=== PATIENT | female | born 1960 | race African-American/Black ===

== ENCOUNTER 2024-04-30 14:46 | Inpatient (IN) | payer OTHER, SELFPAY ==
[2024-04-30] VITALS (12 sets, daily range): BP systolic 109–174; BP diastolic 69–102; BMI 25.3
--- NOTE | 2024-04-30 11:03 | ED.GENMED ---
History of Present Illness
General
Chief Complaint: Breathing Problem
Source: patient, ambulance crew and prison
Time Seen by Provider: 04/30/24 10:42
History of Present Illness
History of Present Illness:
64yoF with a history of type 1 diabetes, mechanical heart valve on Coumadin, ESRD on dialysis M/W/F, chronic respiratory failure on 2L NC, CHF, CVA, chronic pain on opioids, smoldering multiple myeloma, hypertension, hyperlipidemia, anemia, and
seizures presenting via EMS for evaluation of shortness of breath. Majority of history is provided by physician at her prison. Patient was recently admitted on 04/20/[address] head showed a small intracranial hemorrhage which
was monitored without surgical intervention. She was discharged from [facility] yesterday night and arrived at [facility] around 9 PM. She apparently started to have shortness of breath this morning and looked volume
overloaded prompting EMS call. Patient was last dialyzed 2 days ago and is due for dialysis later this afternoon. She denies any chest pain. No reported fevers.
Phy Exam
Physical Exam
Physical Exam:
Chronically ill appearing female, mildly tachypneic
General Physical Exam
General Presentation: no apparent distress
General age: appears older than age
General Skin: warm and dry
General Habitus: elderly
General Mental: alert
ENT Exam
ENT Exam: normocephalic
Cardiovascular Exam
Cardiovascular Exam: regular rate/rhythm and other (mechanical click. 2+ pitting edema to bilateral lower extremities)
Pulmonary Exam
Pulmonary Exam: other (Bibasilar rales. Mildly tachypneic. Oxygen saturation in the 90s on her home oxygen. R tunneled dialysis catheter in place.)
Neurological Exam
Neurological Exam: alert
Skin Exam
Skin Exam: normal color and warm/dry
Psychiatric Exam
Psychiatric Exam: normal mood/affect
Scores
Heart Failure Risk
Heart Failure Risk Score: Not Applicable
Course
Orders/Labs/Results
Orders:
Orders
04/30/24 10:43
Electrocardiogram (*1) Urgent
Reason for Study: Shortness of Breath
EKG- Treatment ONCE
CR Chest - 2 Views Urgent
Comment:
Reason For Exam: SOB
04/30/24 11:22
COVID-19 Antigen Urgent
Source: Nasal Swab
Influenza A+B Rapid Molecular Urgent
YARELI Source: Nasal Swab
Specimen Description:
04/30/24 12:38
Complete Blood Count/With Diff Urgent
Comprehensive Metabolic Panel Urgent
NT-proBNP Urgent
Prothrombin Time Urgent
Troponin I Urgent
04/30/24 13:16
Electrocardiogram (*1) Urgent
Reason for Study: Shortness of Breath
EKG- Treatment ONCE
04/30/24 13:20
CT Chest W/o Iv Contrast Urgent
Comment:
Reason For Exam: SOB, abnormal CXR
04/30/24 13:45
Echo 2D MMode Color/Doppler Stat
Reason for Study: SOB, ACS, elevated trop
04/30/24 14:13
Admit/Transfer Patient As Directed
Co-Sign Provider:
Level of Care: Inpatient admission
Assign to:: Telemetry
Physician / Group: chacho
Diagnosis: chf exacerbation/esrd
Reason for Telemetry: Arrhythmia
Date to Stop Telemetry: 05/03/24
Time to Stop Telemetry: 11:00
Reason for Hospitalization: chf exacerbation/ esrd
Expected length of stay greater than two midnights?: Yes
ELOS- Estimated Length of Stay in days: 2
I certify the patient meets the requirements for IP care: Yes
PRN Pain Medication Management As Directed
May give lesser potent ordered pain med per pt: Yes
preference::
Protocol:: Medication orders for pain may be administered in a
manner that supports deferring to patient preference
when the pt is:
- Requesting an ordered lesser potent pain medication.
Least to most potent pain medications are defined
as: acetaminophen < NSAID < tramadol < opioids
(morphine, oxycodone, hydromorphone).
- Requesting a lesser dose of the same medication IF
ORDERED.
- Requesting a less intrusive route of administration
if both routes are prescribed by the provider (PO <
IV).
04/30/24 14:14
Code Status As Directed
Resuscitation Status: Full Code
04/30/24 Dinner
Potassium, 2 Gram
04/30/24 15:06
Troponin I Q6H
Acetaminophen [Tylenol] 650 mg PO Q4HPRN PRN
Albuterol [ProAIR HFA INHALER] 2 puff INH R Q8HPRN PRN
Bisacodyl [Dulcolax] 10 mg RECTAL DAILYPRN PRN
Bisacodyl [Dulcolax] 5 mg PO [id number] PRN
Dextrose 50%-Water [Dextrose 50% Syringe] 12.5 grams IV [id number] PRN
Glucagon [GlucaGen] 1 mg IM PRN PRN
Ipratropium/Albuterol Sulfate [Duoneb] 3 ml INH R Q6HPRN PRN
Lorazepam [Ativan] 0.5 mg PO TIDPRN PRN
Magnesium Hydroxide [Milk of Magnesia] DOSE ml PO HSPRN PRN
Ondansetron Orally Disint [Zofran Odt (Orally Disintegrating)] 4 mg PO Q6HPRN PRN
Oxycodone [Roxicodone] 15 mg PO Q6HPRN PRN
Polyethylene Glycol Powder [Miralax] 17 grams PO DAILYPRN PRN
melatonin 1 mg PO HSPRN PRN
04/30/24 15:06
CARDIOLOGY CONSULT Routine
Consulting Provider: Jerome Mckeon
Was physician already notified: Yes
NEPHROLOGY CONSULT Routine
Consulting Provider: Yasir Mixon
Was physician already notified: Yes
VTE Contraindication Routine
VTE Mechanical Device Contraindication: Medical Contraindication
Pharmocologic Contraindication: Medical Contraindication
Activity As Directed
Activity Level: As Tolerated
Bedside Glucose Monitoring As Directed
Frequency: AC&HS
Additional Instructions:: Change to q6h if pt on TPN, tube feeding or not eating
Vital Signs As Directed
Frequency: Per unit guidelines
04/30/24 16:30
Insulin Aspart Corrective Low [Novolog Flexpen-Low Resistance] See Protocol SC AC
04/30/24 20:00
Carvedilol [Coreg] 25 mg PO BID
04/30/24 21:06
Troponin I Q6H
04/30/24 22:00
Atorvastatin [Lipitor] 40 mg PO HS
Divalproex Extended Rel. 24 Hr [Depakote ER (24 Hr Release)] 250 mg PO HS
05/01/24 03:06
Troponin I Q6H
05/01/24 06:00
Complete Blood Count/With Diff IN AM
Comprehensive Metabolic Panel IN AM
Glycohemoglobin (HgbA1c) IN AM
05/01/24 08:00
Amiodarone [Pacerone] 200 mg PO DAILY
Calcitriol [Rocaltrol] 0.25 mcg PO DAILY
Cyanocobalamin [Vitamin B-12] 1,000 mcg PO DAILY
Ezetimibe [Zetia] 10 mg PO DAILY
FOLic ACID [Folvite] 1 mg PO DAILY
Ferrous Sulfate [Feosol] 325 mg PO DAILY
Pantoprazole [Protonix] 40 mg PO DAILY
Thiamine HCl [Vitamin B1] 100 mg PO DAILY
insulin glargine [Lantus Solostar U-100 Insulin] 10 unit SC DAILY
05/01/24 09:06
Troponin I Q6H
05/02/24 20:00
Famotidine [Pepcid] 20 mg PO Q48H
05/03/24 11:00
DC Protocol for Telemetry ONCE
Abnormal Lab Results
04/30/24
12:38
WBC 11.8 H 10^3/uL
(4.8-10.8)
RBC 2.82 L 10^6/uL
(4.20-5.40)
Hgb 8.7 L g/dL
(12.0-16.0)
Hct 25.9 L %
(37.0-47.0)
RDW 17.6 H %
(11.5-14.5)
Plt Count 114 L 10^3/uL
(130-400)
MPV 10.8 H fL
(7.4-10.4)
Abs Immat Gran (auto) 0.1 H 10^3/uL
(0-0.05)
Absolute Neuts (auto) 10.2 H 10^3/uL
(1.4-6.5)
Absolute Lymphs (auto) 0.6 L 10^3/uL
(1.2-3.4)
Absolute Monos (auto) 0.9 H 10^3/uL
(0.1-0.6)
Immature Gran % 0.8 H %
(0-0.5)
Neutrophils % 86.5 H %
(42.2-75.2)
Lymphocytes % 4.8 L %
(20.5-51.1)
PT 31.0 H Sec
(11.4-14.6)
Sodium 133 L mmol/L
(135-145)
Potassium 5.6 H mmol/L
(3.5-5.1)
Chloride 95 L mmol/L
(98-107)
Carbon Dioxide 16 L mmol/L
(22-30)
BUN 45 H mg/dl
(7-17)
Creatinine 5.4 H* mg/dL
(0.6-1.0)
Glucose 158 H mg/dl
(70-99)
Total Bilirubin 1.9 H mg/dl
(0.2-1.3)
AST 70 H U/L
(14-36)
Troponin I 11.800 H* ng/ml
04/30/24 12:38
04/30/24 12:38
Vital Signs
Initial and Last Documented VS:
Initial Vital Signs
BP
152/95
04/30/24 10:36
Last Documented Vital Signs
Temp Pulse Resp BP Pulse Ox
97.6 F 97 37 174/92 96
04/30/24 10:44 04/30/24 16:00 04/30/24 16:00 04/30/24 16:00 04/30/24 16:00
MDM/Problems Addressed
Differential Diagnosis Includes:
64yoF with a complex PMH including ESRD on HD, T1DM, mechanical heart valve on Coumadin, CAD, CHF. Recently discharged from [facility] after admission for an intracranial hemorrhage. [facility] at [facility] prison last [facility]. Arrives today with acute
shortness of breath. Due for dialysis today. Chronically on 2L NC. Oxygen saturation 97% on room air. She is chronically ill-appearing and mildly tachypneic. Bibasilar rales noted on exam as well as 2+ pitting edema peripherally. Differential
diagnosis includes but is not limited to: CHF exacerbation, ACS, pneumonia, viral syndrome
Initial ED plan: Check cardiac labs, INR, COVID/flu testing, EKG, and CXR.
*EKG
Interpreted by ED Provider?: Yes
EKG Intrepretation Date: 04/30/24
Heart Rate: 86
Rate: normal
Rhythm: a-fib
[place]: normal axis
QRS Pattern: left bundle branch block
Ischemia: no ischemia
*Critical Care Note
Total Time (30-74mins, 75-104mins- exclusive of procedures): Not Applicable
Update Note
Update Note:
Labs reveal a troponin of 11.8. EKG shows left bundle branch block. Chest x-ray shows mild pulmonary edema with a right sided opacity (ddx: pneumonia vs. mass). CT chest ordered for further evaluation of this.
Patient is a poor historian. I made multiple phone calls to discuss patient's case. I spoke with daughter, trauma attending at [facility], as well as physician at her nursing facility. Patient has had multiple recent admissions at both [facility]
and [facility]. She had a cardiac arrest in December 2023 which was reportedly from [facility]. Admission in February for group B strep sepsis and admission in March for a GI bleed with an NSTEMI. She was admitted at [facility] from
04/20/24-04/29/24. Per discussion with trauma attending, her intracranial hemorrhage was thought to be nontraumatic. She was evaluated by neurosurgery who thought she may have underlying amyloidosis. This was managed conservatively with monitoring.
Her last troponin at [facility] on 04/21/24 was 119. EKG 2 days ago also showed a LBBB. Last echocardiogram in 04/24/24 showed an EF of 55%, mild-moderate mitral regurgitation, and severe tricuspid regurgitation.
Cardiology, nephrology, and hospitalist made aware of patient case. Nephrology questioning whether patient can be transferred to [facility]. I called and spoke with the nursing digital account supervisor at [facility] and they are currently at capacity and not
accepting transfers other than trauma at this time. Patient admitted for further management.
ED Attending Note
-
Portions of this chart may have been created with voice recognition software.� Occasional wrong word or��sound alike� substitutions may have occurred due to the inherent limitations of voice recognition software.
Discharge Plan
Departure
Patient Disposition: Admit
Date of Disposition: 04/30/24
Time of Disposition: 13:36
Presentation/result/management discussed w/ accepting MD/DO: Hospitalist
Discharge Problem:
Shortness of breath, Elevated troponin
Interventions
Interventions:
*Risk Screen - Suicide Last Done: 04/30/24 10:44
*General Assessment Last Done: 04/30/24 10:44
*Neglect/Abuse Screening Last Done: 04/30/24 10:44
*ED COVID-19 Vaccine History Last Done: 04/30/24 10:44
ED- Cardiac Assessment Last Done: 04/30/24 10:44
ED- Pulmonary Assessment Last Done: 04/30/24 10:44
[2024-04-30 12:42] LABS: COVID-19 Antigen Negative (Negative)
[2024-04-30 12:47] LABS: % Basophils 0.2 % (0-2); % Immature Granulocytes 0.8 % (0-0.5); % Lymphocytes 4.8 % (20.5-51.1); % Monocytes 7.7 % (1.7-9.3); % Neutrophils 86.5 % (42.2-75.2); Absolute Immature Granulocytes 0.1 10^3/uL (0-0.05); Absolute Lymphocytes 0.6 10^3/uL (1.2-3.4); Absolute Monocytes 0.9 10^3/uL (0.1-0.6); Absolute Neutrophils 10.2 10^3/uL (1.4-6.5); Hematocrit 25.9 % (37.0-47.0); Hemoglobin 8.7 g/dL (12.0-16.0); Mean Corp Hgb Conc. 33.6 g/dL (33.0-37.0); Mean Corpuscular Hgb 30.9 pg (27.0-31.0); Mean Corpuscular Volume 91.8 fL (81.0-99.0); Mean Platelet Volume 10.8 fL (7.4-10.4); Nucleated Red Blood Cells % 0 %; Platelet Count 114 10^3/uL (130-400); Red Blood Cell Count 2.82 10^6/uL (4.20-5.40); Red Cell Dist. Width 17.6 % (11.5-14.5); White Blood Cell Count 11.8 10^3/uL (4.8-10.8)
[2024-04-30 13:01] LABS: ALT (SGPT) 19 U/L (0-35); AST (SGOT) 70 U/L (14-36); Albumin 3.8 g/dl (3.5-5.0); Alkaline Phosphatase 99 U/L (38-126); Blood Urea Nitrogen 45 mg/dl (7-17); Calcium 8.4 mg/dl (8.4-10.2); Carbon Dioxide 16 mmol/L (22-30); Chloride 95 mmol/L (98-107); Glucose 158 mg/dl (70-99); Potassium 5.6 mmol/L (3.5-5.1); Sodium 133 mmol/L (135-145); Total Bilirubin 1.9 mg/dl (0.2-1.3); eGFR 8.42
[2024-04-30 13:13] LABS: NT-proBNP > 27000 pg/ml
--- NOTE | 2024-04-30 14:26 | HPS.HSE ---
Family Physician
-
Family Physician: Damian Daniel MD
Chief Complaint
-
shortness of breath
History of Present Illness
65-year-old female past medical history of type 1 diabetes, mechanical heart valve on Coumadin, ESRD on hemodialysis Friday, Friday, Friday, chronic respiratory failure on 2 L, CHF, CVA, chronic pain, smoldering multiple myeloma, hypertension,
hyperlipidemia, anemia, seizures presenting for shortness of breath.
Patient was recently admitted at [facility] on 04/[address] head showed small intracranial hemorrhage which was monitored without surgical intervention. She was discharged from [facility] yesterday and arrived at [place]
[facility] at 9 PM. She started shortness of breath this morning and looked volume overloaded prompting EMS call. She was dialyzed 2 days ago and is due for dialysis later this afternoon. She denies chest pain. Denies fever.
As per ER who discussed with physician at [facility] patient had cardiac arrest in December due to anaphylaxis from ceftriaxone.
In March she had GI bleeding as well as NSTEMI in the setting of GI bleeding. Catheterization was not pursued.
She also recently had sepsis at some point although details of this are unclear.
Medical History
Past Medical History
Past Medical History: Reports Other (type 1 diabetes, mechanical heart valve on Coumadin, ESRD on hemodialysis Friday, Friday, Friday, chronic respiratory failure on 2 L, CHF, CVA, chronic pain, smoldering multiple myeloma, hypertension,
hyperlipidemia, anemia, seizures)
Past Surgical History: Reports Other (mechanicl mitral valve )
Social History
Tobacco: Non-smoker
Alcohol: None
Drug: None
Family History
Family History: Not pertinent
Allergies / Home Medications
Allergies reflects when Allergies were last updated in [facility].
Home Medications with original date entered in [facility]
Allergy/Medication List:
Home Medications
acetaminophen 325 mg tablet (Tylenol) 650 mg PO Q4HPRN PRN mild pain 04/30/24
albuterol sulfate 90 mcg/actuation aerosol inhaler 2 puff inhalation R Q8HPRN PRN sob 04/30/24
amiodarone 200 mg tablet 200 mg PO DAILY 04/30/24
atorvastatin 40 mg tablet (Lipitor) 40 mg PO HS 04/30/24
bisacodyl 10 mg rectal suppository (Dulcolax (bisacodyl)) 10 mg MA DAILYPRN PRN constipaiton 04/30/24
bisacodyl 5 mg tablet,delayed release (Dulcolax (bisacodyl)) 5 mg PO [id number] PRN constipation 04/30/24
calcitriol 0.25 mcg capsule 0.25 mcg PO DAILY 04/30/24
carvedilol 25 mg tablet (Coreg) 25 mg PO BID 04/30/24
cyanocobalamin (vitamin B-12) 1,000 mcg tablet 1,000 mcg PO DAILY 04/30/24
divalproex 250 mg tablet,extended release 24 hr 250 mg PO HS 04/30/24
ezetimibe 10 mg tablet (Zetia) 10 mg PO DAILY 04/30/24
famotidine 20 mg tablet (Pepcid) 20 mg PO DAILY 04/30/24
ferrous sulfate 325 mg (65 mg iron) tablet 325 mg PO DAILY 04/30/24
folic acid 1 mg tablet 1 mg PO DAILY 04/30/24
insulin glargine 100 unit/mL (3 mL) subcutaneous pen (Lantus Solostar U-100 Insulin) 10 unit SC DAILY 04/30/24
ipratropium 0.5 mg-albuterol 3 mg (2.5 mg base)/3 mL nebulization soln 3 ml inhalation R Q6HPRN PRN sob 04/30/24
lorazepam 0.5 mg tablet 0.5 mg PO TIDPRN PRN anxiety 04/30/24
magnesium hydroxide 400 mg/5 mL oral suspension (Milk of Magnesia) 2,400 mg PO HSPRN PRN constipation 04/30/24
melatonin 1 mg tablet 1 mg PO HSPRN PRN sleep 04/30/24
ondansetron 4 mg disintegrating tablet 4 mg PO Q6HPRN PRN nausea 04/30/24
oxycodone 15 mg tablet 15 mg PO Q6HPRN PRN severe pain 04/30/24
pantoprazole 40 mg tablet,delayed release (Protonix) 40 mg PO DAILY 04/30/24
polyethylene glycol 3350 17 gram oral powder packet (Miralax) 17 g PO DAILYPRN PRN constipation 04/30/24
thiamine HCl (vitamin B1) 100 mg tablet 100 mg PO DAILY 04/30/24
vancomycin 500 mg intravenous solution 500 mg PO .THREE TIMES A WEEK 04/30/24
warfarin 7.5 mg tablet 0 mg PO UD 04/30/24
Review of Systems
-
History Source: Patient
A 12 point ROS was completed and negative except as noted: Yes
Constitutional: Reports No Symptoms
EENT: Reports No Symptoms
Respiratory: Reports No Symptoms
Cardiac: Reports No Symptoms
Abdomen/GI: Reports No Symptoms
: Reports No Symptoms
Musculoskeletal: Reports No Symptoms
Skin: Reports No Symptoms
Neurological: Reports No Symptoms
Endocrine: Reports No Symptoms
Hematologic/Lymphatic: Reports No Symptoms
Psych: Reports No Symptoms
Physical Exam
Vital Signs
Vital Signs
Temp Pulse Resp BP Pulse Ox
97.6 F 103 30 152/95 97
04/30/24 10:44 04/30/24 11:15 04/30/24 11:15 04/30/24 10:44 04/30/24 11:15
Physical Exam
General: Well Developed, Well Nourished and No Apparent Distress
HEENT: NormoCephalic, Moist mucous membranes and Atraumatic
Respiratory: Clear
Cardiac: S1/S2 and Regular Rhythm; No Murmur or Rub
GI: Soft, Non Tender, Non Distended and Normal Bowel Sounds; No Organomegaly
Rectal: Deferred by Provider
Musculoskeletal: No Clubbing, No Cyanosis and No Edema
Skin: No Rash
Neuro: Nonfocal/grossly intact
Laboratory Results
-
04/30/24 12:38
04/30/24 12:38
Laboratory Results
PT 31.0 Sec (11.4-14.6) H 04/30/24 12:38
INR 3.00 04/30/24 12:38
Total Bilirubin 1.9 mg/dl (0.2-1.3) H 04/30/24 12:38
AST 70 U/L (14-36) H 04/30/24 12:38
ALT 19 U/L (0-35) 04/30/24 12:38
Alkaline Phosphatase 99 U/L (38-126) 04/30/24 12:38
Troponin I 11.800 ng/ml H* 04/30/24 12:38
Data Reviewed
-
Lab Data: Labs Reviewed by me
Old Records: Reviewed
Impression/Plan
-
IMPRESSION:
PLAN:
# Acute CHF exacerbation/volume overload secondary to ESRD
# Hyperkalemia
# Metabolic acidosis
-Chest x-ray shows cardiomegaly, mild CHF, small volume loculated fluid along right major fissure, focal airspace opacity right midlung
-Nephrology consulted for dialysis
-Need records from [facility]
-Attempted to call son for further history and no response
-Spoke with daughter who is not sure about how much Coumadin she takes
# Possible pneumonia
-Leukocytosis
-CT chest pending
# Nonischemic myocardial injury secondary to volume overload/ESRD versus less likely NSTEMI
-No chest pain
-Troponin 10
-EKG shows left bundle branch block no prior for comparison
-Echo pending
-Trend troponins
-Cardiology consulted
# Recent small intracranial hemorrhage
-Monitored at [facility] without intervention
Possible Cdif?
-Oral vancomycin on patient's medication list but do not know anything further about this
Chronic heart failure
-Continue Coreg
Anemia unknown chronicity
-Hemoglobin 8.7
Mild thrombocytopenia
-Platelets 116
Type 1 diabetes
-Continue Lantus 10 units
-7 sliding scale
Mechanical mitral valve
-Continue Coumadin but dose unknown, will try to get information
-INR 3
-Daily INR
History of tricuspid valve tear
Paroxysmal atrial fibrillation
-Continue amiodarone
History of cardiac arrest secondary to anaphylaxis
-Unclear why on amiodarone
ESRD on hemodialysis Friday, Friday, Friday
-Patient with tunneled catheter and dialysis recently started
-Continue calcitriol
Chronic hypoxemic respite failure on 2 L
History of GI bleeding/NSTEMI
History of CVA
-Continue statin
Chronic pain
-Continue oxycodone
History of smoldering myeloma
Essential hypertension
Hyperlipidemia
-Continue statin, Zetia
History of seizures
-Continue Depakote
Anxiety/depression
-Continue Ativan
Full code
DVT prophylaxis�Coumadin
Renal diet
--- NOTE | 2024-04-30 14:30 | CON.CAR ---
Addendum entered and electronically signed by Jerome Mckeon MD 04/30/24 15:28:
Complex and unfortunate 64-year-old woman with diabetes, bioprosthetic aortic valve replacement, mechanical mitral valve replacement in 2018, end-stage renal disease on hemodialysis, heart failure EF, prior stroke with, multiple myeloma, chronic
pain, hypertension, hyperlipidemia, seizures, TIPPLE BOSS hemorrhage, remote ICD with lead extraction and device extraction for endocarditis in 2016, possible arrest related to anaphylaxis, sepsis with negative BETTY, GI bleed and probable 9 ST segment
elevation OR. Discharged yesterday to skilled facility for intracranial hemorrhage manage medically, sent to [facility] emergency department for dyspnea with proBNP greater than 27,000 and a troponin of 11.8. She had low level detectable troponin
at [facility]. In April, EF was 55% with mild to moderate MR and severe TR. She has true aspirin allergy.. In the past hospice has been recommended. At present she denies chest pain, complains of leg pain is her only issue.
PMH/PSH/FH/SH: Reviewed, as above and as below
Allergies: Numerous see summary sheet
Outpatient medicines: Per summary sheet
132/79, pulse 90, respiratory 31, afebrile, impaired vision, complaining of distress and dyspnea but no chest pain, prostatic first heart sound, diminished breath sounds in bases neck veins elevated abdomen benign distal pulses intact with edema
Chest x-ray: Small effusions, CHF with edema, hemodialysis catheter, cardiomegaly
ECG sinus rhythm, first-degree AV block, left bundle branch block, prolonged QT
White count 11.8, hemoglobin 8.7, proBNP greater than 27,000, troponin 11.8, INR 3
Impression: As below
Plan:
Very unfortunate situation with the patient and heart failure in the setting of end-stage renal disease, acute on chronic HFpEF, comorbidities and now with a troponin of 11.8 which presumably is a true non-ST segment elevation OR.
Strategy should be very conservative.
Keep INR close to 3
At present, would continue carvedilol and warfarin.
Volume management per nephrology via hemodialysis
Patient is not a candidate for cardiac procedures
Prognosis is poor. Goals of care, CODE STATUS, palliative care and hospice all important issues to resolve.
.
Original Note:
Consultation
Consultation Request
Date/Time Consultation Performed: 04/30/24
Requesting Provider: Violet Bernard PA-C
Performing Provider: Jody Winchester PA-C for Dr. CATHLEEN Mckeon
Reason for Consultation: SOB
Medical History
-
Chief Complaint: SOB
History of Present Illness:
Patient is a 64-year-old female with past medical history of type 2 diabetes, bioprosthetic AVR in 2006, mechanical mitral valve 2018, on chronic Coumadin, end-stage renal disease on hemodialysis started within the last 1 to 2 months, chronic heart
failure with improved EF, history of stroke, chronic pain, smoldering multiple myeloma, hypertension, hyperlipidemia, history of seizures, history of multiple brain bleeds secondary to falls, chronic left bundle branch block, history of
cardiomyopathy status post ICD in 2006 with subsequent removal due to endocarditis in 2015, admission to outside hospital for cardiac arrest felt to be secondary to anaphylaxis from Rocephin 12/2023, history of admission for sepsis with BETTY negative
for evidence of valve involvement, history of GI bleed admission 03/2024 with NSTEMI felt to be ischemia from GI bleed medically managed. Admissions have been either at [facility] or at [facility]. Prior to this she had lived with her daughter in
[facility] and her care was through [facility], however then more recently moved to live with her sister in [place]. She was discharged from most recent admission to [facility] for fall and intracranial hemorrhage medically managed to
[facility] last evening at 9PM. They noted that she was short of breath and she was brought to [facility] for evaluation. proBNP greater than 27,000. Troponin 11.8. During admission to [facility] 04/20/24-04/29/24 she had troponin of
119 which is equivalent to troponin here of 0.119. She also had echocardiogram on 04/24/2024 with EF 55% mild to moderate MR, severe TR. Her daughter relates that in past she was on Plavix, Coreg, losartan, atorvastatin. She has history of hives to
aspirin therapy. Daughter also relays that patient was recently told she has 6 to 12 months to live and was recommended hospice. Since patient has been told that she has reportedly had significant anxiety. Her daughter has discussed getting
patient back down to [place] to live with her again.
PMH:
type 2 diabetes
bioprosthetic AVR in 2006
mechanical mitral valve 2019, on chronic Coumadin
end-stage renal disease on hemodialysis started within the last 1 to 2 months
chronic heart failure with improved EF
history of stroke, chronic pain
smoldering multiple myeloma
hypertension
hyperlipidemia
history of seizures
history of multiple brain bleeds secondary to falls, most recently 04/20/24-04/29/24 resulting in admission to [facility]
chronic left bundle branch block
history of cardiomyopathy status post ICD in 2006 with subsequent removal due to endocarditis in 2015
admission to outside hospital for cardiac arrest felt to be secondary to anaphylaxis from Rocephin 12/2023
history of admission to OSH for sepsis with BETTY negative for evidence of valve involvement
history of GI bleed admission to OSH 03/2024 with NSTEMI felt to be ischemia from GI bleed medically managed
Past Medical History
Past Medical History: Other (in HPI)
Social History
Tobacco: Non-Smoker
Alcohol: None
Living: Other (SNF)
Employment: Retired
Family History
Family History: Unable to Obtain
Allergies / Home Medications
�Medication �Instructions �Recorded �Confirmed �Type
acetaminophen 325 mg tablet 650 mg PO Q4HPRN PRN mild pain 04/30/24 04/30/24 History
(Tylenol)
albuterol sulfate 90 mcg/actuation 2 puff inhalation R Q8HPRN PRN sob 04/30/24 04/30/24 History
aerosol inhaler
amiodarone 200 mg tablet 200 mg PO DAILY 04/30/24 04/30/24 History
atorvastatin 40 mg tablet (Lipitor) 40 mg PO HS 04/30/24 04/30/24 History
bisacodyl 10 mg rectal suppository 10 mg DE DAILYPRN PRN constipaiton 04/30/24 04/30/24 History
(Dulcolax (bisacodyl))
bisacodyl 5 mg tablet,delayed 5 mg PO [id number] PRN constipation 04/30/24 04/30/24 History
release (Dulcolax (bisacodyl))
calcitriol 0.25 mcg capsule 0.25 mcg PO DAILY 04/30/24 04/30/24 History
carvedilol 25 mg tablet (Coreg) 25 mg PO BID 04/30/24 04/30/24 History
cyanocobalamin (vitamin B-12) 1,000 mcg PO DAILY 04/30/24 04/30/24 History
1,000 mcg tablet
divalproex 250 mg tablet,extended 250 mg PO HS 04/30/24 04/30/24 History
release 24 hr
ezetimibe 10 mg tablet (Zetia) 10 mg PO DAILY 04/30/24 04/30/24 History
famotidine 20 mg tablet (Pepcid) 20 mg PO DAILY 04/30/24 04/30/24 History
ferrous sulfate 325 mg (65 mg 325 mg PO DAILY 04/30/24 04/30/24 History
iron) tablet
folic acid 1 mg tablet 1 mg PO DAILY 04/30/24 04/30/24 History
insulin glargine 100 unit/mL (3 10 unit SC DAILY 04/30/24 04/30/24 History
mL) subcutaneous pen (Lantus
Solostar U-100 Insulin)
ipratropium 0.5 mg-albuterol 3 mg 3 ml inhalation R Q6HPRN PRN sob 04/30/24 04/30/24 History
(2.5 mg base)/3 mL nebulization
soln
lorazepam 0.5 mg tablet 0.5 mg PO TIDPRN PRN anxiety 04/30/24 04/30/24 History
magnesium hydroxide 400 mg/5 mL 2,400 mg PO HSPRN PRN constipation 04/30/24 04/30/24 History
oral suspension (Milk of Magnesia)
melatonin 1 mg tablet 1 mg PO HSPRN PRN sleep 04/30/24 04/30/24 History
ondansetron 4 mg disintegrating 4 mg PO Q6HPRN PRN nausea 04/30/24 04/30/24 History
tablet
oxycodone 15 mg tablet 15 mg PO Q6HPRN PRN severe pain 04/30/24 04/30/24 History
pantoprazole 40 mg tablet,delayed 40 mg PO DAILY 04/30/24 04/30/24 History
release (Protonix)
polyethylene glycol 3350 17 gram 17 g PO DAILYPRN PRN constipation 04/30/24 04/30/24 History
oral powder packet (Miralax)
thiamine HCl (vitamin B1) 100 mg 100 mg PO DAILY 04/30/24 04/30/24 History
tablet
vancomycin 500 mg intravenous 500 mg PO .THREE TIMES A WEEK 04/30/24 04/30/24 History
solution
warfarin 7.5 mg tablet 0 mg PO UD 04/30/24 04/30/24 History
Review of Systems
-
History Source: Patient and Family
All other systems: Negative unless noted
Physical Exam
Vital Signs
Temp Pulse Resp BP Pulse Ox
97.6 F 103 30 152/95 97
04/30/24 10:44 04/30/24 11:15 04/30/24 11:15 04/30/24 10:44 04/30/24 11:15
Lab Results
04/30/24 12:38
04/30/24 12:38
Troponin I 11.800 ng/ml H* 04/30/24 12:38
Nxj-U-Vafvrhnfgmf Pept > 54108 pg/ml 04/30/24 12:38
Physical Exam
General: Other (chronically ill appearing, lethargic. on supp O2. )
HEENT: Normocephalic, Anicteric and Moist Mucous Membranes
Respiratory: Crackles
Cardiac: S1/S2, Regular Rhythm and Other ([facility] valve click)
GI: Soft, Non Tender, Non Distended and Normal Bowel Sounds
Musculoskeletal: No Clubbing, No Cyanosis and Edema (2+ of B/L LE)
Skin: Warm and Dry
Neuro: Awake (but lethargic. poor historian)
Impression / Plan
-
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
Assessment:
Presentation with SOB
Acute HFpEF
Hyperkalemia
Hyponatremia
Metabolic acidosis
Elevated troponin
type 2 diabetes
bioprosthetic AVR in 2006
mechanical mitral valve 2019, on chronic Coumadin
end-stage renal disease on hemodialysis started within the last 1 to 2 months
chronic heart failure with improved EF
history of stroke, chronic pain
smoldering multiple myeloma
hypertension
hyperlipidemia
history of seizures
Chronic anemia
history of multiple brain bleeds secondary to falls, most recently 04/20/24-04/29/24 resulting in admission to [facility]
chronic left bundle branch block
history of cardiomyopathy status post ICD in 2006 with subsequent removal due to endocarditis in 2015
admission to outside hospital for cardiac arrest felt to be secondary to anaphylaxis from Rocephin 12/2023
history of admission to OSH for sepsis with BETTY negative for evidence of valve involvement
history of GI bleed admission to OSH 03/2024 with NSTEMI felt to be ischemia from GI bleed medically managed
ECHO at [facility] 04/24/24: EF 55%, mild to moderate MR, severe TR
Plan:
-Medically very complex patient new to our health system presented from [facility] last evening after discharge from [facility] yesterday with shortness of breath noted by senior care staff. Patient is poor historian. History obtained
mostly from daughter
-proBNP greater than 27,000. Chest x-ray with evidence of mild CHF and cardiomegaly.
-Volume removal through hemodialysis as able. Nephrology has been consulted
-Troponin elevated at 11.8. On April 21 at [facility] troponin was 119 which translates to troponin of 0.119 here. Trend troponins. Patient without complaints of chest pain
-EKG sinus rhythm with chronic left bundle branch block
-Urgent echo ordered and prelim appears similar to that from [facility] 04/24
-She has history of allergy to aspirin with reaction of hives and shortness of breath. She has been maintained on Plavix and Coumadin as an outpatient, however our most current med list does not include plavix, consider resuming in setting of
elevated trop. INR 3.0 today. unclear who has been managing her INRs as OP
-Would not place on IV heparin given recent fall with intracranial hemorrhage resulting in admission to [facility] last week
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
-Continue outpatient Coreg, Lipitor
-she is listed as being on amiodarone as OP for unclear reasons, attempt to continue
-awaiting records from [facility]
-daughter tells me that patient was recently told she has 6-12 months to live and was recommended hospice. she is presently listed as full code. ongoing goal of care conversations necessary pending clinical progress
-d/w ER PA. d/w daughter via telephone
Data Reviewed
-
EKG: Tracing Personally Visualized and interpreted
Radiology: Report Reviewed by me
Medical Tests (Nuc Med, Echo etc): Report Reviewed by me
Labs: Labs Reviewed by me
Old Records: Requested
--- NOTE | 2024-04-30 14:58 | W.CON.NEPH ---
Consultation
-
Date/Time Consultation Requested: 04/30/2024 2:00 PM
Date/Time Consultation Performed: 04/30/2024 3:00 Pm
Requesting Provider: Dr. Zimmer
Performing Provider: Dr. Mckeon
Reason for Consultation: End-stage renal disease with hypoxia
Medical History
-
Chief Complaint: End-stage renal disease
History of Present Illness:
The patient is a 64-year-old female with past medical history of type 2 diabetes (maintained on insulin), bioprosthetic AVR (on chronic oral anticoagulation therapy) in 2006, mechanical mitral valve 2018, on chronic Coumadin, end-stage renal disease
on hemodialysis started within the last 1 to 2 months MWF, chronic heart failure with improved EF, history of stroke, chronic pain, smoldering multiple myeloma, hypertension, hyperlipidemia, history of seizures, history of multiple brain bleeds
secondary to falls, chronic left bundle branch block, history of cardiomyopathy status post ICD in 2006 with subsequent removal due to endocarditis in 2015, admission to outside hospital for cardiac arrest felt to be [facility], history of admission for sepsis with BETTY negative for evidence of valve involvement, history of GI bleed admission 03/2024 with NSTEMI felt to be ischemia from GI bleed medically managed. Admissions have been either at [facility]or at [facility]. Prior to this she had lived with her daughter in [facility] and her care was through [facility], however then more recently moved to live with her sister in [place]. She was discharged from most recent admission to
[facility] for fall and intracranial hemorrhage medically managed to [facility] last evening at 9PM. They noted that she was short of breath and she was brought to [place] for evaluation. proBNP greater than 27,000. Troponin 11.8. During
admission to [facility] 04/20/24-04/29/24 she had troponin of 119 which is equivalent to troponin here of 0.119. She also had echocardiogram on 04/24/2024 with EF 55% mild to moderate MR, severe TR. Her daughter relates that in past she was on
Plavix, Coreg, losartan, atorvastatin. She has history of hives to aspirin therapy. Daughter also relays that patient was recently told she has 6 to 12 months to live and was recommended hospice. Since patient has been told that she has
reportedly had significant anxiety. She presents to the hospital with increasing shortness of breath and chest x-ray findings consistent with pulmonary edema and possibly right lateral mid lobe pneumonia. Nephrology was consulted as the patient
was of course not dialyzed today and now has significant hypoxia.
Past Medical History
ESRD
type 2 diabetes
bioprosthetic AVR in 2006
mechanical mitral valve 2019, on chronic Coumadin
end-stage renal disease on hemodialysis started within the last 1 to 2 months
chronic heart failure with improved EF
history of stroke, chronic pain
smoldering multiple myeloma
hypertension
hyperlipidemia
history of seizures
history of multiple brain bleeds secondary to falls, most recently 04/20/24-04/29/24 resulting in admission to [facility]
chronic left bundle branch block
history of cardiomyopathy status post ICD in 2006 with subsequent removal due to endocarditis in 2015
admission to outside hospital for cardiac arrest felt to be secondary to anaphylaxis from Rocephin 12/2023
history of admission to OSH for sepsis with BETTY negative for evidence of valve involvement
history of GI bleed admission to OSH 03/2024 with NSTEMI felt to be ischemia from GI bleed medically managed
Social History
Tobacco: Non-Smoker
Alcohol: None
Family History
No CKD
Allergies / Home Medications
Allergy/AdvReac Type Severity Reaction Status Date / Time
ARGENIS Inhibitors Allergy Unknown Unknown Verified 04/30/24 14:44
nitroglycerin Allergy Unknown Unknown Unverified 04/30/24 14:44
Penicillins Allergy Unknown Unknown Verified 04/30/24 14:44
aspirin Allergy Unknown Verified 04/30/24 14:44
ceftriaxone Allergy Unknown Verified 04/30/24 14:44
cyclobenzaprine Allergy Unknown Verified 04/30/24 14:44
gabapentin Allergy Unknown Verified 04/30/24 14:44
hydromorphone Allergy Unknown Verified 04/30/24 14:44
Iodinated Contrast Media Allergy Hives Verified 04/30/24 14:45
isosorbide Allergy Unknown Verified 04/30/24 14:44
lactose Allergy Unknown Verified 04/30/24 14:44
lactulose Allergy Unknown Verified 04/30/24 14:44
metformin Allergy Unknown Verified 04/30/24 14:44
nortriptyline Allergy Unknown Verified 04/30/24 14:44
NSAIDS (Non-Steroidal Allergy Unknown Verified 04/30/24 14:44
Anti-Inflamma
pregabalin Allergy Unknown Verified 04/30/24 14:44
tramadol Allergy Unknown Verified 04/30/24 14:44
aspirin Allergy Hives Uncoded 04/30/24 14:49
�Medication �Instructions �Recorded �Confirmed �Type
acetaminophen 325 mg tablet 650 mg PO Q4HPRN PRN mild pain 04/30/24 04/30/24 History
(Tylenol)
albuterol sulfate 90 mcg/actuation 2 puff inhalation R Q8HPRN PRN sob 04/30/24 04/30/24 History
aerosol inhaler
amiodarone 200 mg tablet 200 mg PO DAILY 04/30/24 04/30/24 History
atorvastatin 40 mg tablet (Lipitor) 40 mg PO HS 04/30/24 04/30/24 History
bisacodyl 10 mg rectal suppository 10 mg KS DAILYPRN PRN constipaiton 04/30/24 04/30/24 History
(Dulcolax (bisacodyl))
bisacodyl 5 mg tablet,delayed 5 mg PO [id number] PRN constipation 04/30/24 04/30/24 History
release (Dulcolax (bisacodyl))
calcitriol 0.25 mcg capsule 0.25 mcg PO DAILY 04/30/24 04/30/24 History
carvedilol 25 mg tablet (Coreg) 25 mg PO BID 04/30/24 04/30/24 History
cyanocobalamin (vitamin B-12) 1,000 mcg PO DAILY 04/30/24 04/30/24 History
1,000 mcg tablet
divalproex 250 mg tablet,extended 250 mg PO HS 04/30/24 04/30/24 History
release 24 hr
ezetimibe 10 mg tablet (Zetia) 10 mg PO DAILY 04/30/24 04/30/24 History
famotidine 20 mg tablet (Pepcid) 20 mg PO DAILY 04/30/24 04/30/24 History
ferrous sulfate 325 mg (65 mg 325 mg PO DAILY 04/30/24 04/30/24 History
iron) tablet
folic acid 1 mg tablet 1 mg PO DAILY 04/30/24 04/30/24 History
insulin glargine 100 unit/mL (3 10 unit SC DAILY 04/30/24 04/30/24 History
mL) subcutaneous pen (Lantus
Solostar U-100 Insulin)
ipratropium 0.5 mg-albuterol 3 mg 3 ml inhalation R Q6HPRN PRN sob 04/30/24 04/30/24 History
(2.5 mg base)/3 mL nebulization
soln
lorazepam 0.5 mg tablet 0.5 mg PO TIDPRN PRN anxiety 04/30/24 04/30/24 History
magnesium hydroxide 400 mg/5 mL 2,400 mg PO HSPRN PRN constipation 04/30/24 04/30/24 History
oral suspension (Milk of Magnesia)
melatonin 1 mg tablet 1 mg PO HSPRN PRN sleep 04/30/24 04/30/24 History
ondansetron 4 mg disintegrating 4 mg PO Q6HPRN PRN nausea 04/30/24 04/30/24 History
tablet
oxycodone 15 mg tablet 15 mg PO Q6HPRN PRN severe pain 04/30/24 04/30/24 History
pantoprazole 40 mg tablet,delayed 40 mg PO DAILY 04/30/24 04/30/24 History
release (Protonix)
polyethylene glycol 3350 17 gram 17 g PO DAILYPRN PRN constipation 04/30/24 04/30/24 History
oral powder packet (Miralax)
thiamine HCl (vitamin B1) 100 mg 100 mg PO DAILY 04/30/24 04/30/24 History
tablet
vancomycin 500 mg intravenous 500 mg PO .THREE TIMES A WEEK 04/30/24 04/30/24 History
solution
warfarin 7.5 mg tablet 0 mg PO UD 04/30/24 04/30/24 History
Review of Systems
-
History Source: Patient
All other systems: Negative unless noted
Respiratory: Trouble Breathing
Physical Exam
Vital Signs
Vital Signs
Temp Pulse Resp BP Pulse Ox
97.6 F 92 29 144/81 99
04/30/24 10:44 04/30/24 14:38 04/30/24 14:38 04/30/24 14:48 04/30/24 13:30
Lab Results
04/30/24 12:38
04/30/24 12:38
WBC 11.8 10^3/uL (4.8-10.8) H 04/30/24 12:38
RBC 2.82 10^6/uL (4.20-5.40) L 04/30/24 12:38
Hgb 8.7 g/dL (12.0-16.0) L 04/30/24 12:38
Hct 25.9 % (37.0-47.0) L 04/30/24 12:38
Plt Count 114 10^3/uL (130-400) L 04/30/24 12:38
Sodium 133 mmol/L (135-145) L 04/30/24 12:38
Potassium 5.6 mmol/L (3.5-5.1) H 04/30/24 12:38
Chloride 95 mmol/L (98-107) L 04/30/24 12:38
Carbon Dioxide 16 mmol/L (22-30) L 04/30/24 12:38
BUN 45 mg/dl (7-17) H 04/30/24 12:38
Creatinine 5.4 mg/dL (0.6-1.0) H* 04/30/24 12:38
eGFR 8.42 04/30/24 12:38
Glucose 158 mg/dl (70-99) H 04/30/24 12:38
Calcium 8.4 mg/dl (8.4-10.2) 04/30/24 12:38
Jrn-N-Ihrqsaynxlv Pept > 92183 pg/ml 04/30/24 12:38
Albumin 3.8 g/dl (3.5-5.0) 04/30/24 12:38
Physical Exam
General: AOx3
HEENT: PERRL, EOMI, Anicteric, Conjunctivae Clear, Ear/Nose Intact, Hearing Normal, Oropharynx Clear/Moist, Neck Supple and Trachea Midline
Respiratory: Crackels, Rhonchi and Normal Excursion
Cardiac: Regular Rate/Rhythm
Breast: Deferred by me
Abdomen: Nontender, Nondistended, Normal Bowel Sounds and No Hepatosplenomegaly
Rectal: Deferred by Provider
Genito-urinary: No Costovertebral Tender
Musculoskeletal: No Clubbing, No Cyanosis and Edema (Plus pretibial edema)
Skin: No Rash, Warm, Dry, No Clubbing, No Cyanosis, Normal Turgor and No Bruising
Neuro: Nonfocal/Grossly Intact
Hematologic/Lymphatic: No Cervical Lymphadenopathy, No Submandibular Lymphadenopathy, No Supraclavicular Lymphadenopathy and Other
Psych: Other (Oriented to time and place, complaining about ER noises and lights)
Vascular Access: CVC (Right IJ)
Data Reviewed
-
Radiology: Image Personally Visualized and interpreted (CXR : pulmonary edema, right mid lung PNA)
Medical Tests (Nuc Med, Echo etc): Other (EKG report reviewed left bundle branch block 86 beats per minute)
Labs: Labs Reviewed by me (BMP CBC)
Assessment/Plan
-
Impression:
ESRD MWF
Metabolic acidosis
Hyperkalemia
DM
Hypoxia with pulmonary edema and possible pneumonia
Diabetes (insulin requiring)
Secondary parathyroidism
A-fib
History of recent intracranial hemorrhage
Mechanical mitral heart valve replacement
Positive troponin/ischemic cardiomyopathy
Coronary artery disease with history of
Anemia
History of seizure
History of CVA
History of smoldering myeloma
History of GI bleed
Right IJ dialysis cath
Plan:
-will provide urgent Hd today for pulmonary edema/hypoxia
-Will attempt ultrafiltration of 3 kg or more pending hemodynamic tolerability
-Will avoid heparin product given recent intracranial hemorrhage
-Maintain calcitriol with secondary hyperparathyroid
-MANOLO will be provided for anemia
[2024-04-30 16:00] LABS: Glucose - Point of Care 169 mg/dl (70-99)
[2024-04-30] MEDS: DUONEB 3 ML INH (16:03)
--- NOTE | 2024-04-30 16:34 | W.PN.NEPH.HD ---
Assessment
-
Patient seen for dialysis in the emergency room
Systolic blood pressure stable with current UF
Progress Note - Hemodialysis
-
Date of Service: April 30, 2024
Duration: 30 minutes and 3 hours
Potassium Bath: 2
Calcium Bath: 2.5
Opti-Dialyzer: 160
Ultrafiltration: Other (3 kg)
Blood Flow: 400
Dialysate Flow: 600
Heparin: None
EPO: 6000
[2024-04-30] MEDS: MANNITOL 25% 12.5 GRAMS IV ×2 (16:57→18:39)
[2024-04-30] MEDS: RETACRIT 6000 UNITS IV (17:10)
[2024-04-30 18:42] LABS: Glucose - Point of Care 122 mg/dl (70-99)
[2024-04-30] MEDS: NOVOLOG FLEXPEN-LOW RESISTANCE SC (18:42)
[2024-04-30] MEDS: HEPARIN 4300 UNITS INTRACATH (19:46)
--- NOTE | 2024-04-30 21:00 | PTCARENOTE ---
Received patient from ED. Patient transferred directly to the bed. Patient AAOx3, drowsy, on 2LNC, lungs decreased, fine crackles at the bases, Afib on the monitor, Right chest HD catheter intact. Patient noted to have a possible stage II on
buttocks, and a possible DTI on Right heel. Large bruise on right hip from recent fall. WOC consulted. Bed alarm placed for safety. Patient verbalized an understanding to ring for all transfers and how to ring. Call matta in reach.
[2024-04-30] MEDS: COUMADIN 7.5 MG PO (21:04)
[2024-04-30] MEDS: COREG 25 MG PO (21:06)
[2024-04-30] MEDS: LIPITOR 40 MG PO (21:07)
[2024-04-30] MEDS: DEPAKOTE ER (24 HR RELEASE) 250 MG PO (21:37)
[2024-04-30] MEDS: ROXICODONE 15 MG PO (21:39)
[2024-04-30 22:09] LABS: Glucose - Point of Care 136 mg/dl (70-99)
[2024-05-01 03:40] VITALS: BP 92/57
--- NOTE | 2024-05-01 03:56 | PTCARENOTE ---
Patient's BP 92/57, HR 100, asymptomatic. Advised covering provider. No new orders.
[2024-05-01 05:44] LABS: % Basophils 0.2 % (0-2); % Immature Granulocytes 0.7 % (0-0.5); % Lymphocytes 3.9 % (20.5-51.1); % Monocytes 4.9 % (1.7-9.3); % Neutrophils 90.3 % (42.2-75.2); Absolute Immature Granulocytes 0.1 10^3/uL (0-0.05); Absolute Lymphocytes 0.4 10^3/uL (1.2-3.4); Absolute Monocytes 0.5 10^3/uL (0.1-0.6); Absolute Neutrophils 9.1 10^3/uL (1.4-6.5); Hematocrit 24.8 % (37.0-47.0); Hemoglobin 8.3 g/dL (12.0-16.0); Mean Corp Hgb Conc. 33.5 g/dL (33.0-37.0); Mean Corpuscular Volume 92.5 fL (81.0-99.0); Mean Platelet Volume 10.8 fL (7.4-10.4); Platelet Count 109 10^3/uL (130-400); Red Blood Cell Count 2.68 10^6/uL (4.20-5.40); Red Cell Dist. Width 17.3 % (11.5-14.5); White Blood Cell Count 10.1 10^3/uL (4.8-10.8)
[2024-05-01 05:55] LABS: INR 3.34; PT 33.7 Sec (11.4-14.6)
[2024-05-01 06:00] VITALS: BMI 25.3
[2024-05-01 06:09] LABS: ALT (SGPT) 23 U/L (0-35); AST (SGOT) 62 U/L (14-36); Albumin 3.1 g/dl (3.5-5.0); Alkaline Phosphatase 84 U/L (38-126); Blood Urea Nitrogen 28 mg/dl (7-17); Calcium 7.9 mg/dl (8.4-10.2); Carbon Dioxide 17 mmol/L (22-30); Chloride 95 mmol/L (98-107); Estimated Creatinine Clearance 15 ml/min; Glucose 233 mg/dl (70-99); Potassium 4.5 mmol/L (3.5-5.1); Sodium 135 mmol/L (135-145); Total Bilirubin 1.3 mg/dl (0.2-1.3)
[2024-05-01 07:45] VITALS: BP 95/62
[2024-05-01 08:01] LABS: Glucose - Point of Care 233 mg/dl (70-99)
[2024-05-01 08:57] LABS: Glycohemoglobin (HgbA1c) 6.4 % (4.0-5.6)
[2024-05-01] MEDS: FOLVITE 1 MG PO (09:10)
[2024-05-01] MEDS: VITAMIN B-12 1000 MCG PO (09:10)
[2024-05-01] MEDS: PROTONIX 40 MG PO (09:10)
[2024-05-01] MEDS: FEOSOL 325 MG PO (09:10)
[2024-05-01] MEDS: PACERONE 200 MG PO ×2 (09:10→20:30)
[2024-05-01] MEDS: ROCALTROL 0.25 MCG PO (09:10)
[2024-05-01] MEDS: ZETIA 10 MG PO (09:10)
[2024-05-01] MEDS: COREG 25 MG PO (09:10)
[2024-05-01] MEDS: VITAMIN B1 100 MG PO (09:11)
[2024-05-01] MEDS: NOVOLOG FLEXPEN-LOW RESISTANCE 2 UNITS SC (09:23)
[2024-05-01] MEDS: ROXICODONE 15 MG PO (09:27)
[2024-05-01] MEDS: LANTUS 0.1 UNITS SC (10:05)
[2024-05-01 11:20] VITALS: BP 87/53
--- NOTE | 2024-05-01 11:45 | W.PN.NEPH.PH ---
Today's Communication / Plan
-
Next dialysis will be provided for Friday
Assessment/Plan
-
Impression:
ESRD MWF
Metabolic acidosis
Hyperkalemia
DM
Hypoxia with pulmonary edema and possible pneumonia
Diabetes (insulin requiring)
Secondary parathyroidism
A-fib
History of recent intracranial hemorrhage
Mechanical mitral heart valve replacement
Positive troponin/ischemic cardiomyopathy
Coronary artery disease with history of
Anemia
History of seizure
History of CVA
History of smoldering myeloma
History of GI bleed
Right IJ dialysis cath
Plan:
-Status post emergent dialysis provided yesterday
-Respiratory status now more stabilized, patient feels much better
-Will avoid heparin product given recent intracranial hemorrhage
-Maintain calcitriol with secondary hyperparathyroid
-MANOLO will be provided for anemia
-
-
Date of Service: May 01, 2024
CC / HPI / ROS
-
Chief Complaint:
ESRD
History of Present Illness:
ESRD Friday
Hemodynamically labile
Review of Systems:
No fevers
Less short of breath but still requires oxygen
Labs
-
Labs:
WBC 10.1 10^3/uL (4.8-10.8) 05/01/24 05:28
RBC 2.68 10^6/uL (4.20-5.40) L 05/01/24 05:28
Hgb 8.3 g/dL (12.0-16.0) L 05/01/24 05:28
Hct 24.8 % (37.0-47.0) L 05/01/24 05:28
Plt Count 109 10^3/uL (130-400) L 05/01/24 05:28
Sodium 135 mmol/L (135-145) 05/01/24 05:28
Potassium 4.5 mmol/L (3.5-5.1) 05/01/24 05:28
Chloride 95 mmol/L (98-107) L 05/01/24 05:28
Carbon Dioxide 17 mmol/L (22-30) L 05/01/24 05:28
BUN 28 mg/dl (7-17) H 05/01/24 05:28
Creatinine 3.3 mg/dL (0.6-1.0) H 05/01/24 05:28
eGFR 15.20 05/01/24 05:28
Glucose 233 mg/dl (70-99) H 05/01/24 05:28
Calcium 7.9 mg/dl (8.4-10.2) L 05/01/24 05:28
Jud-V-Cmgsmiqrilh Pept > 95297 pg/ml 04/30/24 12:38
Albumin 3.1 g/dl (3.5-5.0) L 05/01/24 05:28
Physical Exam
-
Vital Signs:
Vital Signs
Temp Pulse Resp BP Pulse Ox
97.6 F 101 16 95/62 100
05/01/24 07:45 05/01/24 07:45 05/01/24 07:45 05/01/24 07:45 05/01/24 07:45
Respiratory:: Bilateral: Coarse
Lung Excursion:: Normal
Abdomen:: Nontender and Soft
Bowel Sounds:: Normal
Extremity Edema:: +1: Bilateral:
Sanchez Catheter: No
Other Findings::
Tunneled right IJ catheter
[2024-05-01 11:51] LABS: Glucose - Point of Care 266 mg/dl (70-99)
--- NOTE | 2024-05-01 14:00 | W.PN.CARDCBS ---
Today's Communication / Plan
-
Possible atrial flutter, but rate is reasonable
Double amiodarone to 200 mg twice daily but otherwise no changes
No warfarin today
Continue carvedilol for now
Impression / Plan
-
Primary Quality Assurance Engineer: unknown
Assessment:
Non-ST segment elevation SC with troponin 11.8 and left bundle branch block
Acute HFpEF
type 2 diabetes
bioprosthetic AVR in 2006
mechanical mitral valve 2019, on chronic Coumadin
end-stage renal disease on hemodialysis started within the last 1 to 2 months
chronic heart failure with improved EF
history of stroke, chronic pain
smoldering multiple myeloma
hypertension
hyperlipidemia
history of seizures
Chronic anemia
history of multiple brain bleeds secondary to falls, most recently 04/20/24-04/29/24 resulting in admission to [facility]
chronic left bundle branch block
history of cardiomyopathy status post ICD in 2006 with subsequent removal due to endocarditis in 2015
admission to outside hospital for cardiac arrest felt to be secondary to anaphylaxis from Rocephin 12/2023
history of admission to OSH for sepsis with BETTY negative for evidence of valve involvement
history of GI bleed admission to OSH 03/2024 with NSTEMI felt to be ischemia from GI bleed medically managed
ECHO at [facility] 04/24/24: EF 55%, mild to moderate MR, severe TR
Echo 04/30/2024: EF 50%, small ventricle, moderate LVH with paradoxical septal motion, normal RV, mechanical mitral valve with mean gradient 9, bioprosthetic aortic valve peak gradient 14, moderate to severe TR, pulmonary artery pressure is 77 mmHg
systolic
Plan:
She looks much better today compared to admission having undergone hemodialysis and volume status is improved. She is comfortable, no tachypnea, alert there is no complaints.
Further management per nephrology. For dialysis on Friday.
However, I suspect she is now in atrial flutter. Rate is reasonable, around 100, INR is 3.34, warfarin on hold for today, given absence of distress. Continue to observe. I will double amiodarone to 200 mg twice daily for now.
Continue carvedilol 25 twice daily. May need to reduce dose for blood pressure.
Her echo from yesterday is overall fairly reassuring. EF is still preserved. She has severe pulmonary hypertension however.
Regarding her non-ST segment elevation SC, would not make any changes in her regimen at this time.
Strategy should remain conservative. Given her multiple comorbidities.
Clinical summary: Complex and unfortunate 64-year-old woman with diabetes, bioprosthetic aortic valve replacement, mechanical mitral valve replacement in 2018, end-stage renal disease on hemodialysis, heart failure EF, prior stroke with, multiple
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
ST segment elevation SC. Discharged yesterday to skilled facility for intracranial hemorrhage manage medically, sent to [facility] emergency department for dyspnea with proBNP greater than 27,000 and a troponin of 11.8. She had low level
detectable troponin at [place]. In April, EF was 55% with mild to moderate MR and severe TR. She has true aspirin allergy.. In the past hospice has been recommended. At present she denies chest pain, complains of leg pain is her only issue.
PMH/PSH/FH/SH: Reviewed, as above and as below
Progress Note - Quality Assurance Engineer
Subjective
Date of Service: May 01, 2024:
Current medications: Amiodarone 200 mg a day, atorvastatin 40 mg a day, calcitriol, carvedilol 625 mg twice daily, Depakote, ezetimibe 10 mg a day, iron, folate, pantoprazole, insulin,, warfarin to be dosed daily
87/53, pulse 101, respirate 16, afebrile, weight is 66.8 kg, had been 73.3 kg on presentation, no distress, knows today's Friday, otherwise seems somewhat confused lungs are relatively clear, relatively tachycardic, JVD okay,
Hemoglobin 8.3, platelets 109, CO2 17, creatinine 3.3 troponin 5.5, had been 11.8 at peak, INR is 3.34, no warfarin written for tonight, INR was 3 yesterday
ECG suspect atrial flutter atrial flutter 2-1, left bundle block
Objective
Labs:
05/01/24 05:28
05/01/24 05:28
Labs
Hgb 8.3 g/dL (12.0-16.0) L 05/01/24 05:28
Hct 24.8 % (37.0-47.0) L 05/01/24 05:28
Plt Count 109 10^3/uL (130-400) L 05/01/24 05:28
PT 33.7 Sec (11.4-14.6) H 05/01/24 05:28
INR 3.34 05/01/24 05:28
Sodium 135 mmol/L (135-145) 05/01/24 05:28
Potassium 4.5 mmol/L (3.5-5.1) 05/01/24 05:28
BUN 28 mg/dl (7-17) H 05/01/24 05:28
Creatinine 3.3 mg/dL (0.6-1.0) H 05/01/24 05:28
Glucose 233 mg/dl (70-99) H 05/01/24 05:28
Troponins
04/30/24 04/30/24 04/30/24
12:38 16:53 20:54
Troponin I 11.800 H* 11.700 H* 8.680 H* D
05/01/24 05/01/24 05/01/24
05:28 09:06 11:34
Troponin I 6.240 H* Cancelled 5.500 H*
Vital Signs and I&O:
Vital Signs
Temp Pulse Resp BP Pulse Ox
36.1 C 101 16 87/53 100
05/01/24 11:20 05/01/24 11:20 05/01/24 11:20 05/01/24 11:20 05/01/24 11:20
Vital Signs
Temp Pulse Resp BP Pulse Ox
36.1 C 101 16 87/53 100
05/01/24 11:20 05/01/24 11:20 05/01/24 11:20 05/01/24 11:20 05/01/24 11:20
Intake & Output
04/29/24 04/30/24 05/01/24 05/02/24
07:59 07:59 07:59 07:59
Intake Total 600 / 600
Balance 600 / 600
Physical Exam
Physical Exam
See above
[2024-05-01] MEDS: NOVOLOG FLEXPEN-LOW RESISTANCE 3 UNITS SC ×2 (15:07→17:51)
[2024-05-01 15:45] VITALS: BP 85/54
[2024-05-01 16:07] LABS: Hepatitis B Surface Antigen Negative (Negative)
--- NOTE | 2024-05-01 16:13 | W.PN.HOSP.TC ---
Today's Communication/Plan
-
Hold evening warfarin
Continue with carvedilol
HD per neph
Goals of care discussion with daughter
Assessment / Plan
Assessment / Plan
#NSTEMI
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
#Pulmonary HTN
#H/O LBBB
-Presented with NSTEMI, troponin peaked at 11.8; poor candidate for LHC
-Received urgent dialysis for volume overload; no heparin drip due to bleeding history
-Was recommended by cardiology to continue with conservative measures
-Currently on beta-jeet and warfarin with INR goal of ~3
-Continue to monitor on telemetry and monitor hemodynamics
-Continue with beta-jeet for GDMT of HFrecEF
-Volume status removal with dialysis sessions
-Will have goals of care discussion with daughter if able to reach her
#New AFL
#H/O Paroxysmal AF
-Elevated [id number] though also significant ICH and GIB history
-Currently on warfarin, carvedilol, amiodarone daily at home
-Uptitrated to amiodarone 200 mg twice daily for new AFL
-Will continue on telemetry and monitor for chemical cardioversion
-Poor candidate for DCCV or ablation
#S/P mechanical MVR
#S/P bioprosthetic AVR
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
-Home regimen includes warfarin, INR goal 3 due to history of bleeding
-INR 3.34 today, holding dose for evening of 05/01
-Trend INR
#Chronic hypoxemic respiratory failure
-Per records, baseline 2 L oxygen via nasal cannula
-Likely secondary to heart failure and chronic volume overload
-No signs of hypercapnia; no history of ILD or other primary lung disease
-Home medications include bronchodilators as needed; no standing inhaler
#ESRD
#Secondary hyperparathyroidism
#Anemia of chronic kidney disease
-Suspect ESRD associated with T1DM history, possibly multifactorial
-Home medications include calcitriol for bone mineral disease
-Started on MANOLO for anemia by nephrology
-Status post urgent dialysis for acute volume overload
-Nephrology consulted to resume HD schedule
#T1DM
-Suspect that this is associated with ESRD
-Home regimen includes Lantus 10 units daily; no recent A1c
-Likely well-controlled due to her end-stage renal disease
-Accu-Cheks were added, as well as ISS
-Blood glucose goal 140-180
#Smoldering myeloma
-Unclear if this is still smoldering or has progressed
-Was started on dialysis within the last month or 2, light chain nephropathy (?)
-Should have repeat SPE, UPEP, Light chains as outpatient with oncology
-No evidence of hypercalcemia or bone lesions
#H/O multiple ICH from falls
#H/O seizures
-Multiple falls with ICH while on warfarin for AF and mechanical valve
-Suspect seizures related to previous ICH, parenchymal changes
-Home medications include divalproex nightly
#H/O GIB
-Remains on warfarin due to mechanical valve
#Chronic constipation
-On as needed bowel regimen
#Chronic pain
-Remains on home as needed oxycodone regimen
DVT prophylaxis: Home warfarin, SCDs
Diet: Renal diet
CODE STATUS: Full code, GOC to be had with the daughter
Anticipated Discharge: 24 - 48 hours
Subjective/Interval History
-
Date of Service: May 01, 2024
Seen and examined at the bedside. No acute events since admission, had urgent dialysis yesterday. No acute events overnight. AFVSS this morning
Per cardiology, not a candidate for any coronary interventions. INR 3.34 today
ROS limited by mental status/dementia (?)
Objective Data
-
Labs:
Laboratory Results
05/01/24
05:28
WBC 10.1
Hgb 8.3 L
Hct 24.8 L
Plt Count 109 L
PT 33.7 H
INR 3.34
Sodium 135
Potassium 4.5
Chloride 95 L
Carbon Dioxide 17 L
BUN 28 H
Creatinine 3.3 H
Glucose 233 H
Calcium 7.9 L
Total Bilirubin 1.3
AST 62 H
ALT 23
Alkaline Phosphatase 84
Vital Signs:
Vital Signs
Temp Pulse Resp BP Pulse Ox
97.0 F 101 16 87/53 100
05/01/24 11:20 05/01/24 11:20 05/01/24 11:20 05/01/24 11:20 05/01/24 11:20
I&O
04/30/24 05/01/24 05/02/24
06:59 06:59 06:59
Intake Total 600 / 600
Balance 600 / 600
Review of Systems
-
Unable to obtain full review of systems at this time due to: Dementia and Acuity
Physical Exam
-
General: Well Developed, No Apparent Distress, Comfortable and Appears Chronically Ill
HEENT: Normocephalic, Atraumatic, Moist Mucous Membranes and Anicteric
Respiratory: Rales and Non Labored Respirations; Negative Wheezes, Rhonchi or Accessory Resp Muscle Use
Cardiac: S1/S2, Irregular Rhythm, Murmur and JVD; Negative Rub or Gallop
GI: Soft, Nontender, Nondistended and Normal Bowel Sounds
Musculoskeletal: No Clubbing, No Cyanosis and No Edema
Skin: Warm and Dry; Negative Rash
Neuro: Awake, Alert and Nonfocal/Grossly Intact; Negative Oriented
Psych: Calm
Data Reviewed
-
Labs: Labs Reviewed by me
[2024-05-01 16:24] LABS: Hepatitis B Surface Antibody Positive
[2024-05-01] MEDS: ATIVAN 0.5 MG PO (16:47)
[2024-05-01 17:15] LABS: Glucose - Point of Care 283 mg/dl (70-99)
--- NOTE | 2024-05-01 17:24 | W.PN.UPDATE ---
Update Note
Progress Note Update
I attempted to call the patient's listed contact Smith Ayala at the number in the chart however it went directly to voicemail. I left a message stating to call back so that I could provide an update and obtain further information.
I called Kat[facility] camarillo who states that they have the same contact listed. Reportedly there is also a daughter named Lottie however her contact information is not available. Katty camarillo also specifies that they currently DO NOT KNOW her CODE
STATUS. I spoke with Rocio who is the nurse photographic supervisor today. She is going to look further into the patient's CODE STATUS and call us to update when she obtains information.
Patient remains critically ill with poor long-term prognosis. Would be hospice appropriate
[2024-05-01 19:27] VITALS: BP 94/59
[2024-05-01] MEDS: COREG PO (20:29)
[2024-05-01 22:06] LABS: Glucose - Point of Care 229 mg/dl (70-99)
[2024-05-01] MEDS: LIPITOR 40 MG PO (22:09)
[2024-05-01] MEDS: DEPAKOTE ER (24 HR RELEASE) 250 MG PO (22:09)
[2024-05-01 23:18] VITALS: BP 98/57
[2024-05-02 03:24] VITALS: BP 108/73
[2024-05-02 05:51] LABS: % Basophils 0.2 % (0-2); % Eosinophils 0.2 % (0-6); % Immature Granulocytes 0.9 % (0-0.5); % Lymphocytes 4.6 % (20.5-51.1); % Monocytes 6.7 % (1.7-9.3); % Neutrophils 87.4 % (42.2-75.2); Absolute Immature Granulocytes 0.1 10^3/uL (0-0.05); Absolute Lymphocytes 0.4 10^3/uL (1.2-3.4); Absolute Monocytes 0.6 10^3/uL (0.1-0.6); Hematocrit 24.3 % (37.0-47.0); Hemoglobin 8.3 g/dL (12.0-16.0); Mean Corp Hgb Conc. 34.2 g/dL (33.0-37.0); Mean Corpuscular Hgb 31.1 pg (27.0-31.0); Mean Platelet Volume 10.6 fL (7.4-10.4); Nucleated Red Blood Cells % 1.6 %; Platelet Count 113 10^3/uL (130-400); Red Blood Cell Count 2.67 10^6/uL (4.20-5.40); White Blood Cell Count 9.1 10^3/uL (4.8-10.8)
[2024-05-02 06:00] VITALS: BMI 25.2
[2024-05-02 06:07] LABS: INR 4.42; PT 41.6 Sec (11.4-14.6)
[2024-05-02 06:27] LABS: Blood Urea Nitrogen 47 mg/dl (7-17); Calcium 7.7 mg/dl (8.4-10.2); Carbon Dioxide 24 mmol/L (22-30); Chloride 95 mmol/L (98-107); Estimated Creatinine Clearance 10 ml/min; Glucose 217 mg/dl (70-99); Potassium 4.3 mmol/L (3.5-5.1); Sodium 133 mmol/L (135-145)
[2024-05-02 07:45] VITALS: BP 114/74
[2024-05-02 08:05] LABS: Glucose - Point of Care 235 mg/dl (70-99)
[2024-05-02 09:10] VITALS: BMI 25.2
[2024-05-02] MEDS: VITAMIN B1 100 MG PO (09:12)
[2024-05-02] MEDS: FEOSOL 325 MG PO (09:12)
[2024-05-02] MEDS: COREG 25 MG PO ×2 (09:12→20:44)
[2024-05-02] MEDS: ROCALTROL 0.25 MCG PO (09:12)
[2024-05-02] MEDS: ZETIA 10 MG PO (09:12)
[2024-05-02] MEDS: PACERONE 200 MG PO ×2 (09:12→20:44)
[2024-05-02] MEDS: PROTONIX 40 MG PO (09:12)
[2024-05-02] MEDS: LANTUS 0.1 UNITS SC (09:13)
[2024-05-02] MEDS: FOLVITE 1 MG PO (09:13)
[2024-05-02] MEDS: VITAMIN B-12 1000 MCG PO (09:14)
[2024-05-02] MEDS: NOVOLOG FLEXPEN-LOW RESISTANCE 2 UNITS SC (09:16)
--- NOTE | 2024-05-02 10:35 | W.PN.CARDCBS ---
Addendum entered and electronically signed by Jerome Mckeon MD 05/02/24 12:06:
For now, continue to hold warfarin as INR is up to 4.4. In absence of significant clinical bleeding would not treat with vitamin K or other reversal agents.
Original Note:
Today's Communication / Plan
-
No change in cardiac regimen
Continue carvedilol, warfarin, amiodarone. Amiodarone should be 200 mg twice daily for 2 weeks then once daily
Okay to use midodrine as needed
Strategy of care should be very conservative.
She is a poor candidate for any cardiac procedures. Would not attempt to restore sinus rhythm, heart rate at present is acceptable. Would not favor invasive cardiac procedures for non-ST segment elevation ME.
Ezetimibe, atorvastatin unlikely to change prognosis and could be discontinued in my opinion
Would be appropriate for hospice in my opinion in light of very poor prognosis and numerous comorbidities
We will sign off, please call if strategy is to change
Impression / Plan
-
Primary Dowel Pin Worker: unknown
Assessment:
Non-ST segment elevation ME with troponin 11.8 and left bundle branch block
Atrial fibrillation/flutter
Acute HFpEF
type 2 diabetes
bioprosthetic AVR in 2006
mechanical mitral valve 2019, on chronic Coumadin
end-stage renal disease on hemodialysis started within the last 1 to 2 months
chronic heart failure with improved EF
history of stroke, chronic pain
Multiple myeloma
hypertension
hyperlipidemia
history of seizures
Chronic anemia
history of multiple brain bleeds secondary to falls, most recently 04/20/24-04/29/24 resulting in admission to [facility]
chronic left bundle branch block
history of cardiomyopathy status post ICD in 2006 with subsequent removal due to endocarditis in 2015
admission to outside hospital for cardiac arrest felt to be secondary to anaphylaxis from Rocephin 12/2023
history of admission to OSH for sepsis with BETTY negative for evidence of valve involvement
history of GI bleed admission to OSH 03/2024 with NSTEMI felt to be ischemia from GI bleed medically managed
ECHO at [facility] 04/24/24: EF 55%, mild to moderate MR, severe TR
Echo 04/30/2024: EF 50%, small ventricle, moderate LVH with paradoxical septal motion, normal RV, mechanical mitral valve with mean gradient 9, bioprosthetic aortic valve peak gradient 14, moderate to severe TR, pulmonary artery pressure is 77 mmHg
systolic
Plan:
She seems hemodynamically stable at present, apparently without chest pain and volume status seems appropriate having been on dialysis.
Unfortunately, today she is agitated. Think she can go home the daughter. Confused and somewhat combative.
Given her numerous comorbidities and poor prognosis our strategy should remain very conservative.
Medication recommendations listed above in today's communication.
We will sign off, please call if questions
Clinical summary: Complex and unfortunate 64-year-old woman with diabetes, bioprosthetic aortic valve replacement, mechanical mitral valve replacement in 2018, end-stage renal disease on hemodialysis, heart failure EF, prior stroke with, multiple
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
ST segment elevation ME. Discharged yesterday to skilled facility for intracranial hemorrhage manage medically, sent to [place] emergency department for dyspnea with proBNP greater than 27,000 and a troponin of 11.8. She had low level
detectable troponin at [place]. In April, EF was 55% with mild to moderate MR and severe TR. She has true aspirin allergy.. In the past hospice has been recommended. At present she denies chest pain, complains of leg pain is her only issue.
PMH/PSH/FH/SH: Reviewed, as above and as below
Progress Note - Dowel Pin Worker
Subjective
Date of Service: May 02, 2024:
Resting comfortably upon entry into the room, upon awakening, she says 'I want out of here now' and becomes agitated. Says 'do not play with me' and 'do I have to get violent?'
Does not seem to be in distress. Wants to go home with her daughter, but had been just placed at [facility]
Current medications: Atorvastatin 40 at bedtime, carvedilol 25 twice daily, B12, Depakote, ezetimibe 10 mg a day, Pepcid 20 mg every 48 hours, iron, folate, pantoprazole, thiamine, insulin glargine, amiodarone 200 mg twice daily
114/74, pulse 102, resp rate 18, somewhat agitated but otherwise not in distress exam limited, regular rate and rhythm, prosthetic HTN, not much edema
hemoglobin 8.3, platelets 113, creatinine 4.8, troponin yesterday was 5.5
Telemetry: Atrial flutter with predominant 2-1 conduction
Objective
Labs:
05/02/24 05:24
05/02/24 05:24
Labs
Hgb 8.3 g/dL (12.0-16.0) L 05/02/24 05:24
Hct 24.3 % (37.0-47.0) L 05/02/24 05:24
Plt Count 113 10^3/uL (130-400) L 05/02/24 05:24
PT 41.6 Sec (11.4-14.6) H 05/02/24 05:24
INR 4.42 05/02/24 05:24
Sodium 133 mmol/L (135-145) L 05/02/24 05:24
Potassium 4.3 mmol/L (3.5-5.1) 05/02/24 05:24
BUN 47 mg/dl (7-17) H 05/02/24 05:24
Creatinine 4.8 mg/dL (0.6-1.0) H* 05/02/24 05:24
Glucose 217 mg/dl (70-99) H 05/02/24 05:24
Troponins
04/30/24 04/30/24 04/30/24
12:38 16:53 20:54
Troponin I 11.800 H* 11.700 H* 8.680 H* D
05/01/24 05/01/24 05/01/24
05:28 09:06 11:34
Troponin I 6.240 H* Cancelled 5.500 H*
Vital Signs and I&O:
Vital Signs
Temp Pulse Resp BP Pulse Ox
36.6 C 102 18 114/74 98
05/02/24 07:45 05/02/24 07:45 05/02/24 07:45 05/02/24 07:45 05/02/24 07:45
Vital Signs
Temp Pulse Resp BP Pulse Ox
36.6 C 102 18 114/74 98
05/02/24 07:45 05/02/24 07:45 05/02/24 07:45 05/02/24 07:45 05/02/24 07:45
Intake & Output
04/30/24 05/01/24 05/02/24 05/03/24
07:59 07:59 07:59 07:59
Intake Total 600 / 600 360 / 360
Balance 600 / 600 360 / 360
Physical Exam
Physical Exam
See above
--- NOTE | 2024-05-02 10:47 | W.PN.NEPH.PH ---
Today's Communication / Plan
-
Dialysis tomorrow orders provided
Will provide midodrine predialysis given hemodynamic instability
Assessment/Plan
-
Impression:
ESRD MWF
Metabolic acidosis
Hyperkalemia
DM
Hypoxia with pulmonary edema and possible pneumonia
Diabetes (insulin requiring)
Secondary parathyroidism
A-fib
History of recent intracranial hemorrhage
Mechanical mitral heart valve replacement
Positive troponin/ischemic cardiomyopathy
Coronary artery disease with history of
Anemia
History of seizure
History of CVA
History of smoldering myeloma
History of GI bleed
Right IJ dialysis cath
Plan:
-Dialysis tomorrow orders provided
-Respiratory status now more stabilized, patient feels much better
-Will avoid heparin product given recent intracranial hemorrhage
-Maintain calcitriol with secondary hyperparathyroid
-MANOLO will be provided for anemia
-Unfortunately the patient has severe comorbidities with many ongoing clinical issues which makes maintaining the patient successfully as an outpatient dialysis patient very difficult. I am unsure if she will be clinically viable outside of the
hospital
-I will provide midodrine on dialysis but her ongoing hypotension will make effective ultrafiltration in the outpatient setting very difficult
-
-
Date of Service: May 02, 2024
CC / HPI / ROS
-
Chief Complaint:
ESRD
History of Present Illness:
ESRD Friday
Hemodynamically labile
Review of Systems:
No fevers
Less short of breath but still requires oxygen
Labs
-
Labs:
WBC 9.1 10^3/uL (4.8-10.8) 05/02/24 05:24
RBC 2.67 10^6/uL (4.20-5.40) L 05/02/24 05:24
Hgb 8.3 g/dL (12.0-16.0) L 05/02/24 05:24
Hct 24.3 % (37.0-47.0) L 05/02/24 05:24
Plt Count 113 10^3/uL (130-400) L 05/02/24 05:24
Sodium 133 mmol/L (135-145) L 05/02/24 05:24
Potassium 4.3 mmol/L (3.5-5.1) 05/02/24 05:24
Chloride 95 mmol/L (98-107) L 05/02/24 05:24
Carbon Dioxide 24 mmol/L (22-30) 05/02/24 05:24
BUN 47 mg/dl (7-17) H 05/02/24 05:24
Creatinine 4.8 mg/dL (0.6-1.0) H* 05/02/24 05:24
eGFR 9.70 05/02/24 05:24
Glucose 217 mg/dl (70-99) H 05/02/24 05:24
Calcium 7.7 mg/dl (8.4-10.2) L 05/02/24 05:24
Pmk-E-Uhkzmbcgbud Pept > 09940 pg/ml 04/30/24 12:38
Albumin 3.1 g/dl (3.5-5.0) L 05/01/24 05:28
Physical Exam
-
Vital Signs:
Vital Signs
Temp Pulse Resp BP Pulse Ox
97.8 F 102 18 114/74 98
05/02/24 07:45 05/02/24 07:45 05/02/24 07:45 05/02/24 07:45 05/02/24 07:45
Respiratory:: Bilateral: Coarse
Lung Excursion:: Normal
Abdomen:: Nontender and Soft
Bowel Sounds:: Normal
Extremity Edema:: +1: Bilateral:
Sanchez Catheter: No
Other Findings::
Tunneled right IJ catheter
--- NOTE | 2024-05-02 11:28 | CM ---
CM reviewed chart. Pt presented for change in mental status from SNF. Discussed pt with Cardiology-ruled in for NSTEMI.
pmhx significant for ESRD on HD via permacath, CHF, COPD, DM, ICH, hemiplegia, CVA, MVR, CAD, Afib, seizures
Spoke with Bonita @ [facility] (), where pt is currently at for SNF with possible LTC transition.
Shashi PAVON [place] insurance- pt admitted 04/29 to [facility]. Skilled days continue to run while she is IP.
No auth required to return at this time.
Functional baseline w/AMB and transfers unclear at time of call to .
2L NC at baseline.
Updated clinical to be sent to facility for review. CM/SW will need to f/u closer to dc regarding pts return.
CM/SW will continue to follow to ensure a safe and timely discharge.
[2024-05-02 11:40] VITALS: BP 106/75
[2024-05-02 11:52] LABS: Glucose - Point of Care 266 mg/dl (70-99)
[2024-05-02] MEDS: NOVOLOG FLEXPEN-LOW RESISTANCE 3 UNITS SC (12:22)
--- NOTE | 2024-05-02 12:45 | W.PN.HOSP.TC ---
Today's Communication/Plan
-
Speak with daughter about goals of care
Hold warfarin
Midodrine before dialysis tomorrow
No plan for cath or other cardiac intervention
Assessment / Plan
Assessment / Plan
#NSTEMI
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
#Pulmonary HTN
#H/O LBBB
-Presented with NSTEMI, troponin peaked at 11.8; poor candidate for LHC
-Received urgent dialysis for volume overload; no heparin drip due to bleeding history
-Was recommended by cardiology to continue with conservative measures
-Currently on beta-jeet and warfarin with INR goal of ~3
-Continue to monitor on telemetry and monitor hemodynamics
-Continue with beta-jeet for GDMT of HFrecEF
-Volume status removal with dialysis sessions
-Will have goals of care discussion with daughter if able to reach her
#New AFL
#H/O Paroxysmal AF
-Elevated [id number] though also significant ICH and GIB history
-Currently on warfarin, carvedilol, amiodarone daily at home
-Uptitrated to amiodarone 200 mg twice daily for new AFL
-Will continue on telemetry and monitor for chemical cardioversion
-Poor candidate for DCCV or ablation
#S/P mechanical MVR
#S/P bioprosthetic AVR
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
-Home regimen includes warfarin, INR goal 3 due to history of bleeding
-INR 4.42 today, holding dose for evening of 05/01 and 05/02
-Avoid vitamin K or other reversal due to mechanical valve
-Trend INR
#Chronic hypoxemic respiratory failure
-Per records, baseline 2 L oxygen via nasal cannula
-Likely secondary to heart failure and chronic volume overload
-No signs of hypercapnia; no history of ILD or other primary lung disease
-Home medications include bronchodilators as needed; no standing inhaler
#ESRD
#Secondary hyperparathyroidism
#Anemia of chronic kidney disease
-Suspect ESRD associated with T1DM history, possibly multifactorial
-Home medications include calcitriol for bone mineral disease
-Started on MANOLO for anemia by nephrology
-Status post urgent dialysis for acute volume overload
-Nephrology consulted to resume HD schedule
-Nephrology started midodrine prior to HD
#T1DM
-Suspect that this is associated with ESRD
-Home regimen includes Lantus 10 units daily; no recent A1c
-Likely well-controlled due to her end-stage renal disease
-Accu-Cheks were added, as well as ISS
-Blood glucose goal 140-180
#Smoldering myeloma
-Unclear if this is still smoldering or has progressed
-Was started on dialysis within the last month or 2, light chain nephropathy (?)
-Should have repeat SPE, UPEP, Light chains as outpatient with oncology
-No evidence of hypercalcemia or bone lesions
#H/O multiple ICH from falls
#H/O seizures
-Multiple falls with ICH while on warfarin for AF and mechanical valve
-Suspect seizures related to previous ICH, parenchymal changes
-Home medications include divalproex nightly
#H/O GIB
-Remains on warfarin due to mechanical valve
#Chronic constipation
-On as needed bowel regimen
#Chronic pain
-Remains on home as needed oxycodone regimen
DVT prophylaxis: Home warfarin, SCDs
Diet: Renal diet
CODE STATUS: Full code, GOC to be had with the daughter
[facility] [place] was able to speak with the patient's daughter Lottie, who can be reached at [phone]. This is the patient's primary contact and POA, reportedly. Number to be added to contact list
Anticipated Discharge: 24 - 48 hours
Subjective/Interval History
-
Date of Service: May 02, 2024
Seen and examined at the bedside. No acute events reported overnight. AFVSS this morning
INR increased up to 4.42, no bleeding reported overnight.
ROS limited due to mental status.
Objective Data
-
Labs:
Laboratory Results
05/02/24
05:24
WBC 9.1
Hgb 8.3 L
Hct 24.3 L
Plt Count 113 L
PT 41.6 H
INR 4.42
Sodium 133 L
Potassium 4.3
Chloride 95 L
Carbon Dioxide 24
BUN 47 H
Creatinine 4.8 H*
Glucose 217 H
Calcium 7.7 L
Vital Signs:
Vital Signs
Temp Pulse Resp BP Pulse Ox
98.1 F 109 16 106/75 99
05/02/24 11:40 05/02/24 11:40 05/02/24 11:40 05/02/24 11:40 05/02/24 11:40
I&O
05/01/24 05/02/24 05/03/24
06:59 06:59 06:59
Intake Total 960 / 960
Balance 960 / 960
Review of Systems
-
History Source: Patient
All other systems: Reviewed and negative
Physical Exam
-
General: Well Developed, Well Nourished, No Apparent Distress and Comfortable
HEENT: Normocephalic, Atraumatic and Moist Mucous Membranes
Respiratory: Rales and Non Labored Respirations; Negative Accessory Resp Muscle Use
Cardiac: S1/S2, Irregular Rhythm, Murmur and Tachycardic; Negative Rub or Gallop
GI: Soft, Nontender, Nondistended and Normal Bowel Sounds
Musculoskeletal: No Clubbing, No Cyanosis and No Edema
Skin: Warm and Dry; Negative Rash
Neuro: AO x 3 and Nonfocal/Grossly Intact
Psych: Agitated
Data Reviewed
-
Labs: Labs Reviewed by me, Discussed with Patient and Discussed with Family
--- NOTE | 2024-05-02 14:35 | W.PN.UPDATE ---
Update Note
Progress Note Update
I spoke with the patient's daughter Lottie and provided her updates regarding her mother's condition. I also spoke with her about goals of care. Chiquita has had multiple hospitalizations this past year, including cardiac arrest secondary to
anaphylaxis, a fall at her facility that resulted in ICH, worsening mental status following that fall. Lottie is a nurse and comprehends medical scenarios well. I spoke with her about the likelihood that Chiquita would be in and out of the hospital
frequently if discharged as currently is. She understood, seemed in agreement that this was not a desirable outcome. I spoke about hospice and palliative care, Lottie agreed to have hospice consulted in order to have conversation with them. She
did not want to change CODE STATUS as of now, she says that she needs to speak with her other siblings (6 family members in total) prior to making this decision. Will continue with full code as of now. Hospice consult placed, will be evaluated in
the morning
Lottie is a nurse who works nights, states it would be best if calls to her work prior to noon. She can be reached at [phone].
[2024-05-02 15:50] VITALS: BP 111/78
[2024-05-02] MEDS: ATIVAN 0.5 MG PO (15:55)
[2024-05-02 17:11] LABS: Glucose - Point of Care 221 mg/dl (70-99)
[2024-05-02] MEDS: NOVOLOG FLEXPEN-LOW RESISTANCE 300 UNITS SC (17:16)
[2024-05-02 19:21] VITALS: BP 127/83
[2024-05-02] MEDS: PEPCID 20 MG PO (20:44)
[2024-05-02 21:49] LABS: Glucose - Point of Care 219 mg/dl (70-99)
[2024-05-02] MEDS: LIPITOR 40 MG PO (22:44)
[2024-05-02] MEDS: DEPAKOTE ER (24 HR RELEASE) 250 MG PO (22:47)
[2024-05-02 23:26] VITALS: BP 111/74
[2024-05-03 03:23] VITALS: BP 118/72
[2024-05-03 06:00] VITALS: BMI 25.2
[2024-05-03 07:37] VITALS: BMI 25.2
[2024-05-03 07:45] VITALS: BP 134/97
[2024-05-03 07:54] LABS: Glucose - Point of Care 273 mg/dl (70-99)
--- NOTE | 2024-05-03 09:38 | CM ---
Reviewed the chart notes. CM consult received for hospice. Referral sent to Hospice via [facility]. Confirmed with [facility] Admissions Liaison, patient is a [employer] Medicaid patient. Recently transferred to [facility] from another facility.
CM continues to be available to patient/family and is monitoring medical plan for needs at discharge.
Plan: Discharge back to [facility] when medically stable.
Call report to: [phone]
Fax report to: [phone]
[2024-05-03] MEDS: ROCALTROL 0.25 MCG PO (09:42)
[2024-05-03] MEDS: NOVOLOG FLEXPEN-LOW RESISTANCE 3 UNITS SC (09:42)
[2024-05-03] MEDS: VITAMIN B1 100 MG PO (09:42)
[2024-05-03] MEDS: ZETIA 10 MG PO (09:42)
[2024-05-03] MEDS: FOLVITE 1 MG PO (09:43)
[2024-05-03] MEDS: PROTONIX 40 MG PO (09:43)
[2024-05-03] MEDS: PACERONE 200 MG PO ×2 (09:43→20:55)
[2024-05-03] MEDS: FEOSOL 325 MG PO (09:44)
[2024-05-03] MEDS: COREG 25 MG PO ×2 (09:44→20:56)
[2024-05-03] MEDS: VITAMIN B-12 1000 MCG PO (09:44)
[2024-05-03] MEDS: LANTUS 0.1 UNITS SC (09:46)
--- NOTE | 2024-05-03 09:56 | HOSPNOTE ---
Referral received and spoke with daughter about hospice and code status. The daughter Lottie will speak with her siblings and call me back in the am with a decision. More information to follow.
--- NOTE | 2024-05-03 11:03 | WOUNDNOTE ---
BUTTOCKS SKIN FOLDS
--- NOTE | 2024-05-03 11:03 | WOUNDNOTE ---
R HEEL WITH FLASH
[2024-05-03 11:04] VITALS: BP 135/89
--- NOTE | 2024-05-03 11:05 | WOUNDNOTE ---
WON RN note: Patient admitted with Elevated Troponin and shortness of breath.
See H&P for complete history. Resides at [facility].
PMH: DM, COPD,NC CHF,HTN RF-DIALYSIS (MWF)
Wound Location and type/assessment: Patient admitted with: Shallow dry stage 2 PI on sacrum, no drainage. B/L inner buttocks with few linear pink areas, suspect MASD vs stage 2 PI. L heel is intact, R heel with evolving DTI vs stage 1 PI, light
purple in color. Scattered raised callus's on both plantar feet. Skin warm and dry faint pedal pulses. R upper thigh with purple bruise and patient screams in pain when R leg elevated, unable to lift on own. L leg with no complaints of pain and able
to elevate on own. Patient poor historian unable to tell me if recent fall at [place].
Appetite: Fair.
Pressure redistribution devices in place: On [facility] care air bed, turning schedule, pillow under calves. Air cushion when sitting. Can add air cushion on pillow under calves if tolerates for increased offloading to R heel.
Plan: Foams changed on sacrum and heels, pillow under calves. Repositioned patient onto L semi side lying position. Recommend Calazime for inner buttocks skin folds close to rectum. Notified Dr. Cruz of excessive pain in R leg, x ray to be
ordered. Will confirm orders with hospitalist and updated nurse Rebeca.
Updated care plan and will follow as needed.
Note to case management of equipment requested for discharge: None.
Recommend follow up at wound care center upon discharge.
[2024-05-03 11:09] LABS: Glucose - Point of Care 244 mg/dl (70-99)
[2024-05-03] MEDS: NOVOLOG FLEXPEN-LOW RESISTANCE 2 UNITS SC (12:54)
[2024-05-03 13:07] LABS: % Basophils 0.1 % (0-2); % Immature Granulocytes 0.5 % (0-0.5); % Lymphocytes 4.2 % (20.5-51.1); % Monocytes 5.3 % (1.7-9.3); % Neutrophils 89.9 % (42.2-75.2); Absolute Immature Granulocytes 0.1 10^3/uL (0-0.05); Absolute Lymphocytes 0.4 10^3/uL (1.2-3.4); Absolute Monocytes 0.5 10^3/uL (0.1-0.6); Absolute Neutrophils 8.8 10^3/uL (1.4-6.5); Hematocrit 24.3 % (37.0-47.0); Hemoglobin 8.1 g/dL (12.0-16.0); Mean Corp Hgb Conc. 33.3 g/dL (33.0-37.0); Mean Corpuscular Volume 93.1 fL (81.0-99.0); Mean Platelet Volume 11.3 fL (7.4-10.4); Nucleated Red Blood Cells % 1.8 %; Platelet Count 86 10^3/uL (130-400); Red Blood Cell Count 2.61 10^6/uL (4.20-5.40); Red Cell Dist. Width 17.3 % (11.5-14.5); White Blood Cell Count 9.8 10^3/uL (4.8-10.8)
[2024-05-03] MEDS: ProAmatine 10 MG PO (13:31)
[2024-05-03 13:33] LABS: Blood Urea Nitrogen 63 mg/dl (7-17); Calcium 7.6 mg/dl (8.4-10.2); Carbon Dioxide 28 mmol/L (22-30); Chloride 93 mmol/L (98-107); Estimated Creatinine Clearance 8 ml/min; Glucose 200 mg/dl (70-99); Potassium 4.5 mmol/L (3.5-5.1); Sodium 133 mmol/L (135-145); eGFR 6.87
--- NOTE | 2024-05-03 13:34 | W.PN.HOSP.TC ---
Today's Communication/Plan
-
USP prognosis guarded
HD per nephrology
INR pending
monitor BP
Assessment / Plan
Assessment / Plan
#NSTEMI
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
#Pulmonary HTN
#H/O LBBB
-Presented with NSTEMI, troponin peaked at 11.8; poor candidate for LHC
-Received urgent dialysis for volume overload; no heparin drip due to bleeding history
-Was recommended by cardiology to continue with conservative measures
-Currently on beta-jeet and warfarin with INR goal of ~3
-Continue to monitor on telemetry and monitor hemodynamics
-Continue with beta-jeet for GDMT of HFrecEF
-Volume status removal with dialysis sessions
-Hospice consulted. Awaiting family decision. In the interim cont with current medical measures.
#New AFL
#H/O Paroxysmal AF
-Elevated [id number] though also significant ICH and GIB history
-Currently on warfarin, carvedilol, amiodarone daily at home
-Uptitrated to amiodarone 200 mg twice daily for new AFL
-Will continue on telemetry and monitor for chemical cardioversion
-Poor candidate for DCCV or ablation
#S/P mechanical MVR
#S/P bioprosthetic AVR
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
-Home regimen includes warfarin, INR goal 3 due to history of bleeding
-INR pending. , holding dose for evening of 05/01 and 05/02
-Avoid vitamin K or other reversal due to mechanical valve
-Trend INR
#Chronic hypoxemic respiratory failure
-Per records, baseline 2 L oxygen via nasal cannula
-Likely secondary to heart failure and chronic volume overload
-No signs of hypercapnia; no history of ILD or other primary lung disease
-Home medications include bronchodilators as needed; no standing inhaler
#ESRD
#Secondary hyperparathyroidism
#Anemia of chronic kidney disease
-Suspect ESRD associated with T1DM history, possibly multifactorial
-Home medications include calcitriol for bone mineral disease
-Started on MANOLO for anemia by nephrology
-Status post urgent dialysis for acute volume overload
-Nephrology consulted to resume HD schedule
-Nephrology started midodrine prior to HD
#T1DM
-Suspect that this is associated with ESRD
-Home regimen includes Lantus 10 units daily; no recent A1c
-Likely well-controlled due to her end-stage renal disease
-Accu-Cheks were added, as well as ISS
-Blood glucose goal 140-180
#Smoldering myeloma
-Unclear if this is still smoldering or has progressed
-Was started on dialysis within the last month or 2, light chain nephropathy (?)
-Should have repeat SPE, UPEP, Light chains as outpatient with oncology
-No evidence of hypercalcemia or bone lesions
#H/O multiple ICH from falls
#H/O seizures
-Multiple falls with ICH while on warfarin for AF and mechanical valve
-Suspect seizures related to previous ICH, parenchymal changes
-Home medications include divalproex nightly
#H/O GIB
-Remains on warfarin due to mechanical valve
#Chronic constipation
-On as needed bowel regimen
#Chronic pain
-Remains on home as needed oxycodone regimen
#R hip pain
-xray negative for R hip fracture
# Sacrum pressure injury stage II POA
#Left heel with DTI vs. Stage I-POA
DVT prophylaxis: Home warfarin, SCDs
Diet: Renal diet
CODE STATUS: Full code,
Anticipated Discharge: > 48 hours
Subjective/Interval History
-
Date of Service: May 03, 2024
Seen and examined at the bedside. No acute events reported overnight
States it is evening time (even though 10:30 am in morning)
no pain
ROS limited due to mental status.
Objective Data
-
Labs:
Laboratory Results
05/03/24 05/03/24 05/03/24
12:45 12:55 13:32
WBC 9.8
Hgb 8.1 L
Hct 24.3 L
Plt Count 86 L D
PT Cancelled Pending
INR Cancelled Pending
Sodium 133 L
Potassium 4.5
Chloride 93 L
Carbon Dioxide 28
BUN 63 H
Creatinine 6.4 H*
Glucose 200 H
Calcium 7.6 L
Vital Signs:
Vital Signs
Temp Pulse Resp BP Pulse Ox
97.7 F 106 16 135/89 100
05/03/24 11:04 05/03/24 11:04 05/03/24 11:04 05/03/24 11:04 05/03/24 11:04
I&O
05/02/24 05/03/24 05/04/24
06:59 06:59 06:59
Intake Total 960 / 960 800 / 800
Balance 960 / 960 800 / 800
Physical Exam
-
General: Well Developed, Well Nourished, No Apparent Distress and Comfortable
HEENT: Normocephalic, Atraumatic and Moist Mucous Membranes
Respiratory: Rales and Non Labored Respirations; Negative Accessory Resp Muscle Use
Cardiac: S1/S2, Irregular Rhythm, Murmur and Tachycardic; Negative Rub or Gallop
GI: Soft, Nontender, Nondistended and Normal Bowel Sounds
Musculoskeletal: No Clubbing, No Cyanosis and No Edema
Skin: Warm and Dry; Negative Rash
Neuro: Awake
Psych: Confused
Data Reviewed
-
Total Time Spent with Patient (in minutes): 55
[2024-05-03 13:59] LABS: INR 3.76; PT 36.8 Sec (11.4-14.6)
[2024-05-03] MEDS: RETACRIT 10000 UNITS IV (15:14)
[2024-05-03 15:50] VITALS: BP 120/83
--- NOTE | 2024-05-03 16:01 | W.PN.NEPH.HD ---
Assessment
-
Total Time Spent with Patient (in minutes): Tolerated 3.5 L ultrafiltration
Progress Note - Hemodialysis
-
Date of Service: May 03, 2024
Duration: 30 minutes and 3 hours
Potassium Bath: 2
Calcium Bath: 2.5
Opti-Dialyzer: 160
Ultrafiltration: Other (3 kg)
Blood Flow: 400
Dialysate Flow: 600
Heparin: None
EPO: 6000
[2024-05-03] MEDS: HEPARIN 4300 UNITS INTRACATH (16:05)
[2024-05-03 17:35] LABS: Glucose - Point of Care 139 mg/dl (70-99)
[2024-05-03] MEDS: NOVOLOG FLEXPEN-LOW RESISTANCE SC (17:45)
[2024-05-03 19:27] VITALS: BP 138/80
[2024-05-03] MEDS: LIPITOR 40 MG PO (20:55)
[2024-05-03] MEDS: DEPAKOTE ER (24 HR RELEASE) 250 MG PO (20:56)
[2024-05-03 22:30] LABS: Glucose - Point of Care 210 mg/dl (70-99)
[2024-05-03 23:49] VITALS: BP 141/94
[2024-05-04 03:31] VITALS: BP 123/81
[2024-05-04 04:52] VITALS: BMI 24.2
[2024-05-04 07:55] VITALS: BP 117/81
[2024-05-04 08:45] LABS: Glucose - Point of Care 191 mg/dl (70-99)
[2024-05-04] MEDS: VITAMIN B1 100 MG PO (10:04)
[2024-05-04] MEDS: PACERONE 200 MG PO ×2 (10:04→21:07)
[2024-05-04] MEDS: FOLVITE 1 MG PO (10:04)
[2024-05-04] MEDS: ROCALTROL 0.25 MCG PO (10:04)
[2024-05-04] MEDS: VITAMIN B-12 1000 MCG PO (10:04)
[2024-05-04] MEDS: FEOSOL 325 MG PO (10:05)
[2024-05-04] MEDS: PROTONIX 40 MG PO (10:05)
[2024-05-04] MEDS: NOVOLOG FLEXPEN-LOW RESISTANCE 1 UNITS SC (10:05)
[2024-05-04] MEDS: COREG 25 MG PO ×2 (10:05→21:07)
[2024-05-04] MEDS: LANTUS 0.1 UNITS SC (10:05)
[2024-05-04] MEDS: ZETIA 10 MG PO (10:05)
[2024-05-04 11:00] VITALS: BP 117/79
--- NOTE | 2024-05-04 11:14 | W.PN.HOSP.TC ---
Today's Communication/Plan
-
bowel regimen
INR pending
Family decision
Prognosis poor
Assessment / Plan
Assessment / Plan
#NSTEMI
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
#Pulmonary HTN
#H/O LBBB
-Presented with NSTEMI, troponin peaked at 11.8; poor candidate for LHC
-Received urgent dialysis for volume overload; no heparin drip due to bleeding history
-Was recommended by cardiology to continue with conservative measures
-Currently on Amiodarone and Coreg and warfarin with INR goal of ~3
-Continue to monitor on telemetry and monitor hemodynamics
-Continue with beta-jeet for GDMT of HFrecEF
-Volume status removal with dialysis sessions
-Hospice consulted. Awaiting family decision. In the interim cont with current medical measures.
#New AFL
#H/O Paroxysmal AF
-Elevated [id number] though also significant ICH and GIB history
-Currently on warfarin, carvedilol, amiodarone daily at home
-Uptitrated to amiodarone 200 mg twice daily for new AFL
-Will continue on telemetry and monitor for chemical cardioversion
-Poor candidate for DCCV or ablation
#S/P mechanical MVR
#S/P bioprosthetic AVR
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
-Home regimen includes warfarin, INR goal 3 due to history of bleeding
-INR pending for today. , holding dose for evening of 05/01 and 05/02 and 05/03
-Avoid vitamin K or other reversal due to mechanical valve
-Trend INR
#Chronic hypoxemic respiratory failure
-Per records, baseline 2 L oxygen via nasal cannula
-Likely secondary to heart failure and chronic volume overload
-No signs of hypercapnia; no history of ILD or other primary lung disease
-Home medications include bronchodilators as needed; no standing inhaler
#ESRD
#Secondary hyperparathyroidism
#Anemia of chronic kidney disease
-Suspect ESRD associated with T1DM history, possibly multifactorial
-Home medications include calcitriol for bone mineral disease
-Started on MANOLO for anemia by nephrology
-Status post urgent dialysis for acute volume overload
-Nephrology consulted to resume HD schedule
-Nephrology started midodrine prior to HD
#T1DM
-Suspect that this is associated with ESRD
-Home regimen includes Lantus 10 units daily; no recent A1c
-Likely well-controlled due to her end-stage renal disease
-Accu-Cheks were added, as well as ISS
-Blood glucose goal 140-180
#Smoldering myeloma
-Unclear if this is still smoldering or has progressed
-Was started on dialysis within the last month or 2, light chain nephropathy (?)
-Should have repeat SPE, UPEP, Light chains as outpatient with oncology
-No evidence of hypercalcemia or bone lesions
#H/O multiple ICH from falls
#H/O seizures
-Multiple falls with ICH while on warfarin for AF and mechanical valve
-Suspect seizures related to previous ICH, parenchymal changes
-Home medications include divalproex nightly
#H/O GIB
-Remains on warfarin due to mechanical valve
#Chronic constipation
-On as needed bowel regimen
#Chronic pain
-Remains on home as needed oxycodone regimen
#R hip pain
-xray negative for R hip fracture
# Sacrum pressure injury stage II POA
#Left heel with DTI vs. Stage I-POA
DVT prophylaxis: Home warfarin, SCDs
Diet: Renal diet
CODE STATUS: Full code,
Prognosis poor. Await family decision for hospice. HD per nephro.
Anticipated Discharge: Within 24 hours
Subjective/Interval History
-
Date of Service: May 04, 2024
watching TV
Underwent HD yesterday
wants to go home
Objective Data
-
Labs:
Laboratory Results
05/04/24
11:00
PT Pending
INR Pending
Vital Signs:
Vital Signs
Temp Pulse Resp BP Pulse Ox
97.6 F 121 17 117/81 92
05/04/24 07:55 05/04/24 10:05 05/04/24 07:55 05/04/24 10:05 05/04/24 11:00
I&O
05/03/24 05/04/24 05/05/24
06:59 06:59 06:59
Intake Total 800 / 800 680 / 680
Balance 800 / 800 680 / 680
Physical Exam
-
General: Well Developed, Well Nourished, No Apparent Distress and Comfortable
HEENT: Normocephalic, Atraumatic and Moist Mucous Membranes
Respiratory: Rales and Non Labored Respirations; Negative Accessory Resp Muscle Use
Cardiac: S1/S2, Murmur and Tachycardic; Negative Rub or Gallop
GI: Soft, Nontender, Nondistended and Normal Bowel Sounds
Musculoskeletal: No Clubbing, No Cyanosis and No Edema
Skin: Warm and Dry; Negative Rash
Neuro: Awake
Psych: Confused
Data Reviewed
-
Total Time Spent with Patient (in minutes): 55
--- NOTE | 2024-05-04 11:21 | HOSPNOTE ---
Called and spoke to patients daughter Lottie regarding hospice. She states that she has spoken to her siblings and they do not wish for hospice services at this time. CM and Attending updated. Lottie also stated that she plans to see patient
around 3 pm today as well.
[2024-05-04 11:32] LABS: INR 3.47; PT 34.7 Sec (11.4-14.6)
[2024-05-04] MEDS: MIRALAX 17 GRAMS PO (11:37)
[2024-05-04] MEDS: DULCOLAX 5 MG PO (11:37)
--- NOTE | 2024-05-04 11:42 | CM ---
Reviewed the chart notes. CM continues to be available to patient/family and is monitoring medical plan for needs at discharge.
Plan: Discharge back to [facility] when medically stable.
Call report to: [phone]
Fax report to: [phone]
Medical necessity and transport forms on chart.
[2024-05-04 11:59] LABS: Glucose - Point of Care 278 mg/dl (70-99)
[2024-05-04] MEDS: NOVOLOG FLEXPEN-LOW RESISTANCE 3 UNITS SC (12:36)
[2024-05-04 15:15] VITALS: BP 110/71
[2024-05-04 16:49] LABS: Glucose - Point of Care 335 mg/dl (70-99)
[2024-05-04] MEDS: NOVOLOG FLEXPEN-LOW RESISTANCE 4 UNITS SC (16:51)
--- NOTE | 2024-05-04 16:58 | W.PN.NEPH.PH ---
Today's Communication / Plan
-
Dialysis tomorrow
Assessment/Plan
-
Impression:
ESRD MWF
Metabolic acidosis
Hyperkalemia
DM
Hypoxia with pulmonary edema and possible pneumonia
Diabetes (insulin requiring)
Secondary parathyroidism
A-fib
History of recent intracranial hemorrhage
Mechanical mitral heart valve replacement
Positive troponin/ischemic cardiomyopathy
Coronary artery disease with history of
Anemia
History of seizure
History of CVA
History of smoldering myeloma
History of GI bleed
Right IJ dialysis cath
Plan:
-Dialysis tomorrow orders provided
-Respiratory status now more stabilized, patient feels much better
-Will avoid heparin product given recent intracranial hemorrhage
-Maintain calcitriol with secondary hyperparathyroid
-MANOLO will be provided for anemia
-Unfortunately the patient has severe comorbidities with many ongoing clinical issues which makes maintaining the patient successfully as an outpatient dialysis patient very difficult. I am unsure if she will be clinically viable outside of the
hospital
-I will provide midodrine on dialysis but her ongoing hypotension will make effective ultrafiltration in the outpatient setting very difficult
No acute need for dialysis today next treatment tomorrow
-
-
Date of Service: May 04, 2024
CC / HPI / ROS
-
Chief Complaint:
ESRD
History of Present Illness:
ESRD Friday
Hemodynamically labile
Review of Systems:
No fevers
Less short of breath but still requires oxygen
Labs
-
Labs:
WBC 9.8 10^3/uL (4.8-10.8) 05/03/24 12:45
RBC 2.61 10^6/uL (4.20-5.40) L 05/03/24 12:45
Hgb 8.1 g/dL (12.0-16.0) L 05/03/24 12:45
Hct 24.3 % (37.0-47.0) L 05/03/24 12:45
Plt Count 86 10^3/uL (130-400) L D 05/03/24 12:45
Sodium 133 mmol/L (135-145) L 05/03/24 12:45
Potassium 4.5 mmol/L (3.5-5.1) 05/03/24 12:45
Chloride 93 mmol/L (98-107) L 05/03/24 12:45
Carbon Dioxide 28 mmol/L (22-30) 05/03/24 12:45
BUN 63 mg/dl (7-17) H 05/03/24 12:45
Creatinine 6.4 mg/dL (0.6-1.0) H* 05/03/24 12:45
eGFR 6.87 05/03/24 12:45
Glucose 200 mg/dl (70-99) H 05/03/24 12:45
Calcium 7.6 mg/dl (8.4-10.2) L 05/03/24 12:45
Fmg-R-Eqjvbhtluaa Pept > 55962 pg/ml 04/30/24 12:38
Albumin 3.1 g/dl (3.5-5.0) L 05/01/24 05:28
Physical Exam
-
Vital Signs:
Vital Signs
Temp Pulse Resp BP Pulse Ox
97.8 F 105 18 110/71 93
05/04/24 15:15 05/04/24 15:15 05/04/24 15:15 05/04/24 15:15 05/04/24 15:15
Respiratory:: Bilateral: Coarse
Lung Excursion:: Normal
Abdomen:: Nontender and Soft
Bowel Sounds:: Normal
Extremity Edema:: +1: Bilateral:
Sanchez Catheter: No
Other Findings::
Tunneled right IJ catheter
[2024-05-04 19:23] VITALS: BP 111/63
[2024-05-04] MEDS: PEPCID 20 MG PO (21:08)
[2024-05-04] MEDS: DEPAKOTE ER (24 HR RELEASE) 250 MG PO (21:08)
[2024-05-04] MEDS: LIPITOR 40 MG PO (21:08)
[2024-05-04 21:22] LABS: Glucose - Point of Care 300 mg/dl (70-99)
[2024-05-04 23:24] VITALS: BP 129/87
--- NOTE | 2024-05-05 00:41 | PTCARENOTE ---
2129 - pt blood sugar 300. Notified PARAS Pringle. No new orders at this time. Pt resting comfortably in bed, safe environment maintained.
[2024-05-05 03:15] VITALS: BP 128/86
[2024-05-05 06:00] VITALS: BMI 24.2
[2024-05-05] MEDS: ROCALTROL 0.25 MCG PO (07:37)
[2024-05-05] MEDS: FOLVITE 1 MG PO (07:37)
[2024-05-05] MEDS: PACERONE 200 MG PO ×2 (07:37→19:59)
[2024-05-05] MEDS: FEOSOL 325 MG PO (07:37)
[2024-05-05] MEDS: ZETIA 10 MG PO (07:37)
[2024-05-05] MEDS: VITAMIN B1 100 MG PO (07:37)
[2024-05-05] MEDS: COREG 25 MG PO ×2 (07:37→19:59)
[2024-05-05] MEDS: PROTONIX 40 MG PO (07:37)
[2024-05-05 07:38] LABS: Glucose - Point of Care 220 mg/dl (70-99)
[2024-05-05] MEDS: VITAMIN B-12 1000 MCG PO (07:38)
[2024-05-05] MEDS: NOVOLOG FLEXPEN-LOW RESISTANCE 2 UNITS SC ×2 (07:38→12:31)
[2024-05-05] MEDS: LANTUS 0.1 UNITS SC (07:38)
[2024-05-05 07:48] VITALS: BP 132/84
[2024-05-05] MEDS: ROXICODONE 15 MG PO (08:15)
[2024-05-05 08:31] LABS: INR 3.48; PT 35.2 Sec (11.4-14.6)
[2024-05-05 08:33] LABS: Blood Urea Nitrogen 53 mg/dl (7-17); Calcium 8.1 mg/dl (8.4-10.2); Carbon Dioxide 25 mmol/L (22-30); Chloride 92 mmol/L (98-107); Estimated Creatinine Clearance 9 ml/min; Glucose 194 mg/dl (70-99); Potassium 4.3 mmol/L (3.5-5.1); Sodium 133 mmol/L (135-145); eGFR 8.06
--- NOTE | 2024-05-05 11:21 | W.PN.HOSP.TC ---
Addendum entered and electronically signed by Claus Cruz MD 05/05/24 13:11:
Discussed with patient daughter Lottie over the phone in detail. Daughter understand that patient has poor prognosis with heart failure, pulmonary hypertension, NSTEMI, ESRD on hemodialysis with hypotension at times, myeloma, falls and recent ICH
and rectus sheath hematoma. Family refused hospice and wants to continue with aggressive measures and full code. Plan will be for dialysis today. Monitor blood pressure overnight. If stable disposition to [facility] tomorrow.
Addendum entered and electronically signed by Claus Cruz MD 05/05/24 13:10:
General: Well Developed, Well Nourished, No Apparent Distress and Comfortable,
HEENT: Normocephalic, Atraumatic and Moist Mucous Membranes
Respiratory: Rales and Non Labored Respirations; Negative Accessory Resp Muscle Use
Cardiac: S1/S2, Murmur, Negative Rub or Gallop
GI: Soft, Nontender, Nondistended and Normal Bowel Sounds
Musculoskeletal: No Clubbing, No Cyanosis and No Edema
Skin: Warm and Dry; Negative Rash
Neuro: Awake
Psych: Confused
Original Note:
Today's Communication/Plan
-
HD today
Monitor blood pressure
Trend INR
Await further records
Start disposition planning
Assessment / Plan
Assessment / Plan
#NSTEMI
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
#Pulmonary HTN
#H/O LBBB
-Presented with NSTEMI, troponin peaked at 11.8; poor candidate for LHC
-Received urgent dialysis for volume overload; no heparin drip due to bleeding history
-Was recommended by cardiology to continue with conservative measures
-Currently on Amiodarone and Coreg and warfarin with INR goal of ~3
-Continue to monitor on telemetry and monitor hemodynamics
-Continue with beta-jeet for GDMT of HFrecEF
-Volume status removal with dialysis sessions
-Refused hospice.
#New AFL
#H/O Paroxysmal AF
-Elevated [id number] though also significant ICH and GIB history
-Currently on warfarin, carvedilol, amiodarone daily at home
-Uptitrated to amiodarone 200 mg twice daily for new AFL
-Will continue on telemetry and monitor for chemical cardioversion
-Poor candidate for DCCV or ablation
#S/P mechanical MVR
#S/P bioprosthetic AVR
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
-Home regimen includes warfarin, INR goal 3 due to history of bleeding
-INR pending for today. , holding dose for evening of 05/01 and 05/02 and 05/03
-Avoid vitamin K or other reversal due to mechanical valve
-Trend INR
#Chronic hypoxemic respiratory failure
-Per records, baseline 2 L oxygen via nasal cannula
-Likely secondary to heart failure and chronic volume overload
-No signs of hypercapnia; no history of ILD or other primary lung disease
-Home medications include bronchodilators as needed; no standing inhaler
#ESRD
#Secondary hyperparathyroidism
#Anemia of chronic kidney disease
-Suspect ESRD associated with T1DM history, possibly multifactorial
-Home medications include calcitriol for bone mineral disease
-Started on MANOLO for anemia by nephrology
-Status post urgent dialysis for acute volume overload
-Nephrology consulted to resume HD schedule
-Nephrology started midodrine prior to HD. Monitor blood pressure with HD. Ultrafiltration difficult per nephrology at times due to hypotension..
# Diabetes mellitus
-Suspect that this is associated with ESRD
-Home regimen includes Lantus 10 units daily; and start 3 units Premeal.
-Accu-Cheks were added, as well as ISS
#Smoldering myeloma
-Unclear if this is still smoldering or has progressed
-Was started on dialysis within the last month or 2, light chain nephropathy (?)
-Should have repeat SPE, UPEP, Light chains as outpatient with oncology
-No evidence of hypercalcemia or bone lesions
#H/O multiple ICH from falls
#H/O seizures
# History of recent rectus sheath hematoma from mechanical fall
-Multiple falls with ICH while on warfarin for AF and mechanical valve
-Suspect seizures related to previous ICH, parenchymal changes
-Home medications include divalproex nightly
-Incomplete records from [facility] noted. Patient also had rectus sheath hematoma in addition to ICH. Plan was to hold Coumadin until evaluated by neurosurgery as outpatient. Patient INR continues remains at 3.48. Continue to hold Coumadin. Awaiting
further records from [facility].
#H/O GIB
-Remains on warfarin due to mechanical valve
#Chronic constipation
-On as needed bowel regimen
-Having BM.
#Chronic pain
-Remains on home as needed oxycodone regimen
#R hip pain
-xray negative for R hip fracture
# Sacrum pressure injury stage II POA
#Left heel with DTI vs. Stage I-POA
DVT prophylaxis: Home warfarin, SCDs/elevated INR
Diet: Renal diet
CODE STATUS: Full code,
Prognosis poor. Family does not want hospice. Called daughter to update no response. Left voicemail.
Anticipated Discharge: Within 24 hours
Subjective/Interval History
-
Date of Service: May 05, 2024
Patient watching TV
No complaints
Had a huge bowel movement yesterday
Objective Data
-
Labs:
Laboratory Results
05/05/24 05/05/24
07:52 07:53
PT 35.2 H
INR 3.48
Sodium 133 L
Potassium 4.3
Chloride 92 L
Carbon Dioxide 25
BUN 53 H
Creatinine 5.6 H*
Glucose 194 H
Calcium 8.1 L
Vital Signs:
Vital Signs
Temp Pulse Resp BP Pulse Ox
97.8 F 105 16 132/84 99
05/05/24 08:46 05/05/24 07:48 05/05/24 07:48 05/05/24 07:48 05/05/24 09:13
I&O
05/04/24 05/05/24 05/06/24
06:59 06:59 06:59
Intake Total 680 / 680 1120 / 1120
Balance 680 / 680 1120 / 1120
Data Reviewed
-
Total Time Spent with Patient (in minutes): 55
[2024-05-05 11:23] VITALS: BP 117/76
--- NOTE | 2024-05-05 11:49 | CM ---
Reviewed the chart notes. Voice message left for the patient's daughter Lottie regarding discharge back to [facility] today and IMM. CM continues to be available to patient/family and is monitoring medical plan for needs at discharge.
Plan: Discharge back to [facility] when medically stable.
Call report to: [phone]
Fax report to: [phone]
Medical necessity and transport forms on chart.
--- NOTE | 2024-05-05 12:00 | PTCARENOTE ---
Patient received PRN 15 mg PO oxycodone this AM per patient request for B/L leg pain rated 10/10; med in home med list, patient states she takes medication as needed at nursing facility. Upon reassessment patient sleeping, wakes with verbal stimuli
but drowsy, answers yes/no questions appropriately before falling back asleep. Vitals stable, patient to receive HD at noon. made aware, PRN oxycodone dose decreased to 5 mg.
[2024-05-05 12:03] LABS: Glucose - Point of Care 201 mg/dl (70-99)
[2024-05-05] MEDS: NOVOLOG FLEXPEN SC ×2 (12:07→16:48)
--- NOTE | 2024-05-05 13:18 | W.PN.NEPH.HD ---
Assessment
-
Patient seen on dialysis
Systolic blood pressure down to 114 with reduction of ultrafiltration to 1 kg
Weights down 3 kg since admission
Progress Note - Hemodialysis
-
Date of Service: May 05, 2024
Duration: 30 minutes and 3 hours
Potassium Bath: 2
Calcium Bath: 2.5
Opti-Dialyzer: 160
Ultrafiltration: Other (1 kg)
Blood Flow: 400
Dialysate Flow: 600
Heparin: None
EPO: 10,000
[2024-05-05] MEDS: RETACRIT 10000 UNITS IV (13:28)
[2024-05-05 15:03] LABS: Hematocrit 26.2 % (37.0-47.0); Hemoglobin 8.4 g/dL (12.0-16.0)
[2024-05-05 16:00] VITALS: BP 108/75
[2024-05-05 16:36] LABS: Glucose - Point of Care 126 mg/dl (70-99)
[2024-05-05] MEDS: NOVOLOG FLEXPEN-LOW RESISTANCE SC (16:36)
--- NOTE | 2024-05-05 16:52 | PTCARENOTE ---
Patient drowsy after HD session, wakes to verbal stimuli before falling back asleep. 1.5 kilo off during HD session, vitals stable throughout. Blood sugar for dinner 126, patient sleeping and declining to eat at this time. This RN communicated above
to MD, 3 units scheduled insulin held d/t patient not eating.
[2024-05-05 19:40] VITALS: BP 134/72
[2024-05-05] MEDS: DEPAKOTE ER (24 HR RELEASE) 250 MG PO (20:08)
[2024-05-05] MEDS: LIPITOR 40 MG PO (20:09)
[2024-05-05 21:28] LABS: Glucose - Point of Care 180 mg/dl (70-99)
[2024-05-05 23:41] VITALS: BP 117/73
[2024-05-06 04:50] VITALS: BP 130/77
[2024-05-06 06:00] VITALS: BMI 24.1
[2024-05-06 07:28] LABS: Glucose - Point of Care 176 mg/dl (70-99)
[2024-05-06] MEDS: NOVOLOG FLEXPEN 3 UNITS SC (08:05)
[2024-05-06] MEDS: NOVOLOG FLEXPEN-LOW RESISTANCE 1 UNITS SC (08:05)
[2024-05-06] MEDS: ZETIA 10 MG PO (08:06)
[2024-05-06] MEDS: VITAMIN B-12 1000 MCG PO (08:06)
[2024-05-06] MEDS: FEOSOL 325 MG PO (08:06)
[2024-05-06] MEDS: VITAMIN B1 100 MG PO (08:06)
[2024-05-06] MEDS: ROCALTROL 0.25 MCG PO (08:06)
[2024-05-06] MEDS: PACERONE 200 MG PO (08:06)
[2024-05-06] MEDS: LANTUS 0.1 UNITS SC (08:06)
[2024-05-06] MEDS: PROTONIX 40 MG PO (08:07)
[2024-05-06] MEDS: COREG 25 MG PO (08:07)
[2024-05-06] MEDS: FOLVITE 1 MG PO (08:07)
[2024-05-06 08:11] LABS: INR 2.95; PT 31.1 Sec (11.4-14.6)
[2024-05-06 08:29] VITALS: BP 122/79
--- NOTE | 2024-05-06 11:08 | W.PN.HOSP.TC ---
Today's Communication/Plan
-
Dc to [facility]
prognosis poor
f/u at neurosurgery
Assessment / Plan
Assessment / Plan
#NSTEMI
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
#Pulmonary HTN
#H/O LBBB
-Presented with NSTEMI, troponin peaked at 11.8; poor candidate for LHC
-Received urgent dialysis for volume overload; no heparin drip due to bleeding history
-Was recommended by cardiology to continue with conservative measures
-Currently on Amiodarone and Coreg and warfarin with INR goal of ~3
-Continue to monitor on telemetry and monitor hemodynamics
-Continue with beta-jeet for GDMT of HFrecEF
-Volume status removal with dialysis sessions
-Refused hospice.
#New AFL
#H/O Paroxysmal AF
-Elevated [id number] though also significant ICH and GIB history
-Currently on warfarin, carvedilol, amiodarone daily at home
-Uptitrated to amiodarone 200 mg twice daily for new AFL
-Will continue on telemetry and monitor for chemical cardioversion
-Poor candidate for DCCV or ablation
#S/P mechanical MVR
#S/P bioprosthetic AVR
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
-Home regimen includes warfarin, INR goal 3 due to history of bleeding
-INR pending for today. , holding dose for evening of 05/01 and 05/02 and 05/03
-Avoid vitamin K or other reversal due to mechanical valve
-Trend INR
#Chronic hypoxemic respiratory failure
-Per records, baseline 2 L oxygen via nasal cannula
-Likely secondary to heart failure and chronic volume overload
-No signs of hypercapnia; no history of ILD or other primary lung disease
-Home medications include bronchodilators as needed; no standing inhaler
#ESRD
#Secondary hyperparathyroidism
#Anemia of chronic kidney disease
-Suspect ESRD associated with T1DM history, possibly multifactorial
-Home medications include calcitriol for bone mineral disease
-Started on MANOLO for anemia by nephrology
-Status post urgent dialysis for acute volume overload
-Nephrology consulted to resume HD schedule
-Nephrology started midodrine prior to HD. Monitor blood pressure with HD. Ultrafiltration difficult per nephrology at times due to hypotension..
# Diabetes mellitus
-Suspect that this is associated with ESRD
-Home regimen includes Lantus 10 units daily; and start 3 units Premeal.
-Accu-Cheks were added, as well as ISS
#Smoldering myeloma
-Unclear if this is still smoldering or has progressed
-Was started on dialysis within the last month or 2, light chain nephropathy (?)
-Should have repeat SPE, UPEP, Light chains as outpatient with oncology
-No evidence of hypercalcemia or bone lesions
#H/O multiple ICH from falls
#H/O seizures
# History of recent rectus sheath hematoma from mechanical fall
-Multiple falls with ICH while on warfarin for AF and mechanical valve
-Suspect seizures related to previous ICH, parenchymal changes
-Home medications include divalproex nightly
-Incomplete records from [facility] noted. Patient also had rectus sheath hematoma in addition to ICH. Plan was to hold Coumadin until evaluated by neurosurgery as outpatient. Patient INR continues remains at 3 Continue to hold Coumadin. Awaiting
further records from [facility] requested days ago but never received. Per the records which are scanned into system it did mention to hold Coumadin until repeat head CT is reviewed by neurosurgery. This was relayed to patient daughter who verbalized
understanding.
#H/O GIB
-Remains on warfarin due to mechanical valve
#Chronic constipation
-On as needed bowel regimen
-Having BM.
#Chronic pain
#toxic metabolic encephalopathy
-Patient was extremely lethargic after receiving oxycodone. Will discontinue further Oxy. Patient is not complaining of active pain. Continue with Tylenol as needed. In the setting of multiple falls and seizures and ICH avoid opiates if possible.
#R hip pain
-xray negative for R hip fracture
# Sacrum pressure injury stage II POA
#Left heel with DTI vs. Stage I-POA
DVT prophylaxis: Home warfarin, SCDs/elevated INR
Diet: Renal diet
CODE STATUS: Full code,
Prognosis poor. Family does not want hospice.
Discussed with patient daughter Lottie on 05/05/2024. Daughter understand Coumadin will need to be held until is cleared by neurosurgery. Daughter stated [facility] wanted patient to go to [place] as all her records at that particular
hospital however with the acuity patient was transferred here. Daughter verbalized understanding for discharge back to [facility].
More than 30 minutes spent in discharge including
Final examination of the patient
Summarizing hospital stay
Instructions for continuing care to all relevant caregivers
Preparation of discharge records, prescriptions, and referral forms
Total time spent (in minutes): 58
Anticipated Discharge: Today
Subjective/Interval History
-
Date of Service: May 06, 2024
Awake and wants to go home
BP stable
no pain
Objective Data
-
Labs:
Laboratory Results
05/06/24
07:31
PT 31.1 H
INR 2.95
Vital Signs:
Vital Signs
Temp Pulse Resp BP Pulse Ox
98.2 F 110 16 122/79 98
05/05/24 23:41 05/06/24 08:06 05/06/24 04:50 05/06/24 08:07 05/06/24 03:30
I&O
05/05/24 05/06/24 05/07/24
06:59 06:59 06:59
Intake Total 1120 / 1120 600 / 600
Balance 1120 / 1120 600 / 600
[2024-05-06 11:15] VITALS: BP 118/81
--- NOTE | 2024-05-06 11:24 | W.DCSUMMARY ---
Discharge Summary
Discharge Data
Date of Admission: 04/30/24
Date of Discharge: 05/06/24
-
Pending Results: No
Hospital Course
64-year-old female extensive past medical history of chronic HFrEF, left bundle branch block, atrial fibrillation, mechanical mitral valve bioprosthetic aortic valve, chronic hypoxic respiratory failure, ESRD on hemodialysis, chronic coagulopathy
with Coumadin, multiple falls, history of recent ICH, rectus sheath hematoma, diabetes mellitus, smoldering myeloma, history of GI bleed, chronic constipation, chronic pain, sacrum pressure injury, left heel deep pressure injury, cognitive
impairment, history of seizures who is presenting from group home with complaints of shortness of breath. Patient was found to be in acute heart failure exacerbation with elevated troponin. Per cardiology patient is not a candidate for cardiac
catheterization. Patient underwent hemodialysis with volume removal. However due to patient soft blood pressure at times ultrafiltration was significantly difficult. Patient was also found to be atrial fibrillation rapid ventricular response and
was started on amiodarone per cardiology. Patient was significantly poor candidate for cardioversion and/or ablation. Patient was also found to have supratherapeutic INR. Looking through the records it seems plan was to hold Coumadin until
patient is evaluated by neurosurgery as outpatient. Patient INR remains supratherapeutic until day of discharge. Patient underwent regular scheduled hemodialysis with intermittent dose of midodrine predialysis. Patient had episode of severe
lethargy post oxycodone as a result it was discontinued. Hospice was recommended to patient daughter and family refused. Discussion was held with patient daughter patient poor prognosis due to multiple medical comorbidities and daughter verbalized
understanding however want to continue with aggressive medical measures. Patient blood pressure was stable. Patient was tolerating diet. Patient be discharged back to group home with recommendation to follow-up with neurosurgery and hold
discussion when safe to restart Coumadin. It was also relayed to daughter for patient to have follow-up with neurosurgery.
Discharge Plan
-
Patient Disposition: Shelter/SNF
Discharge Diagnosis/Procedures: NSTEMI
Acute on chronic heart failure exacerbation
Pulmonary hypertension
Atrial fibrillation with rapid ventricular response
Toxic metabolic encephalopathy
Supratherapeutic INR
s/p hemodialysis
Condition: Fair
Diet: 2 Gram Sodium, Diabetic, Carb Controlled and Restrict fluids to 48 oz
Additional Diets: 2g potassium diet
Activity: With assistance and As tolerated
Driving Restrictions: No driving
Blood Work: Should have repeat SPE, UPEP, Light chains as outpatient with oncology
Activity Restrictions/Additional Instructions:
Do not restart Coumadin until cleared by neurosurgery with repeat head CT scan. Make appointment with neurosurgery in less than a week.
Wound Care Instructions
Sacrum R heel: Clean with soap and water, skin prep and foam change q 3 days and prn soilage
Recommend Calazime for inner buttocks skin folds close to rectum.
Turning schedule
pillows under calves
air chair cushion-can take upon discharge.
Instructions: *PCP/Other Evaluation Engineer Heart Failure Instructions
Referrals:
Damian Daniel MD [Family Provider] - in less than 1 week
Prescriptions:
New
amiodarone 200 mg Tablet
See Rx Instructions .ROUTE .COMPLEX Qty: 60 0RF
Rx Instructions:
Take amiodarone 200 mg p.o. twice daily for additional 10 days then 200 mg daily
insulin aspart U-100 100 unit/mL (3 mL) Insulin Pen
3 unit SC AC 30 Days Qty: 2.7 0RF
Continued
atorvastatin [Lipitor] 40 mg Tablet
40 mg PO HS
carvedilol [Coreg] 25 mg Tablet
25 mg PO BID
acetaminophen [Tylenol] 325 mg Tablet
650 mg PO Q4HPRN PRN (Reason: mild pain)
ipratropium-albuterol 0.5 mg-3 mg(2.5 mg base)/3 mL Solution For Nebulization
3 ml INHALATION R Q6HPRN PRN (Reason: sob)
polyethylene glycol 3350 [Miralax] 17 gram Powder In Packet
17 g PO DAILYPRN PRN (Reason: constipation)
cyanocobalamin (vitamin B-12) 1,000 mcg Tablet
1,000 mcg PO DAILY
thiamine HCl (vitamin B1) 100 mg Tablet
100 mg PO DAILY
famotidine [Pepcid] 20 mg Tablet
20 mg PO DAILY
magnesium hydroxide [Milk of Magnesia] 400 mg/5 mL Suspension
2,400 mg PO HSPRN PRN (Reason: constipation)
bisacodyl [Dulcolax (bisacodyl)] 10 mg Suppository
10 mg [place] DAILYPRN PRN (Reason: constipaiton)
pantoprazole [Protonix] 40 mg Tablet,Delayed Release (Dr/Ec)
40 mg PO DAILY
ferrous sulfate 325 mg (65 mg iron) Tablet
325 mg PO DAILY
vancomycin 500 mg Recon Soln
500 mg PO .THREE TIMES A WEEK
folic acid 1 mg Tablet
1 mg PO DAILY
bisacodyl [Dulcolax (bisacodyl)] 5 mg Tablet,Delayed Release (Dr/Ec)
5 mg PO [id number] PRN (Reason: constipation)
albuterol sulfate 90 mcg/actuation Hfa Aerosol Inhaler
2 puff INHALATION R Q8HPRN PRN (Reason: sob)
ondansetron 4 mg Tablet,Disintegrating
4 mg PO Q6HPRN PRN (Reason: nausea)
calcitriol 0.25 mcg Capsule
0.25 mcg PO DAILY
ezetimibe [Zetia] 10 mg Tablet
10 mg PO DAILY
divalproex 250 mg Tablet Extended Release 24 Hr
250 mg PO HS
melatonin 1 mg Tablet
1 mg PO HSPRN PRN (Reason: sleep)
insulin glargine [Lantus Solostar U-100 Insulin] 100 unit/mL (3 mL) Insulin Pen
10 unit SC DAILY
Held
warfarin 7.5 mg Tablet
0 mg PO UD
Hold Instructions: Resume on 05/17/24. Hold Coumadin until cleared by neurosurgery to be restarted.
Discontinued
amiodarone 200 mg Tablet
200 mg PO DAILY
oxycodone 15 mg Tablet
15 mg PO Q6HPRN PRN (Reason: severe pain)
lorazepam 0.5 mg Tablet
0.5 mg PO TIDPRN PRN (Reason: anxiety)
Discharge Orders:
Discharge Patient (As Directed); Ordered 05/06/24
Ordered By: Claus Cruz
Discharge Date and Time
Print Language: SCOTTISH
--- NOTE | 2024-05-06 11:31 | CM ---
Addendum entered by Tyesha Sutherland RN 05/06/24 12:00:
CM spoke with the patient's daughter via telephone. Updated on discharge plans.
Original Note:
Plan: Discharge back to [facility] when medically stable.
Call report to: [phone]
Fax report to: [phone]
Medical necessity and transport forms on chart.
[2024-05-06 12:17] LABS: Glucose - Point of Care 286 mg/dl (70-99)
[2024-05-06] MEDS: NOVOLOG FLEXPEN-LOW RESISTANCE 3 UNITS SC (12:46)
[2024-05-06] MEDS: NOVOLOG FLEXPEN SC (12:46)
--- NOTE | 2024-05-06 12:55 | PTCARENOTE ---
pt discharged to [facility]. IV access discontinued. pt sent with all belongings within the room. pts daughter is aware of her mother going back to [facility] this afternoon
== END 2024-05-06 13:31 | DRG 280 ==
LOC: 2 NORTH 14:46
PROVIDERS: Internal Medicine; Internal Medicine Nephrology; Physician Assistant; ADMITTING PHYSICIAN Hospitalist; ATTENDING PHYSICIAN Hospitalist; CONSULT PHYSICIAN Internal Medicine Cardiovascular Disease; EMERGENCY PHYSICIAN Emergency Medicine; FAMILY PHYSICIAN Family Medicine; OTHER PHYSICIAN Specialist
PROC: 5A1D70Z Performance of Urinary Filtration, Intermittent, Less than 6 Hours Per Day (ICD-10-PCS; 2024-04-30)
DX: I21.4 Non-ST elevation (NSTEMI) myocardial infarction (principal); G92.8 Other toxic encephalopathy; I50.43 Acute on chronic combined systolic (congestive) and diastolic (congestive) heart failure; N18.6 End stage renal disease; J96.11 Chronic respiratory failure with hypoxia; I13.2 Hypertensive heart and chronic kidney disease with heart failure and with stage 5 chronic kidney disease, or end stage renal disease; E87.20 Acidosis, unspecified; N25.81 Secondary hyperparathyroidism of renal origin; E87.1 Hypo-osmolality and hyponatremia; I27.20 Pulmonary hypertension, unspecified; I48.0 Paroxysmal atrial fibrillation; R79.1 Abnormal coagulation profile; Z79.899 Other long term (current) drug therapy; Z79.4 Long term (current) use of insulin; E10.22 Type 1 diabetes mellitus with diabetic chronic kidney disease; Z95.3 Presence of xenogenic heart valve; Z99.2 Dependence on renal dialysis; Z86.73 Personal history of transient ischemic attack (TIA), and cerebral infarction without residual deficits; Z79.891 Long term (current) use of opiate analgesic; G89.29 Other chronic pain; D47.2 Monoclonal gammopathy; E78.5 Hyperlipidemia, unspecified; D64.9 Anemia, unspecified; R56.9 Unspecified convulsions; Z11.52 Encounter for screening for COVID-19; Z87.892 Personal history of anaphylaxis; Z88.1 Allergy status to other antibiotic agents; I25.2 Old myocardial infarction; K59.00 Constipation, unspecified; F41.9 Anxiety disorder, unspecified; F32.A Depression, unspecified; E87.5 Hyperkalemia; I44.7 Left bundle-branch block, unspecified; D69.6 Thrombocytopenia, unspecified; Z79.01 Long term (current) use of anticoagulants; Z51.5 Encounter for palliative care; I25.5 Ischemic cardiomyopathy; Z88.8 Allergy status to other drugs, medicaments and biological substances; Z88.0 Allergy status to penicillin; Z88.6 Allergy status to analgesic agent; Z91.041 Radiographic dye allergy status; Z88.5 Allergy status to narcotic agent; I25.10 Atherosclerotic heart disease of native coronary artery without angina pectoris; Z79.02 Long term (current) use of antithrombotics/antiplatelets; I08.1 Rheumatic disorders of both mitral and tricuspid valves; Z91.81 History of falling; L89.152 Pressure ulcer of sacral region, stage 2; L89.626 Pressure-induced deep tissue damage of left heel; L89.621 Pressure ulcer of left heel, stage 1
CPT/HCPCS: 71046; 71250; 73502; 80048; 80053; 82962; 83036; 83880; 84484; 85014; 85018; 85025; 85610; 86706; 87070; 87340; 87502; 87811; 93005; 93306; 99285; G0257; P9047; Q5106

== ENCOUNTER 2024-05-08 23:19 | Inpatient (IN) | payer OTHER, SELFPAY ==
[2024-05-08] VITALS (12 sets, daily range): BP systolic 95–111; BP diastolic 61–72
--- NOTE | 2024-05-08 14:23 | ED.GENMED ---
History of Present Illness
General
Chief Complaint: Change Level of Consciousness
Source: patient and records
Time Seen by Provider: 05/08/24 14:03
History of Present Illness
History of Present Illness:
This patient is a 64-year-old female who was sent to the emergency department from the group home where she resides after she was noted to have a change in mental status. Patient is reportedly usually combative and was noted to be less so today
which was of concern. Of note, patient has a rectal temperature of 104.5. Patient has an extensive medical history which I have reviewed. History is very limited from patient.
Past History
Past History
ED Past Medical History: Other (Heart failure, A-fib, mechanical mitral valve replacement, bioprosthetic aortic valve replacement, end-stage renal disease, intracranial hemorrhage, diabetes, GI bleed, seizures, pulmonary hypertension)
ED Past Surgical History: Other
Social History
Living: group home
Employment: Not employed
Phy Exam
Physical Exam
Physical Exam:
GENERAL: Awake but drowsy, in no apparent distress
EYE: L pupil round and recative, R pupil fixed and asx
NECK: Supple, no significant adenopathy.
ENT: o/p clr, mm dry.
CARDIAC: Regular rate and rhythm .
LUNGS: Equal breath sounds bilaterally, no acute respiratory distress, diffuse rales noted
ABDOMEN: Soft, without focal tenderness, no r/g there is an area of bruising/warmthswelling RLq (?hematoma)
NEUROLOGICAL: awake but drowsy, follows some commands, R sided paralysis, unable to assess cerebellar/speech/etc. No facial droop
SKIN: Warm and dry, skin intact. Brusing scattered, espec R ant hip and rlq area
MUSCULOSKELETAL: No edema, well perfused.
PSYCH:min interaction.
Sepsis
Sepsis Screening
Sepsis Assessment: Sepsis
Sepsis Screen
Sepsis Screen: Sepsis
Date: 05/09/24
Time: 12:43
Course
Orders/Labs/Results
Orders:
Orders
05/08/24 13:55
Complete Blood Count/With Diff Urgent
Comprehensive Metabolic Panel Urgent
Lactate Level [Lactic Acid] Urgent
Troponin I Urgent
05/08/24 14:07
COVID-19 Antigen Urgent
Source: Nasal Swab
INF RAPID [Influenza A+B Rapid Molecular] Urgent
YARELI Source: Nasal Swab
Specimen Description:
05/08/24 14:22
Prothrombin Time Urgent
Acetaminophen [Tylenol/Feverall] 650 mg RECTAL NOW STA
CR Chest - 2 Views Urgent
Comment:
Reason For Exam: fever
05/08/24 14:52
EKG [Electrocardiogram (*1)] Urgent
Reason for Study: Tachycardia
EKG- Treatment ONCE
05/08/24 15:08
0.9% Sodium Chloride 500 ml [Nss] 500 ml IV BOLUS
05/08/24 16:26
CT Abd/pel Without Iv Or Oral Urgent
Comment:
Reason For Exam: rlq swellinghematoma
05/08/24 17:57
Vancomycin [Vancocin] 1,500 mg 0.9% Sodium Chloride 500 ml [Nss] 500 ml IV NOW
05/08/24 18:17
LevoFLOXacin 750 MG/150 ML [Levaquin] 750 mg in 150 ml IV NOW
05/08/24 20:00
LevoFLOXacin 750 MG/150 ML [Levaquin] 750 mg in 150 ml IV ONCE
05/08/24 22:59
Admit/Transfer Patient As Directed
Co-Sign Provider:
Level of Care: Inpatient admission
Assign to:: Telemetry
Physician / Group: hospitalist
Diagnosis: sepsis
Reason for Telemetry: Other
Other Reason for Telemetry: sepsis
Date to Stop Telemetry: 05/10/24
Time to Stop Telemetry: 11:00
Reason for Hospitalization: sepsis
Expected length of stay greater than two midnights?: Yes
ELOS- Estimated Length of Stay in days: 2
I certify the patient meets the requirements for IP care: Yes
PRN Pain Medication Management As Directed
May give lesser potent ordered pain med per pt: Yes
preference::
Protocol:: Medication orders for pain may be administered in a
manner that supports deferring to patient preference
when the pt is:
- Requesting an ordered lesser potent pain medication.
Least to most potent pain medications are defined
as: acetaminophen < NSAID < tramadol < opioids
(morphine, oxycodone, hydromorphone).
- Requesting a lesser dose of the same medication IF
ORDERED.
- Requesting a less intrusive route of administration
if both routes are prescribed by the provider (PO <
IV).
05/08/24 23:03
Code Status As Directed
Resuscitation Status: Full Code
05/08/24 23:28
Blood Culture Stat
YARELI Source: Blood/Venous
Specimen Description:
05/09/24 01:12
Acetaminophen [Tylenol] 650 mg PO Q4HPRN PRN
Bisacodyl [Dulcolax] 10 mg RECTAL DAILYPRN PRN
Ipratropium/Albuterol Sulfate [Duoneb] 3 ml INH R Q6HPRN PRN
Melatonin 3 mg PO HSPRN PRN
Midodrine [ProAmatine] 10 mg PO Q4HPRN PRN
Polyethylene Glycol Powder [Miralax] 17 grams PO DAILYPRN PRN
VANCOMYCIN Pharmacy to Dose [VANCOCIN Pharmacy to Dose] 1 each Pharmacy To Prepare [Call Pharmacy To Prepare] 0 ml IV PER PROTOCOL
albuterol-budesonide See Dose Instructions INH R Q8HPRN PRN
05/09/24 01:12
Consult Notification Routine
Specialty to Notify: Nephrology
Date consulting provider notified: 05/09/24
Time consulting provider notified: 08:28
Notified:: Provider
Comment: via TT
NEPHROLOGY CONSULT Routine
Consulting Provider: Luis Alberto Parker
Was physician already notified: No
Reason for consult: ESRD on HD M/W/F via PC, here with fever likely pna
Activity As Directed
Activity Level: Out of Bed-Early Mobility
Bedside Glucose Monitoring As Directed
Frequency: AC&HS
Intake/ Output As Directed
Frequency: Per unit guidelines
Pneumatic Compression Sleeves As Directed
Type: Knee high
Vital Signs As Directed
Frequency: Per unit guidelines
Weight As Directed
Frequency: Once
Comment: on admission
O2 Therapy [RESP] Routine
Nasal Cannula Liter Flow: 2 LPM
Titrate/Wean O2 to maintain O2 sat greater than (%): 93
Special Instructions: Wean as tolerated
Pulse Ox/cont/shift [RESP] Routine
Quantity: 1
Special Instructions: notify provider if SPO2 < 91%
DX Deep Vein Thrombosis Video Routine
05/09/24 04:22
Basic Metabolic Panel IN AM
Complete Blood Count/No Diff IN AM
Procalcitonin IN AM
PCT Algorithmm Indication: Respiratory
05/09/24 07:30
Insulin Aspart Corrective Low [Novolog Flexpen-Low Resistance] See Protocol SC AC
Insulin Aspart Pen [Novolog Flexpen] 3 units SC AC
05/09/24 08:00
Amiodarone [Pacerone] 200 mg PO BID
Budesonide/Formoterol 160/4.5 [Symbicort 160/4.5 Mcg Inhaler] 2 puff INH R BID
Calcitriol [Rocaltrol] 0.25 mcg PO DAILY
Calcium Acetate [Phoslo] 667 mg PO BID AT 0800,1700
Carvedilol [Coreg] 25 mg PO BID
Cyanocobalamin [Vitamin B-12] 1,000 mcg PO DAILY
Divalproex Sodium [Depakote Sprinkle] 250 mg PO BID
FOLic ACID [Folvite] 1 mg PO DAILY
Pantoprazole [Protonix] 40 mg PO DAILY
05/09/24 12:00
Ferrous Sulfate [Feosol] 325 mg PO NOON
Thiamine HCl [Vitamin B1] 100 mg PO NOON
05/09/24 Dinner
Sodium, 4 Gram (MAJOR)
At Your Request: Non-Participating
Does patient need a safe tray?: No
Fluid Restriction: 1500 mL/day (50 oz)
Low Sodium: Potassium, 2 Gram
1800 [place]/ 15 CHO Diabetic
05/09/24 22:00
Atorvastatin [Lipitor] 40 mg PO HS
Ezetimibe [Zetia] 10 mg PO HS
Famotidine [Pepcid] 10 mg PO HS
Renal Cap [Nephrocap] 1 capsule PO HS
05/10/24 11:00
DC Protocol for Telemetry ONCE
05/11/24 20:00
LevoFLOXacin 500 MG/100 ML [Levaquin] 500 mg in 100 ml IV Q48H
Abnormal Lab Results
05/08/24 05/08/24
13:55 14:22
WBC 13.5 H 10^3/uL
(4.8-10.8)
RBC 2.82 L 10^6/uL
(4.20-5.40)
Hgb 8.8 L g/dL
(12.0-16.0)
Hct 27.6 L %
(37.0-47.0)
MCH 31.2 H pg
(27.0-31.0)
MCHC 31.9 L g/dL
(33.0-37.0)
RDW 20.9 H %
(11.5-14.5)
Plt Count 57 L D 10^3/uL
(130-400)
MPV 12.4 H fL
(7.4-10.4)
Abs Immat Gran (auto) 0.1 H 10^3/uL
(0-0.05)
Absolute Neuts (auto) 12.4 H 10^3/uL
(1.4-6.5)
Absolute Lymphs (auto) 0.5 L 10^3/uL
(1.2-3.4)
Immature Gran % 0.7 H %
(0-0.5)
Neutrophils % 91.6 H %
(42.2-75.2)
Lymphocytes % 3.7 L %
(20.5-51.1)
PT 22.3 H Sec
(11.4-14.6)
Potassium 5.5 H mmol/L
(3.5-5.1)
BUN 29 H mg/dl
(7-17)
Creatinine 3.6 H mg/dL
(0.6-1.0)
Glucose 239 H mg/dl
(70-99)
Lactic Acid 5.2 H* mmol/L
(0.7-2.0)
Calcium 8.3 L mg/dl
(8.4-10.2)
Total Bilirubin 1.4 H mg/dl
(0.2-1.3)
AST 45 H U/L
(14-36)
Troponin I 1.560 H* ng/ml
05/08/24 13:55
05/08/24 13:55
Vital Signs
Initial and Last Documented VS:
Initial Vital Signs
BP
95/61
05/08/24 13:40
Last Documented Vital Signs
Temp Pulse Resp BP Pulse Ox
97.6 F 93 16 93/63 100
05/09/24 11:00 05/09/24 11:47 05/09/24 11:00 05/09/24 11:47 05/09/24 11:00
*Critical Care Note
Total Time (30-74mins, 75-104mins- exclusive of procedures): Not Applicable
Update Note
Update Note:
Patient presents to the Emergency Department with fever and change in mental status
Number and Complexity of Problems Addressed at the Encounter
� Chronic conditions affecting care: End-stage renal disease, anticoagulation
� Acute Exacerbation and/or Progression of Chronic Illness:
� Differential Diagnosis includes: But not limited to urosepsis, pneumonia, soft tissue hematoma, etc. etc.
Amount and/or Complexity of Data to be Reviewed and Analyzed
� I performed an independent evaluation of and my interpretation is:
EKG:read by me, nsr, lbbb (unchanged)
CT:1). 5 x 10 x 15 cm hematoma in the subcutaneous tissues of the right anterolateral pelvis extending down to the inguinal region
2). Small bilateral pleural effusions with associated compressive atelectasis at the lung bases.
3). Small volume ascites in the abdomen and pelvis
4). Biliary sludge in the gallbladder
5). Postoperative changes with valvular replacement chest
6). Hepatomegaly
Xrays:There is moderate diffuse groundglass airspace disease throughout both lungs suggesting pneumonia
Laboratory Studies: Elevated white blood cell count, anemia is at baseline, mild hyperkalemia consistent with patient's history of renal failure. Lactic acid 5.2 consistent with suspected sepsis.
Other:
� Review of other/old records reveals: Prior discharge summary reviewed, patient has had history of intracranial hemorrhage yet is anticoagulated given her artificial valves. Goal INR is 3.0
� Clinical information was obtained by an independent historian:
� Prescriptions/Medications Considered but not given:
� Further testing considered but not performed:
Risk of Complications and/or Morbidity or Mortality of Patient Management
� Social determinants of health affecting care:
� Discussion with other providers (PCP, Hospitalists, Consultants, etc):
� Escalation of care including admission/observation vs risk of discharge considered: 3:05 PM awaiting chest x-ray, urine, CT to further define cause of presumed sepsis. Blood pressure remained stable. Will give chest cautious
volume of fluids given patient's history of renal failure.
545pm ct/cxr noted, abx for pna ordered. pt resting comfortably. TT for admission, sepsis suspect pna source, ese lneed attention to hematoma espec in context of warfarin use.
ED Attending Note
-
Portions of this chart may have been created with voice recognition software.� Occasional wrong word or��sound alike� substitutions may have occurred due to the inherent limitations of voice recognition software.
Discharge Plan
Departure
Patient Disposition: Admit
Date of Disposition: 05/08/24
Time of Disposition: 17:46
Admit to: Telemetry
Presentation/result/management discussed w/ accepting MD/DO: Hospitalist
Condition: Fair
Discharge Problem:
Sepsis, Pneumonia
Interventions
Interventions:
*Risk Screen - Suicide Last Done: 05/09/24 01:35
*General Assessment Last Done: 05/08/24 14:15
*Neglect/Abuse Screening Last Done: 05/09/24 10:00
ED- Fall Risk Assessment Last Done: 05/09/24 10:00
*ED COVID-19 Vaccine History Last Done: 05/08/24 14:15
*Nursing Disposition Last Done: 05/09/24 10:00
ED- Cardiac Assessment Last Done: 05/09/24 09:00
ED- Neurological Assessment Last Done: 05/09/24 09:00
ED-Psychological Assessment Last Done: 05/08/24 18:15
ED- Pulmonary Assessment Last Done: 05/09/24 09:00
Discharge Date and Time
Discharge Date/Time: 05/09/24 10:03
[2024-05-08 14:32] LABS: COVID-19 Antigen Negative (Negative)
[2024-05-08 14:33] LABS: ALT (SGPT) 17 U/L (0-35); AST (SGOT) 45 U/L (14-36); Albumin 3.8 g/dl (3.5-5.0); Alkaline Phosphatase 74 U/L (38-126); Blood Urea Nitrogen 29 mg/dl (7-17); Calcium 8.3 mg/dl (8.4-10.2); Carbon Dioxide 22 mmol/L (22-30); Chloride 98 mmol/L (98-107); Glucose 239 mg/dl (70-99); Potassium 5.5 mmol/L (3.5-5.1); Sodium 139 mmol/L (135-145); Total Bilirubin 1.4 mg/dl (0.2-1.3); Total Protein 7.2 g/dl (6.3-8.2)
[2024-05-08] MEDS: TYLENOL/FEVERALL 650 MG RECTAL (14:33)
[2024-05-08 14:36] LABS: % Basophils 0.2 % (0-2); % Eosinophils 0.1 % (0-6); % Immature Granulocytes 0.7 % (0-0.5); % Lymphocytes 3.7 % (20.5-51.1); % Monocytes 3.7 % (1.7-9.3); % Neutrophils 91.6 % (42.2-75.2); Absolute Immature Granulocytes 0.1 10^3/uL (0-0.05); Absolute Lymphocytes 0.5 10^3/uL (1.2-3.4); Absolute Monocytes 0.5 10^3/uL (0.1-0.6); Absolute Neutrophils 12.4 10^3/uL (1.4-6.5); Hematocrit 27.6 % (37.0-47.0); Hemoglobin 8.8 g/dL (12.0-16.0); Mean Corp Hgb Conc. 31.9 g/dL (33.0-37.0); Mean Corpuscular Hgb 31.2 pg (27.0-31.0); Mean Corpuscular Volume 97.9 fL (81.0-99.0); Nucleated Red Blood Cells % 0.3 %; Red Blood Cell Count 2.82 10^6/uL (4.20-5.40); Red Cell Dist. Width 20.9 % (11.5-14.5); White Blood Cell Count 13.5 10^3/uL (4.8-10.8)
[2024-05-08 14:43] LABS: Lactic Acid 5.2 mmol/L (0.7-2.0)
[2024-05-08 14:55] LABS: INR 1.94; PT 22.3 Sec (11.4-14.6)
[2024-05-08] MEDS: NSS 500 IV (15:24)
[2024-05-08 15:37] LABS: Mean Platelet Volume 12.4 fL (7.4-10.4); Platelet Count 57 10^3/uL (130-400)
[2024-05-08] MEDS: VANCOCIN 530 MG IV (18:02)
[2024-05-08] MEDS: LEVAQUIN 150 IV (19:40)
--- NOTE | 2024-05-08 22:41 | HPS.HSE ---
Family Physician
-
Family Physician: Damian Daniel MD
Chief Complaint
-
Altered mental status and fever
History of Present Illness
This is a 62-year-old female with an unfortunate complex past medical history will presents to the emergency department from longterm after being found to be altered and had of rectal temperature as high as 103.
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
CVA, history of seizures, atrial fibrillation on, status post mechanical mitral valve on anticoagulation amongst others. She recently suffered multiple falls and intracranial hemorrhage on April 20. She was seen at [facility]. There
was no surgical intervention and patient was told to hold anticoagulation until follow-up with neurosurgery. She presented to [facility] on hospital after was with shortness of breath and found to be in CHF and significant NSTEMI with a peak troponin of
11.8. At the time she was in atrial fibrillation with rapid ventricular response. She was a poor candidate for cardioversion or ablation. She was started on amiodarone. She was dialyzed. She was not a candidate for cath and this was not
pursued. She remained supratherapeutic throughout her hospital stay with plans to follow-up with neurosurgery as outpatient.
Approximately 2 days after discharge patient now returns to the emergency department from longterm after she was found to be altered. At baseline she was combative and quite active. However she was much more somnolent and less interactive
today. They checked her temperature and it was over 103 at the longterm so she was transferred to the emergency department. She has self was unable to provide any history. They did not report any coughing or worsening shortness of breath.
On arrival in the emergency department she was febrile to 104, blood pressure was in the mid 90s over 60s, she was satting at 100% on 2 L nasal cannula. ECG shows sinus rhythm at a rate of 100 with left bundle branch block and no acute ischemic
changes. Troponin was 1.5. COVID test was negative. Influenza test was negative. CBC shows a white count of 13.5 with known anemia and hemoglobin of 8.8, thrombocytopenia to 57. Electrolytes consistent with ESRD, potassium was 5.5 bicarb was 22
creatinine was 3.6 with a BUN of 29. INR was 1.9. Lactic acid was elevated at 5.2. She does not make any urine. Chest x-ray showed moderate diffuse groundglass opacities throughout both lungs which is suggestive of pneumonia. She had a CT of
the abdomen pelvis without contrast which which showed hematoma in the subcutaneous tissues of the right anterolateral pelvis extending down to the inguinal region. There were small bilateral pleural effusions with associated compressive
atelectasis at the lung base. Small ascites in the abdomen and pelvis. And some biliary sludge.
Medical History
Past Medical History
Past Medical History: Reports Other
Additional Past Medical History:
type 1 diabetes, mechanical heart valve on Coumadin, ESRD on hemodialysis Friday, Friday, Friday, chronic respiratory failure on 2 L, CHF, CVA, chronic pain, smoldering multiple myeloma, hypertension, hyperlipidemia, anemia, seizures
Past Surgical History: Reports Cardiac (Mechanical mitral valve)
Additional Past Surgical History:
Recent intracranial hemorrhage
Recent rectus sheath hematoma
Social History
Tobacco: Non-smoker
Alcohol: None
Drug: None
Personal: Single
Living: Snf
Family History
Family History: Not pertinent
Allergies / Home Medications
Allergies reflects when Allergies were last updated in [email or web address].
Home Medications with original date entered in [email or web address]
Allergy/Medication List:
Allergies
Allergy/AdvReac Type Severity Reaction Status Date / Time
ARGENIS Inhibitors Allergy Unknown Unknown Verified 04/30/24 14:44
nitroglycerin Allergy Unknown Unknown Verified 04/30/24 16:00
Penicillins Allergy Unknown Unknown Verified 04/30/24 14:44
aspirin Allergy Hives Verified 04/30/24 20:20
ceftriaxone Allergy Unknown Verified 04/30/24 14:44
cyclobenzaprine Allergy Unknown Verified 04/30/24 14:44
gabapentin Allergy Unknown Verified 04/30/24 14:44
hydromorphone Allergy Unknown Verified 04/30/24 14:44
Iodinated Contrast Media Allergy Hives Verified 04/30/24 14:45
isosorbide Allergy Unknown Verified 04/30/24 14:44
lactose Allergy Unknown Verified 04/30/24 14:44
lactulose Allergy Unknown Verified 04/30/24 14:44
metformin Allergy Unknown Verified 04/30/24 14:44
nortriptyline Allergy Unknown Verified 04/30/24 14:44
NSAIDS (Non-Steroidal Allergy Unknown Verified 04/30/24 14:44
Anti-Inflamma
pregabalin Allergy Unknown Verified 04/30/24 14:44
tramadol Allergy Unknown Verified 04/30/24 14:44
Home Medications
acetaminophen 325 mg tablet (Tylenol) 650 mg PO Q4HPRN PRN mild pain 04/30/24
atorvastatin 40 mg tablet (Lipitor) 40 mg PO HS 04/30/24
bisacodyl 10 mg rectal suppository (Dulcolax (bisacodyl)) 10 mg AL DAILYPRN PRN constipaiton, no result from mom 04/30/24
calcitriol 0.25 mcg capsule 0.25 mcg PO DAILY 04/30/24
carvedilol 25 mg tablet (Coreg) 25 mg PO BID 04/30/24
cyanocobalamin (vitamin B-12) 1,000 mcg tablet 1,000 mcg PO DAILY 04/30/24
ezetimibe 10 mg tablet (Zetia) 10 mg PO HS 04/30/24
ferrous sulfate 325 mg (65 mg iron) tablet 325 mg PO NOON 04/30/24
folic acid 1 mg tablet 1 mg PO DAILY 04/30/24
insulin glargine 100 unit/mL (3 mL) subcutaneous pen (Lantus Solostar U-100 Insulin) 10 unit SC HS 04/30/24
ipratropium 0.5 mg-albuterol 3 mg (2.5 mg base)/3 mL nebulization soln 3 ml inhalation R Q6HPRN PRN sob 04/30/24
melatonin 1 mg tablet 1 mg PO HSPRN PRN sleep 04/30/24
ondansetron 4 mg disintegrating tablet 4 mg PO Q6HPRN PRN nausea 04/30/24
pantoprazole 40 mg tablet,delayed release (Protonix) 40 mg PO DAILY 04/30/24
polyethylene glycol 3350 17 gram oral powder packet (Miralax) 17 g PO DAILYPRN PRN constipation 04/30/24
thiamine HCl (vitamin B1) 100 mg tablet 100 mg PO NOON 04/30/24
insulin aspart U-100 100 unit/mL (3 mL) subcutaneous pen 3 unit (0.03 mL) SC AC 30 days #2.7 mL 05/06/24
albuterol 90 mcg-budesonide 80 mcg/actuation HFA aerosol inhaler 1 inh inhalation R Q8HPRN PRN sob 05/08/24
amiodarone 200 mg tablet 200 mg PO BID 05/08/24
budesonide-formoterol HFA 160 mcg-4.5 mcg/actuation aerosol inhaler 2 puff inhalation R BID 05/08/24
calcium acetate 667 mg tablet 667 mg PO BID 05/08/24
divalproex 125 mg capsule,delayed release sprinkle 250 mg PO BID 05/08/24
famotidine 10 mg tablet 10 mg PO HS 05/08/24
vitamin B complex and vitamin C no.20-folic acid 1 mg capsule (Renal Caps) 1 cap PO HS 05/08/24
Review of Systems
-
Unable to obtain full review of systems at this time due to: Dementia
Physical Exam
Vital Signs
Vital Signs
Temp Pulse Resp BP Pulse Ox
97.6 F 98 25 99/67 97
05/08/24 18:56 05/08/24 18:00 05/08/24 17:30 05/08/24 17:09 05/08/24 18:11
Physical Exam
General: No Apparent Distress; No Respiratory Distress
HEENT: NormoCephalic, Anicteric, Moist mucous membranes, Atraumatic, PERRLA and Oxygen
Respiratory: Clear
Cardiac: S1/S2 and Regular Rhythm
Breast: Deferred by me
GI: Soft, Non Tender, Non Distended and Normal Bowel Sounds
Rectal: Deferred by Provider
Genito-urinary: Deferred by me
Musculoskeletal: No Clubbing, No Cyanosis, Edema, Left Lower Extremity (trace) and Edema, Right Lower Extremity (trace)
Skin: Warm
Neuro: AO x 3
Hematologic/Lymphatic: No Lymphadenopathy
Psych: Calm
Laboratory Results
-
05/08/24 13:55
05/08/24 13:55
Laboratory Results
PT 22.3 Sec (11.4-14.6) H 05/08/24 14:22
INR 1.94 05/08/24 14:22
Lactic Acid 5.2 mmol/L (0.7-2.0) H* 05/08/24 13:55
Total Bilirubin 1.4 mg/dl (0.2-1.3) H 05/08/24 13:55
AST 45 U/L (14-36) H 05/08/24 13:55
ALT 17 U/L (0-35) 05/08/24 13:55
Alkaline Phosphatase 74 U/L (38-126) 05/08/24 13:55
Troponin I 1.560 ng/ml H* 05/08/24 13:55
Data Reviewed
-
Diagnostic Radiology: Image Personally Visualized and interpreted and Report Reviewed by me
CT Scan: Report Reviewed by me
Medical Tests (Nuc Med, Echo, EKG etc): Image Personally Visualized and interpreted
Lab Data: Labs Reviewed by me
Old Records: Reviewed
Impression/Plan
-
IMPRESSION:
64 y.o female with multiple commorbidities here with fever, leukocytosis and altered mental status. Improved with rectal tylenol.
PLAN:
Fever - T max 104 here. Source not entirely clear to me but clearly appears to be infectous with elevated lactic acid levels. GGO on xray suggestive of pneumonia with mild oxygen requirements and no cough. Negative COVID and Flu. No urine
output. Has a permcath for HD. No abdominal findings on exam or non-contrast CT.
- admit to telemetry given commorbidities and possible sepsis
- blood culture
- start broad spec abx Vancomycin and levaquin. History of anaphylaxix and cardiac arrest to ceftriaxone
- monitor fever profile for now
- prn respiratory treatments
- pro [place] in am
Hematoma - The hematoma described on CT appears similar to the rectus sheath hematoma previously noted in prior notes.
- continuing to hold AC pending review by outpatient neurosurgery
ICH - April 20. AC on hold
- continue to hold coumadin, it is now sub therapeutic for mechanical valve
ESRD - Appears euvolemic
- HD M/W/F per records
- K slightly elevated, low K diet for now
- nephrology consultation
pAFIB and CHF - rate controlled, appears euvolemic
- continue amiodarone
- continue coreg as tolerated
- UF per HD
NSTEMI - Trop 1.5, trending down from recent admission. No CP
- will not trend further
IDDM
- lantus 10 hs
- aspart 3 tidac
- low dose sliding scale
DVT PPX - SCDs
Code status - full code
[2024-05-09] VITALS (19 sets, daily range): BP systolic 91–127; BP diastolic 61–80; BMI 23.2; BMI 23.1
[2024-05-09 05:01] LABS: Blood Urea Nitrogen 38 mg/dl (7-17); Calcium 7.7 mg/dl (8.4-10.2); Carbon Dioxide 25 mmol/L (22-30); Chloride 100 mmol/L (98-107); Estimated Creatinine Clearance 15 ml/min; Glucose 208 mg/dl (70-99); Sodium 139 mmol/L (135-145); eGFR 13.25
[2024-05-09 05:08] LABS: Potassium 5.2 mmol/L (3.5-5.1)
[2024-05-09 05:14] LABS: Procalcitonin 38.63 ng/ml (0.0-0.25)
[2024-05-09 05:27] LABS: Hematocrit 23.9 % (37.0-47.0); Hemoglobin 7.6 g/dL (12.0-16.0); Mean Corp Hgb Conc. 31.8 g/dL (33.0-37.0); Mean Corpuscular Hgb 30.8 pg (27.0-31.0); Mean Corpuscular Volume 96.8 fL (81.0-99.0); Mean Platelet Volume 12.7 fL (7.4-10.4); Platelet Count 48 10^3/uL (130-400); Red Blood Cell Count 2.47 10^6/uL (4.20-5.40); Red Cell Dist. Width 20.6 % (11.5-14.5); White Blood Cell Count 11.7 10^3/uL (4.8-10.8)
[2024-05-09] MEDS: FOLVITE 1 MG PO (09:30)
[2024-05-09] MEDS: PROTONIX 40 MG PO (09:31)
[2024-05-09] MEDS: VITAMIN B-12 1000 MCG PO (09:31)
[2024-05-09] MEDS: SYMBICORT 160/4.5 MCG INHALER 2 PUFF INH (09:41)
[2024-05-09] MEDS: LR 500 IV (09:46)
[2024-05-09 10:03] LABS: Lactic Acid 1.4 mmol/L (0.7-2.0)
[2024-05-09 10:14] LABS: Vancomycin Random 20.6 ug/ml
--- NOTE | 2024-05-09 10:30 | PHA.VAN.IN ---
Assessment
- Assessment
Renal Function: Patient has ESRD, on chronic Hemodialysis
Hemodialysis Schedule: MWF
Maximum Temperature: 104.5 F
Concomitant Antimicrobials: AZTREONAM
Plan
- Plan
Initial / Loading Dose: VANCO 1500MG X1 (05/08 @1800)
Monitoring: RANDOM 20.6 (05/09 @0944), HOLD DOSE 05/09. RANDOM 05/10 @0600
MRSA Screen: Ordered per protocol
Pharmacokinetics Vancomycin I
- -
Patient Age: 64
Patient Sex: Female
Vancomycin Day #: 2
Indication: PULM
Requesting Provider: DR. LOUIE
Pertinent Antimicrobial Allergies:
PENICILLIN (UNKNOWN)
CEFTRIAXONE (UNKNOWN)
Height / Weight:
Height 5 ft 6 in
Actual Weight 64 kg
Pertinent Past Medical History: ESRD - HD MWF, DM, CHF
- Vital Signs / Lab Results
Temp Pulse Resp BP Pulse Ox
97.5 F 95 16 92/66 98
05/09/24 08:51 05/09/24 09:44 05/09/24 09:44 05/09/24 09:29 05/09/24 09:44
Lab Results - Hematology
05/08/24 05/09/24
13:55 04:22
WBC 13.5 H 11.7 H
Lab Results - Chemistry
05/08/24 05/09/24
13:55 04:22
BUN 29 H 38 H
Creatinine 3.6 H 3.7 H
Estimated Creat Clear 15
Albumin 3.8
05/08/24 05/09/24
13:55 09:37
Lactic Acid 5.2 H* 1.4
Microbiology Results
05/08/24 23:28 Blood Culture - Preliminary
Blood/Venous No Growth in 24 hours- Final report to follow
05/08/24 14:07 Influenza Types A & B (FAIZAN) - Final
Nasal Swab Negative for Influenza A & B, NAAT
Negative results must be combined with clinical observations
and patient history.
Nucleic Acid Amplification test (NAAT)performed on the
[employer] NOW platform.
[2024-05-09 10:54] LABS: Glucose - Point of Care 200 mg/dl (70-99)
[2024-05-09] MEDS: NOVOLOG FLEXPEN SC (10:56)
[2024-05-09] MEDS: NOVOLOG FLEXPEN-LOW RESISTANCE SC (11:11)
[2024-05-09] MEDS: PACERONE 200 MG PO ×2 (11:47→22:32)
[2024-05-09] MEDS: PHOSLO 667 MG PO ×2 (11:47→17:53)
[2024-05-09] MEDS: ROCALTROL 0.25 MCG PO (11:47)
[2024-05-09] MEDS: DEPAKOTE SPRINKLE 250 MG PO ×2 (11:48→20:53)
[2024-05-09] MEDS: NOVOLOG FLEXPEN-LOW RESISTANCE 2 UNITS SC ×2 (11:51→17:54)
[2024-05-09] MEDS: NOVOLOG FLEXPEN 3 UNITS SC ×2 (11:51→17:53)
--- NOTE | 2024-05-09 12:02 | W.PN.HOSP.TC ---
Today's Communication/Plan
-
blood culture f/u
abx
echo
hd as per renal
monitor bp, hold coreg
Assessment / Plan
Assessment / Plan
Physical Exam
General: No Apparent Distress; No Respiratory Distress
HEENT: NormoCephalic, Anicteric, Moist mucous membranes, Atraumatic, PERRLA and Oxygen
Respiratory: Clear
Cardiac: S1/S2 and Regular Rhythm
Breast: Deferred by me
GI: Soft, Non Tender, Non Distended and Normal Bowel Sounds
Rectal: Deferred by Provider
Genito-urinary: Deferred by me
Musculoskeletal: No Clubbing, No Cyanosis, Edema, Left Lower Extremity (trace) and Edema, Right Lower Extremity (trace)
Skin: Warm
Neuro: AO x 3
Hematologic/Lymphatic: No Lymphadenopathy
Psych: Calm
#Severe sepsis
� #Bacteremic in 1 blood culture, only 1 blood culture was drawn in the ED, follow-up repeat blood culture
� Follow-up cultures
� Continue antibiotics, multiple antibiotic allergies
� Monitor fever curve, white count
� Permacath does not appear to be tender or erythematous around insertion site
�Procalcitonin unreliable due to HERNANDO although still significantly high
� Echo follow-up - has mechanical valve
�Follow-up MRSA swab
Hematoma - The hematoma described on CT appears similar to the rectus sheath hematoma previously noted in prior notes.
- continuing to hold AC pending review by outpatient
-if hgb drops - will need to reimage area
�Trend CBC
ICH - April 20. AC on hold
- continue to hold coumadin, it is now sub therapeutic for mechanical valve
-was told to f/u with neurosurgery
�Keppra�resumed initiated due to history of bleeds
ESRD
Hyperkalemic
- HD M/W/F per records
- K slightly elevated, low K diet for now
- nephrology consultation
pAFIB and CHF - rate controlled, appears euvolemic
- continue amiodarone
- hold coreg due to low BPs
- UF per HD
NSTEMI - Trop 1.5, trending down from recent admission. No CP
- will not trend further
-no chest pain
IDDM
- lantus 10 hs
- aspart 3 tidac
- low dose sliding scale
DVT PPX - SCDs
Code status - full code
Total time spent on today's encounter was 50 minutes which included time spent in counseling the patient/family regarding diagnosis and treatment plan as listed above, goals of care, and symptom management. Case was discussed with nursing staff,
specialists, and care coordinators/case management. All labs and imaging personally reviewed by me. Remainder the time spent in detailed review of previous records, lab data, imaging, and other medical provider documentation.
Anticipated Discharge: > 48 hours
Subjective/Interval History
-
Date of Service: May 09, 2024
no acute events
Objective Data
-
Labs:
Laboratory Results
05/09/24 05/09/24
04:22 18:00
WBC 11.7 H Pending
Hgb 7.6 L Pending
Hct 23.9 L Pending
Plt Count 48 L Pending
Sodium 139
Potassium 5.2 H
Chloride 100
Carbon Dioxide 25
BUN 38 H
Creatinine 3.7 H
Glucose 208 H
Calcium 7.7 L
Vital Signs:
Vital Signs
Temp Pulse Resp BP Pulse Ox
97.6 F 93 16 93/63 100
05/09/24 11:00 05/09/24 11:47 05/09/24 11:00 05/09/24 11:47 05/09/24 11:00
Review of Systems
-
History Source: Patient
All other systems: Not reviewed unless documented
Physical Exam
-
General: Well Developed, Well Nourished, No Apparent Distress and Comfortable
HEENT: Normocephalic, Atraumatic and Moist Mucous Membranes
Respiratory: Rales and Non Labored Respirations; Negative Accessory Resp Muscle Use
Cardiac: S1/S2, Murmur and Tachycardic; Negative Rub or Gallop
GI: Soft, Nontender, Nondistended and Normal Bowel Sounds
Musculoskeletal: No Clubbing, No Cyanosis and No Edema
Skin: Warm and Dry; Negative Rash
Neuro: Awake
Psych: Confused
Data Reviewed
-
Total Time Spent with Patient (in minutes): 55
CT Scan: Image personally visualized and interpreted and Report Reviewed by me
Labs: Labs Reviewed by me
[2024-05-09] MEDS: VITAMIN B1 100 MG PO (12:19)
[2024-05-09] MEDS: FEOSOL 325 MG PO (12:19)
[2024-05-09] MEDS: AZACTAM 2000 MG IV (12:22)
[2024-05-09] MEDS: STERILE WATER FOR INJECTION 10 ML IV (12:24)
--- NOTE | 2024-05-09 14:01 | W.CON.NEPH ---
Consultation
-
Date/Time Consultation Requested: May 09, 2024 at 1 AM
Date/Time Consultation Performed: May 09, 2024 at 2 PM
Requesting Provider: Dr. Mercado
Performing Provider: Dr. Luis Alberto Parker
Reason for Consultation: esrd
Medical History
-
Chief Complaint: fever
History of Present Illness:
The patient is a 64-year-old female with past medical history of type 2 diabetes (maintained on insulin), bioprosthetic AVR (on chronic oral anticoagulation therapy) in 2006, mechanical mitral valve 2018, on chronic Coumadin, end-stage renal disease
on hemodialysis started within the last 1 to 2 months MWF, chronic heart failure with improved EF, history of stroke, chronic pain, smoldering multiple myeloma, hypertension, hyperlipidemia, history of seizures, history of multiple brain bleeds
secondary to falls, chronic left bundle branch block, history of cardiomyopathy status post ICD in 2006 with subsequent removal due to endocarditis in 2015, admission to outside hospital for cardiac arrest felt to be secondary to anaphylaxis from
Rocephin 12/2023, history of admission for sepsis with BETTY negative for evidence of valve involvement, history of GI bleed admission 03/2024 with NSTEMI felt to be ischemia from GI bleed medically managed. Admissions have been either at [facility]
or at [place]. Prior to this she had lived with her daughter in [facility] and her care was through [facility], however then more recently moved to live with her sister in [place].
she was recently admitted to the hospital in March with shortness of breath I was dialyzed for ultrafiltration.
She presents today with altered mental status and a fever from alf.
Unable to obtain that history as the patient has declined mental status
Past Medical History
ESRD
type 2 diabetes
bioprosthetic AVR in 2006
mechanical mitral valve 2019, on chronic Coumadin
end-stage renal disease on hemodialysis started within the last 1 to 2 months
chronic heart failure with improved EF
history of stroke, chronic pain
smoldering multiple myeloma
hypertension
hyperlipidemia
history of seizures
history of multiple brain bleeds secondary to falls, most recently 04/20/24-04/29/24 resulting in admission to [facility]
chronic left bundle branch block
history of cardiomyopathy status post ICD in 2006 with subsequent removal due to endocarditis in 2015
admission to outside hospital for cardiac arrest felt to be secondary to anaphylaxis from Rocephin 12/2023
history of admission to OSH for sepsis with BETTY negative for evidence of valve involvement
history of GI bleed admission to OSH 03/2024 with NSTEMI felt to be ischemia from GI bleed medically managed
Social History
Tobacco: Non-Smoker
Alcohol: None
Family History
No CKD
Allergies / Home Medications
Allergy/AdvReac Type Severity Reaction Status Date / Time
ARGENIS Inhibitors Allergy Unknown Unknown Verified 04/30/24 14:44
nitroglycerin Allergy Unknown Unknown Verified 04/30/24 16:00
Penicillins Allergy Unknown Unknown Verified 04/30/24 14:44
aspirin Allergy Hives Verified 04/30/24 20:20
ceftriaxone Allergy Unknown Verified 04/30/24 14:44
cyclobenzaprine Allergy Unknown Verified 04/30/24 14:44
gabapentin Allergy Unknown Verified 04/30/24 14:44
hydromorphone Allergy Unknown Verified 04/30/24 14:44
Iodinated Contrast Media Allergy Hives Verified 04/30/24 14:45
isosorbide Allergy Unknown Verified 04/30/24 14:44
lactose Allergy Unknown Verified 04/30/24 14:44
lactulose Allergy Unknown Verified 04/30/24 14:44
metformin Allergy Unknown Verified 04/30/24 14:44
nortriptyline Allergy Unknown Verified 04/30/24 14:44
NSAIDS (Non-Steroidal Allergy Unknown Verified 04/30/24 14:44
Anti-Inflamma
pregabalin Allergy Unknown Verified 04/30/24 14:44
tramadol Allergy Unknown Verified 04/30/24 14:44
�Medication �Instructions �Recorded �Confirmed �Type
acetaminophen 325 mg tablet 650 mg PO Q4HPRN PRN mild pain 04/30/24 05/08/24 History
(Tylenol)
atorvastatin 40 mg tablet (Lipitor) 40 mg PO HS 04/30/24 05/08/24 History
bisacodyl 10 mg rectal suppository 10 mg VT DAILYPRN PRN 04/30/24 05/08/24 History
(Dulcolax (bisacodyl)) constipaiton, no result from mom
calcitriol 0.25 mcg capsule 0.25 mcg PO DAILY 04/30/24 05/08/24 History
carvedilol 25 mg tablet (Coreg) 25 mg PO BID 04/30/24 05/08/24 History
cyanocobalamin (vitamin B-12) 1,000 mcg PO DAILY 04/30/24 05/08/24 History
1,000 mcg tablet
ezetimibe 10 mg tablet (Zetia) 10 mg PO HS 04/30/24 05/08/24 History
ferrous sulfate 325 mg (65 mg 325 mg PO NOON 04/30/24 05/08/24 History
iron) tablet
folic acid 1 mg tablet 1 mg PO DAILY 04/30/24 05/08/24 History
insulin glargine 100 unit/mL (3 10 unit SC HS 04/30/24 05/08/24 History
mL) subcutaneous pen (Lantus
Solostar U-100 Insulin)
ipratropium 0.5 mg-albuterol 3 mg 3 ml inhalation R Q6HPRN PRN sob 04/30/24 05/08/24 History
(2.5 mg base)/3 mL nebulization
soln
melatonin 1 mg tablet 1 mg PO HSPRN PRN sleep 04/30/24 05/08/24 History
ondansetron 4 mg disintegrating 4 mg PO Q6HPRN PRN nausea 04/30/24 05/08/24 History
tablet
pantoprazole 40 mg tablet,delayed 40 mg PO DAILY 04/30/24 05/08/24 History
release (Protonix)
polyethylene glycol 3350 17 gram 17 g PO DAILYPRN PRN constipation 04/30/24 05/08/24 History
oral powder packet (Miralax)
thiamine HCl (vitamin B1) 100 mg 100 mg PO NOON 04/30/24 05/08/24 History
tablet
insulin aspart U-100 100 unit/mL 3 unit (0.03 mL) SC AC 30 days 05/06/24 05/08/24 Rx
(3 mL) subcutaneous pen #2.7 mL
albuterol 90 mcg-budesonide 80 1 inh inhalation R Q8HPRN PRN sob 05/08/24 05/08/24 History
mcg/actuation HFA aerosol inhaler
amiodarone 200 mg tablet 200 mg PO BID 05/08/24 05/08/24 History
budesonide-formoterol HFA 160 2 puff inhalation R BID 05/08/24 05/08/24 History
mcg-4.5 mcg/actuation aerosol
inhaler
calcium acetate 667 mg tablet 667 mg PO BID 05/08/24 05/08/24 History
divalproex 125 mg capsule,delayed 250 mg PO BID 05/08/24 05/08/24 History
release sprinkle
famotidine 10 mg tablet 10 mg PO HS 05/08/24 05/08/24 History
vitamin B complex and vitamin C 1 cap PO HS 05/08/24 05/08/24 History
no.20-folic acid 1 mg capsule
(Renal Caps)
Review of Systems
-
Unable to obtain full review of systems at this time due to: Dementia
Physical Exam
Vital Signs
Vital Signs
Temp Pulse Resp BP Pulse Ox
97.6 F 93 16 93/63 100
05/09/24 11:00 05/09/24 11:47 05/09/24 11:00 05/09/24 11:47 05/09/24 11:00
Lab Results
Sodium 139 mmol/L (135-145) 05/09/24 04:22
Potassium 5.2 mmol/L (3.5-5.1) H 05/09/24 04:22
Chloride 100 mmol/L (98-107) 05/09/24 04:22
Carbon Dioxide 25 mmol/L (22-30) 05/09/24 04:22
BUN 38 mg/dl (7-17) H 05/09/24 04:22
Creatinine 3.7 mg/dL (0.6-1.0) H 05/09/24 04:22
eGFR 13.25 05/09/24 04:22
Glucose 208 mg/dl (70-99) H 05/09/24 04:22
Calcium 7.7 mg/dl (8.4-10.2) L 05/09/24 04:22
Albumin 3.8 g/dl (3.5-5.0) 05/08/24 13:55
Physical Exam
General: AOx3
HEENT: PERRL, EOMI, Anicteric, Conjunctivae Clear, Ear/Nose Intact, Hearing Normal, Oropharynx Clear/Moist, Neck Supple and Trachea Midline
Respiratory: Crackels, Rhonchi and Normal Excursion
Cardiac: Regular Rate/Rhythm
Breast: Deferred by me
Abdomen: Nontender, Nondistended, Normal Bowel Sounds and No Hepatosplenomegaly
Rectal: Deferred by Provider
Genito-urinary: No Costovertebral Tender
Musculoskeletal: No Clubbing, No Cyanosis and Edema (Plus pretibial edema)
Skin: No Rash, Warm, Dry, No Clubbing, No Cyanosis, Normal Turgor and No Bruising
Neuro: Nonfocal/Grossly Intact
Hematologic/Lymphatic: No Cervical Lymphadenopathy, No Submandibular Lymphadenopathy, No Supraclavicular Lymphadenopathy and Other
Psych: Other (Oriented to time and place, complaining about ER noises and lights)
Vascular Access: CVC (Right IJ)
Data Reviewed
-
CT Scan: Image Personally Visualized and interpreted ( no active pneumonia with some pulmonary edema)
Labs: Labs Reviewed by me
Assessment/Plan
-
Impression:
ESRD MWF
Metabolic acidosis
Hyperkalemia
DM
Hypoxia with pulmonary edema and possible pneumonia
Diabetes (insulin requiring)
Secondary parathyroidism
A-fib
History of recent intracranial hemorrhage
Mechanical mitral heart valve replacement
Positive troponin/ischemic cardiomyopathy
Coronary artery disease with history of
Anemia
History of seizure
History of CVA
History of smoldering myeloma
History of GI bleed
Right IJ dialysis cath
Plan:
-Dialysis tomorrow orders provided
-Respiratory status now more stabilized, patient feels much better
-Will avoid heparin product given recent intracranial hemorrhage
-Maintain calcitriol with secondary hyperparathyroid
-MANOLO will be provided for anemia
- bacteremia gram-positive concern for catheter infection. Catheter looks clear dry and intact.
Antibiotics continue
consider catheter exchanged
overall patient has multiple comorbidities. Hospice has been discussed in the past.
no acute need for dialysis today will order for tomorrow
--- NOTE | 2024-05-09 14:05 | CM ---
Patient seen at bedside with nursing. Patient is LTC at [facility]. CM called and left for liaison Bonita. Await call back. Patient family members asking about HD. Per chart review patient was transferred from another SNF to [place] and has been
here at previously. CM will continue to follow for discharge planning needs. CM will continue to follow for discharge planning needs.
Plan;return to SNF
[2024-05-09 17:50] LABS: Glucose - Point of Care 246 mg/dl (70-99)
[2024-05-09] MEDS: TYLENOL 650 MG PO (18:13)
[2024-05-09 18:52] LABS: Glucose - Point of Care 274 mg/dl (70-99)
--- NOTE | 2024-05-09 18:58 | W.PN.UPDATE ---
Update Note
Progress Note Update
Notified by nursing staff patient is having new onset bilateral lower extremity myoclonus.
Patient is awake, and is able to say her name. She is verbal.
She has bilateral jerking movements of her lower extremities.
Will check blood work, check EKG, give Valium 5 mg IV.
Will ask LUCILLE to follow-up.
[2024-05-09] MEDS: VALIUM INJECTION 5 MG IV (19:05)
[2024-05-09 19:08] LABS: Ionized Calcium 1.05 mMOL/L (1.15-1.33)
[2024-05-09] MEDS: SYMBICORT 160/4.5 MCG INHALER INH ×2 (19:18→19:24)
[2024-05-09 19:20] LABS: Hematocrit 28.2 % (37.0-47.0); Hemoglobin 8.6 g/dL (12.0-16.0); Mean Corp Hgb Conc. 30.5 g/dL (33.0-37.0); Mean Corpuscular Hgb 31.5 pg (27.0-31.0); Mean Corpuscular Volume 103.3 fL (81.0-99.0); Mean Platelet Volume 13.3 fL (7.4-10.4); Platelet Count 58 10^3/uL (130-400); Red Blood Cell Count 2.73 10^6/uL (4.20-5.40); Red Cell Dist. Width 21.2 % (11.5-14.5); White Blood Cell Count 12.1 10^3/uL (4.8-10.8)
[2024-05-09 19:31] LABS: ALT (SGPT) 18 U/L (0-35); AST (SGOT) 27 U/L (14-36); Albumin 3.6 g/dl (3.5-5.0); Alkaline Phosphatase 79 U/L (38-126); Blood Urea Nitrogen 48 mg/dl (7-17); Calcium 8.1 mg/dl (8.4-10.2); Carbon Dioxide 13 mmol/L (22-30); Chloride 97 mmol/L (98-107); Estimated Creatinine Clearance 12 ml/min; Glucose 255 mg/dl (70-99); Potassium 6.2 mmol/L (3.5-5.1); Sodium 136 mmol/L (135-145); Total Protein 6.7 g/dl (6.3-8.2); eGFR 10.21
--- NOTE | 2024-05-09 20:12 | W.PN.UPDATE ---
Update Note
Progress Note Update
Notified by the nursing staff that the patient had an episode of BLE jerking movement during change of shift. Stat lab ordered and Valium [address] Casarez. Per staff Jerking movement stopped after Valium was given.
Afebrile and vital signs within normal limits.
Per chart review, patient has PMH of seizure and currently on Depakote.
On assessment,
Patient is responding to verbal stimuli, she was able to answer simple question. She stating that she feels okay and denies any pain or discomfort.
Plan
-Transfer to IMU
-Check Depakote level
-Ativan PRN for seizure
-BMP result discussed with nephrology technical publications writer
. Hyperkalemia protocol
. Lactate & vbg
. Bicarb gtt in d5 @ rate 100cc/hr
[2024-05-09 20:34] LABS: Venous Blood Gas B.E. -6.3 mmol/L (-4 to +4); Venous Blood Gas HCO3 18.9 mmol/L (22-27); Venous Blood Gas pCO2 35 mmHg (35-48); Venous Blood Gas pH 7.34 (7.32-7.43); Venous Blood Gas pO2 161 mmHg (30-50)
[2024-05-09 20:44] LABS: Glucose - Point of Care 239 mg/dl (70-99)
[2024-05-09] MEDS: DEXTROSE 50% SYRINGE 25 GRAMS IV (20:44)
[2024-05-09] MEDS: LOKELMA 10 GRAM PO (20:44)
[2024-05-09 20:53] LABS: Lactic Acid 5.3 mmol/L (0.7-2.0)
[2024-05-09] MEDS: NOVOLIN R 0.05 UNITS IV (21:03)
[2024-05-09] MEDS: SODIUM BICARBONATE 1150 MEQ IV (21:03)
[2024-05-09 22:29] LABS: Glucose - Point of Care 288 mg/dl (70-99)
[2024-05-09] MEDS: LANTUS 0.1 UNITS SC (22:31)
[2024-05-09] MEDS: LIPITOR 40 MG PO (22:32)
[2024-05-09] MEDS: PEPCID 10 MG PO (22:33)
[2024-05-09] MEDS: NEPHROCAP 1 CAPSULE PO (22:33)
[2024-05-09] MEDS: ZETIA 10 MG PO (22:36)
[2024-05-09 23:29] LABS: Glucose - Point of Care 266 mg/dl (70-99)
--- NOTE | 2024-05-09 23:30 | PTCARENOTE ---
Patient received as a transfer from 2nd floor. Admitted to ICU 3361 as IMU patient. She is awake but groggy. She knows her name but does not answer all questions appropriately. Denies pain when asked. She is without apparent signs of distress or
discomfort. D5W with 3 amps Bicarb infusing to LFA #22 at 100cc/hr. Left lung is essentially clear but right lung has coarse crackles t/o. Afebrile. VSS. S1S2 regular with positive click. Sr on CM with 1st degreee AVB and BBB. Bilateral pedal pulses
weak but palpable, trace BLE edema. Coccyx moist with small stage II noted. Protective sacral border donned.
[2024-05-10] VITALS (41 sets, daily range): BP systolic 89–164; BP diastolic 45–111; BMI 23.1
--- NOTE | 2024-05-10 01:00 | PTCARENOTE ---
Recheck blood sugar [address] notified, new orders received and 4 U Aspartame given. Will recheck blood sugar in 2 hours
[2024-05-10 01:42] LABS: Glucose - Point of Care 305 mg/dl (70-99)
[2024-05-10] MEDS: NOVOLOG FLEXPEN 4 UNITS SC (02:09)
[2024-05-10 04:12] LABS: Hematocrit 21.7 % (37.0-47.0); Hemoglobin 7.2 g/dL (12.0-16.0); Mean Corp Hgb Conc. 33.2 g/dL (33.0-37.0); Mean Corpuscular Hgb 31.6 pg (27.0-31.0); Mean Corpuscular Volume 95.2 fL (81.0-99.0); Mean Platelet Volume 12.5 fL (7.4-10.4); Platelet Count 47 10^3/uL (130-400); Red Blood Cell Count 2.28 10^6/uL (4.20-5.40); Red Cell Dist. Width 19.8 % (11.5-14.5); White Blood Cell Count 8.4 10^3/uL (4.8-10.8)
[2024-05-10 04:25] LABS: Lactic Acid 2.1 mmol/L (0.7-2.0)
[2024-05-10 04:30] LABS: ALT (SGPT) 15 U/L (0-35); AST (SGOT) 20 U/L (14-36); Alkaline Phosphatase 65 U/L (38-126); Blood Urea Nitrogen 54 mg/dl (7-17); Calcium 7.5 mg/dl (8.4-10.2); Carbon Dioxide 25 mmol/L (22-30); Chloride 95 mmol/L (98-107); Estimated Creatinine Clearance 10 ml/min; Glucose 275 mg/dl (70-99); Potassium 4.8 mmol/L (3.5-5.1); Sodium 135 mmol/L (135-145); Total Bilirubin 0.7 mg/dl (0.2-1.3); Total Protein 5.8 g/dl (6.3-8.2); eGFR 8.06
[2024-05-10 04:34] LABS: Depakane 36.3 ug/ml (50.0-120.0)
[2024-05-10 04:35] LABS: Vancomycin Random 20.1 ug/ml
--- NOTE | 2024-05-10 06:00 | PTCARENOTE ---
[address] Notified that Hgb 7.2. No s/sx of bleeding. Valproic acid level is low.
--- NOTE | 2024-05-10 07:00 | PTCARENOTE ---
Report given verbally to RN assuming care, Gianni. Questions answered.
[2024-05-10] MEDS: SYMBICORT 160/4.5 MCG INHALER 2 PUFF INH ×2 (07:27→20:46)
--- NOTE | 2024-05-10 07:29 | PTCARENOTE ---
Report given verbally to RN assuming careRicky. Questions answered.
[2024-05-10] MEDS: ROCALTROL 0.25 MCG PO (07:36)
[2024-05-10] MEDS: NOVOLOG FLEXPEN-LOW RESISTANCE 3 UNITS SC (07:36)
[2024-05-10] MEDS: DEPAKOTE SPRINKLE 250 MG PO (07:36)
[2024-05-10] MEDS: NOVOLOG FLEXPEN 3 UNITS SC ×3 (07:36→16:40)
[2024-05-10] MEDS: PACERONE 200 MG PO (07:37)
[2024-05-10] MEDS: VITAMIN B-12 1000 MCG PO (07:37)
[2024-05-10] MEDS: PHOSLO 667 MG PO ×2 (07:37→16:40)
[2024-05-10] MEDS: PROTONIX 40 MG PO (07:37)
[2024-05-10] MEDS: FOLVITE 1 MG PO (07:37)
[2024-05-10 07:46] LABS: Glucose - Point of Care 288 mg/dl (70-99)
[2024-05-10] MEDS: MANNITOL 25% 12.5 GRAMS IV ×2 (08:30→10:38)
--- NOTE | 2024-05-10 08:35 | PHA.VAN.FU ---
Vancomycin Assessment / Plan
- Assessment
Hemodialysis Schedule: MWF
Concomitant Antimicrobials: aztreonam
- Assessment - Therapeutic Drug Monitoring
Random Level: pre-HD = 20.1
- Dosing Plan
Dosing by Level: Re-dose today (Vanc 500mg)
Patient borderline for re-dosing
Given positive blood culture, will re-dose today to help ensure maintains levels through next HD session
- Monitoring Plan
No level(s) ordered at this time: consider level prior to HD Wed
- Follow Up
Pharmacy will continue to follow.
Vancomycin Follow UP
- -
Patient Age: 64
Patient Sex: Female
Vancomycin Day #: 3
Indication: Pulmonary/Respiratory
Requesting Provider: Dr. Mercado
Pertinent Antimicrobial Allergies:
penicillin - unknown
ceftriaxone - unknown
Height / Weight:
Height 5 ft 6 in
Actual Weight 65 kg
Pertinent Past Medical History: ESRD - HD MWF, DM, CHF
- Vital Signs / Lab Results
Temp Pulse Resp BP Pulse Ox
97.6 F 96 18 104/73 98
05/10/24 06:58 05/10/24 08:00 05/10/24 07:31 05/10/24 08:00 05/10/24 07:31
Lab Results - Hematology
05/08/24 05/09/24 05/09/24
13:55 04:22 18:59
WBC 13.5 H 11.7 H 12.1 H
05/10/24
03:45
WBC 8.4
Lab Results - Chemistry
05/08/24 05/09/24 05/09/24
13:55 04:22 18:59
BUN 29 H 38 H 48 H
Creatinine 3.6 H 3.7 H 4.6 H*
Estimated Creat Clear 15 12
Albumin 3.8 3.6
05/10/24
03:45
BUN 54 H
Creatinine 5.6 H*
Estimated Creat Clear 10
Albumin 3.0 L
05/08/24 05/09/24 05/09/24
13:55 09:37 20:27
Lactic Acid 5.2 H* 1.4 5.3 H*
05/10/24 05/10/24 05/10/24
03:45 09:00 15:00
Lactic Acid 2.1 H Cancelled Cancelled
05/10/24
21:00
Lactic Acid Cancelled
Microbiology Results
05/08/24 23:28 Blood Culture - Preliminary
Blood/Venous Positive culture in progress
Gram Stain - Preliminary
05/09/24 04:15 Nasal Screen MRSA (PCR) - Final
Nose MRSA not detected - performed by PCR methodology.
05/08/24 14:07 Influenza Types A & B (FAIZAN) - Final
Nasal Swab Negative for Influenza A & B, NAAT
Negative results must be combined with clinical observations
and patient history.
Nucleic Acid Amplification test (NAAT)performed on the
[employer] platform.
Therapeutic Drug Monitoring
Random Vancomycin 20.1 ug/ml 05/10/24 03:45
[2024-05-10] MEDS: RETACRIT 10000 UNITS IV (08:38)
[2024-05-10] MEDS: SODIUM BICARBONATE IV (08:50)
--- NOTE | 2024-05-10 08:52 | W.PN.NEPH.HD ---
Assessment
-
Seen on HD. awake. no clear complaints. VSS, access ok
GPC BCx, now on vanco
platelets low, hgb low. EPO on HD
Progress Note - Hemodialysis
-
Date of Service: May 10, 2024
Duration: 30 minutes and 3 hours
Potassium Bath: 2
Calcium Bath: 2.5
Opti-Dialyzer: 160
Ultrafiltration: Other (2kg)
Blood Flow: 400
Dialysate Flow: 600
Heparin: no
EPO: 77945 units
[2024-05-10] MEDS: VANCOCIN HCL 500 MG 100 IV (09:52)
[2024-05-10] MEDS: STERILE WATER FOR INJECTION 10 ML IV (10:22)
[2024-05-10] MEDS: AZACTAM 2000 MG IV (10:23)
[2024-05-10] MEDS: NOVOLOG FLEXPEN-LOW RESISTANCE 1 UNITS SC (12:40)
[2024-05-10] MEDS: TYLENOL 650 MG PO (12:40)
[2024-05-10] MEDS: VITAMIN B1 100 MG PO (12:40)
[2024-05-10] MEDS: FEOSOL 325 MG PO (12:40)
--- NOTE | 2024-05-10 12:47 | W.PN.HOSP.TC ---
Addendum entered and electronically signed by Mason Alvarado DO 05/10/24 18:42:
EEG with status epilepticus, neurology consulted and provided VPA load. CT head showed acute left parietal hemorrhage. Neurosurgery consult placed.
Patient is hospice appropriate but as noted, family has been resistant to DNR and comfort measures. 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 Number in chart
Original Note:
Today's Communication/Plan
-
Order echocardiogram
Plan repeat blood cultures
ID consult for antibiotic guidance
EEG
Increase Depakote
Seizure precautions
Assessment / Plan
Assessment / Plan
#Sepsis possibly from infected dialysis port
#Bacteremia with group B streptococcus
-Presented with positive SIRS criteria, blood cultures growing strep agalactiae; cannot rule out endocarditis versus infected permacath
-Only 1 blood culture taken in the ED that returned positive, repeat blood culture also positive
-Suspicion for infected permacath though does not appear infectious, no tenderness or erythema
-MRSA swab returned negative; currently on vancomycin and aztreonam due to allergy history
-Per Reyes criteria, 1 major and 1 to minor criteria for failed indicating possibility of endocarditis
-Remains hemodynamically stable without vasopressors
Plan
-Order echocardiogram to assess for vegetations
-Continue with vancomycin and aztreonam for now due to multiple allergy
-Repeat blood cultures at 48 hours
-Trend CBC and temperature curve
-ID consult for guidance on antibiotics
#Myoclonic spasms
-Does have a history of seizures related to her ICH; on Depakote for seizure prophylaxis
-Developed myoclonic like spasms of her lower extremities here
-Labs on arrival did show Depakote levels were low
-Has retained consciousness, possibly muscle spasms versus partial seizure
Plan
-Order EEG
-Increase Depakote to 500 mg twice daily, repeat levels in 1 month
-As needed benzodiazepines for seizure activity
-Consider neurology consult
#Hematoma
-The hematoma described on CT appears similar to the rectus sheath hematoma previously noted in prior notes.
-Holding anticoagulation due to recurrent ICH
-Trend CBC, consider repeat CT of hemoglobin drops
#ICH
-Most recent intracranial hemorrhage event in March 2024, has had multiple
-Was previously on warfarin; now on hold for recurrent ICH
-No anticoagulation until seen by neurosurgery as OP
#Recent NSTEMI
-Trop 1.5, trending down from recent admission
-will not trend further
-no chest pain
#Chronic HFrecEF
#Pulmonary HTN
#H/O LBBB
-Was recommended by cardiology to continue with conservative measures
-Continue with beta-jeet for GDMT of HFrecEF
-Volume status removal with dialysis sessions
#AFL
#H/O Paroxysmal AF
-Elevated [id number] though also significant ICH and GIB history
-Home medications include amiodarone and carvedilol; now off of warfarin
-Carvedilol was held upon admission for hypotension related to sepsis
-Currently tachycardic but regular; Continue on telemetry
-Poor candidate for DCCV or ablation
#S/P mechanical MVR
#S/P bioprosthetic AVR
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
-Was previously on warfarin however now DC'd due to ICH in 03/2024
#Chronic hypoxemic respiratory failure
-Per records, baseline 2 L oxygen via nasal cannula
-Likely secondary to heart failure and chronic volume overload
-No signs of hypercapnia; no history of ILD or other primary lung disease
-Home medications include bronchodilators as needed; no standing inhaler
#ESRD
#Secondary hyperparathyroidism
#Anemia of chronic kidney disease
-Suspect ESRD associated with T1DM history, possibly multifactorial
-Home medications include calcitriol for bone mineral disease
-Started on MANOLO for anemia, and midodrine for HotN previously
-Nephrology consulted to resume HD schedule
#T1DM
-Suspect that this is associated with ESRD
-Home regimen includes Lantus 10 units daily, Aspart 3U AC; no recent A1c
-Likely well-controlled due to her end-stage renal disease
-Accu-Cheks were added, as well as ISS
-Blood glucose goal 140-180
#Smoldering myeloma
-Unclear if this is still smoldering or has progressed
-Was started on dialysis within the last few months, light chain nephropathy (?)
-Should have repeat SPE, UPEP, Light chains as outpatient with oncology
-No evidence of hypercalcemia or bone lesions
#H/O multiple ICH from falls
-Multiple falls with ICH while on warfarin for AF and mechanical valve
-Currently off of warfarin; remains subtherapeutic
#H/O GIB
-Remains on warfarin due to mechanical valve
#Chronic constipation
-On as needed bowel regimen
#Chronic pain
-Remains on home as needed oxycodone regimen
DVT prophylaxis: Home warfarin, SCDs
Diet: Renal diet
CODE STATUS: Full code, GOC to be had with the daughter
DVT PPX: SCDs
Diet: Standard renal
Code status: full code
Anticipated Discharge: > 48 hours
Subjective/Interval History
-
Date of Service: May 10, 2024
Objective Data
-
Labs:
Laboratory Results
05/10/24 05/10/24
03:45 03:45
WBC 8.4
Hgb 7.2 L
Hct 21.7 L
Plt Count 47 L
Sodium 135
Potassium Cancelled 4.8
Chloride 95 L
Carbon Dioxide 25
BUN 54 H
Creatinine 5.6 H*
Glucose 275 H
Calcium 7.5 L
Total Bilirubin 0.7
AST 20
ALT 15
Alkaline Phosphatase 65
Vital Signs:
Vital Signs
Temp Pulse Resp BP Pulse Ox
97.6 F 116 34 125/111 97
05/10/24 06:58 05/10/24 12:00 05/10/24 12:00 05/10/24 12:00 05/10/24 10:17
I&O
05/09/24 05/10/24 05/11/24
06:59 06:59 06:59
Intake Total 750 / 750 670 / 670
Output Total 0 / 0
Balance 750 / 750 670 / 670
[2024-05-10 12:52] LABS: Glucose - Point of Care 151 mg/dl (70-99)
--- NOTE | 2024-05-10 12:57 | PTCARENOTE ---
Updated assessment trends and vital signs as per IMU. Patient completed HD at this time. Able to assist with am breakfast. Patient still with some noted tremors. Mostly agitated with cares, turns, oral cares and assist from staff. Yelling out for
her daughter at times. Yelling at staff at times. Redirect and refocus. Continue to explain all procedures and protocols. Will follow commands and will yes no at times. Hospitalist team, nephrology team and HD teams in and out at bedside thru
morning. Follow up orders and plan of cares with pharmacy thru day. Ongoing supportive cares.
--- NOTE | 2024-05-10 13:53 | CM ---
CM following re: discharge planning.
Reviewed pt's chart, met with pt and spoke to [facility] liaison.
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 Per liaison, pt will be accepted back to [facility] for a nursing home care. No auth required for pt to return back to [facility].
[facility] nursing report to: [phone]
Fax report to: [phone]
D/C plan: return back to [facility] for a nursing home care.
CM will follow with discharge plan updates as hospitalization progresses
--- NOTE | 2024-05-10 14:55 | CON.NEURO ---
Neuro Assessment/Plan
Assessment
Acute onset change in mental status in patient with numerous risk factors for same including metabolic challenges and recent intracranial hemorrhage with prior seizures.
EEG performed today was suggestive of continuous seizure activity with rhythmic discharges which appeared to be typically posterior or central in location.
Plan
Urgent Valproic acid (VPA) 2000 mg IV now, continue VPA [address] head now
consider continuous EEG
check blood work for additional etiologies, follow VPA levels
Would start aspirin desensitization protocol if CT of head fails to demonstrate continued active hemorrhagic changes; alternatively would initiate clopidogrel due to the question of endocarditis and prior history of atrial fibrillation
Speech therapy evaluation may be of minimal assistance
Will follow
Consultation
Order
Date of Consultation: 05/10/24
Requesting Provider: Hospitalists
Reason for Consult: Status epilepticus
Subjective/Objective
Subjective Data
Date of Service: May 10, 2024
Medical history from professional medical care providers and chart, patient unable to provide same.
She recently suffered multiple falls and intracranial hemorrhage on April 20, 2024 seen at [facility]. There was no surgical intervention and patient was told to hold anticoagulation until follow-up with neurosurgery.
Patient returned to the emergency department from [facility] after she was found to be altered and no longer combative. On arrival in the emergency department she was febrile to 40 degrees C.
As the patient failed to have significant improvement in mentation, an EEG was ordered. When that was found to be abnormal, this consult was placed.
Objective Data
Vital Signs
Temp Pulse Resp BP Pulse Ox
36.9 C 102 24 123/86 96
05/10/24 14:46 05/10/24 14:46 05/10/24 14:46 05/10/24 14:46 05/10/24 14:49
Lab Results
05/10/24 03:45
05/10/24 03:45
PT 22.3 Sec (11.4-14.6) H 05/08/24 14:22
INR 1.94 05/08/24 14:22
Sodium 135 mmol/L (135-145) 05/10/24 03:45
Potassium 4.8 mmol/L (3.5-5.1) 05/10/24 03:45
Potassium Cancelled 05/10/24 03:45
BUN 54 mg/dl (7-17) H 05/10/24 03:45
Glucose 275 mg/dl (70-99) H 05/10/24 03:45
Calcium 7.5 mg/dl (8.4-10.2) L 05/10/24 03:45
Patient Allergies
ARGENIS Inhibitors Allergy (Unknown, Verified 04/30/24 14:44)
Unknown
nitroglycerin Allergy (Unknown, Verified 04/30/24 16:00)
Unknown
Penicillins Allergy (Unknown, Verified 04/30/24 14:44)
Unknown
aspirin Allergy (Verified 04/30/24 20:20)
Hives
ceftriaxone Allergy (Verified 04/30/24 14:44)
Unknown
cyclobenzaprine Allergy (Verified 04/30/24 14:44)
Unknown
gabapentin Allergy (Verified 04/30/24 14:44)
Unknown
hydromorphone Allergy (Verified 04/30/24 14:44)
Unknown
Iodinated Contrast Media Allergy (Verified 04/30/24 14:45)
Hives
isosorbide Allergy (Verified 04/30/24 14:44)
Unknown
lactose Allergy (Verified 04/30/24 14:44)
Unknown
lactulose Allergy (Verified 04/30/24 14:44)
Unknown
metformin Allergy (Verified 04/30/24 14:44)
Unknown
nortriptyline Allergy (Verified 04/30/24 14:44)
Unknown
NSAIDS (Non-Steroidal Anti-Inflamma Allergy (Verified 04/30/24 14:44)
Unknown
pregabalin Allergy (Verified 04/30/24 14:44)
Unknown
tramadol Allergy (Verified 04/30/24 14:44)
Unknown
Review of Systems
-
Unable to obtain full review of systems at this time due to: Aphasia
History Source: Patient
All other systems: Reviewed and negative
Physical Exam
-
General: No Apparent Distress and Appears Stated Age
Eyes: OU Absent Papilledema, Able to visualize OU, Round OU, [place] Conjunctivae and No Ptosis
HEENT: Anicteric and Moist Mucous Membranes
Neck: Full Range of Motion
Respiratory: No Dyspnea
Cardiac: No JVD
GI: Non-distended
Skin: Unremarkable
Extremities: No Clubbing, No Cyanosis and No Edema
Psych: Unable to Assess
Extended Neurological Exam
Mood & Affect: Mood Unremarkable
Attention Span & Concentration: Awake, Interactive, Unable to Perform 2 Step Request and Other (Moderate-severe difficulty with single step requests); Negative Alert
Memory: Unable to Assess
Tremor: Hand Tremor Absent and Head Tremor Absent
Involuntary Movement: Other (rhythmic myoclonic movements of the right lower extremity)
Speech: Moderately Reduced Output and Other (word salad with non-words at times)
Cranial Nerve II: Left Eye: Pupillary Reactivity Unremarkable, Pupillary Size Unremarkable and Visual Vallecillo Grossly Intact
Cranial Nerve II: Right Eye: Pupillary Reactivity Unremarkable, Pupillary Size Unremarkable and Visual Vallecillo Grossly Intact
Cranial Nerves III, IV, : Extraocular Movement: Grossly Intact
Cranial Nerve VII: Facial Symmetry: Normal Facial Symmetry
Cranial Nerve VIII: Hearing: Unremarkable Hearing to Normal Conversational Volume
Cranial Nerves IX, X: Palate Movement: Palate Elevation Symmetric
Cranial Nerve XI: Shoulder Shrug: Unable to Assess
Cranial Nerve XII: Tongue Protusion: Unable to Assess
Muscle Strength, Overall: Absent (right arm, right leg), Otherwise Intact and Other (unclear if movement in left leg, appears to be absent)
Muscle Bulk & Tone: Bulk Unremarkable and Tone Unremarkable
Pronator Drift: Unable to Assess
Deep Tendon Reflexes: Absent Throughout
Cold Sensation: Unable to Assess
Vibration Sensation: Unable to Assess
Touch Sensation: Negative Withdrawal to Pain
Coordination: Unable to Assess
Babinski Sign: Absent Bilaterally
Gait & Station: Unable to Assess
Data Reviewed
-
CT Head: Ordered
EEG: Ordered
Labs: Report Reviewed
Reviewed with: Physician and Nurse
Old Records: Summarized
Medications
-
Active Medications
Generic Name Dose Route Start Last Admin
Trade Name Freq PRN Reason Stop Dose Admin
Acetaminophen 650 mg 05/09/24 01:12 05/10/24 12:40
Acetaminophen 325 Mg Tablet PO 06/06/24 01:11 650 mg
Q4HPRN PRN Administration
mild pain
Albuterol/Ipratropium 3 ml 05/09/24 01:12
Ipratropium 0.5/Albuterol 3 Mg (3 Ml Ampul) INH
R Q6HPRN PRN
sob
Protocol
Amiodarone HCl 200 mg 05/09/24 08:00 05/10/24 07:37
Amiodarone 200 Mg Tablet PO 05/17/24 07:59 200 mg
BID CHRIST Administration
Amiodarone HCl 200 mg 05/17/24 08:00
Amiodarone 200 Mg Tablet PO 06/14/24 07:59
DAILY CHRIST
Atorvastatin Calcium 40 mg 05/09/24 22:00 05/09/24 22:32
Atorvastatin (Lipitor) 40 Mg Tablet PO 06/06/24 21:59 40 mg
HS CHRIST Administration
Aztreonam 2,000 mg 05/09/24 10:00 05/10/24 10:23
Aztreonam 2,000 Mg/10 Ml Vial IV 2,000 mg
Q24H CHRIST Administration
Bisacodyl 10 mg 05/09/24 01:12
Bisacodyl 10 Mg Rectal Suppository RECTAL 06/06/24 01:11
DAILYPRN PRN
constipaiton, no result from m
Budesonide/Formoterol Fumarate 2 puff 05/09/24 08:00 05/10/24 07:27
Symbicort Inhaler 160/4.5 INH 06/06/24 07:59 2 puff
R BID CHRIST Administration
Protocol
Calcitriol 0.25 mcg 05/09/24 08:00 05/10/24 07:36
Calcitriol 0.25 Microgram Capsule PO 06/06/24 07:59 0.25 mcg
DAILY CHRIST Administration
Calcium Acetate 667 mg 05/09/24 08:00 05/10/24 07:37
Calcium Acetate 667 Mg Tablet PO 06/06/24 07:59 667 mg
BID AT 0800,1700 CHRIST Administration
Carvedilol 25 mg 05/09/24 08:00 05/09/24 09:29
Carvedilol 12.5 Mg Tablet PO 06/06/24 07:59 Not Given
BID CHRIST
Cyanocobalamin 1,000 mcg 05/09/24 08:00 05/10/24 07:37
Cyanocobalamin 1,000 Mcg Tablet PO 06/06/24 07:59 1,000 mcg
DAILY CHRIST Administration
Dextrose 12.5 grams 05/09/24 02:00
Dextrose 50% (0.5 Grams/Ml) 50 Ml Syringe IV 06/06/24 01:59
[id number] PRN
hypoglycemia
Protocol
Divalproex Sodium 500 mg 05/10/24 13:13
Divalproex Sodium 125 Mg Sprinkle Capsule PO 06/06/24 07:59
BID CHRIST
Ezetimibe 10 mg 05/09/24 22:00 05/09/24 22:36
Ezetimibe (Zetia) 10 Mg Tablet PO 06/06/24 21:59 10 mg
HS CHRIST Administration
Famotidine 10 mg 05/09/24 22:00 05/09/24 22:33
Famotidine 20 Mg Tablet PO 06/06/24 21:59 10 mg
HS CHRIST Administration
Ferrous Sulfate 325 mg 05/09/24 12:00 05/10/24 12:40
Ferrous Sulfate 325 Mg Tablet PO 06/06/24 11:59 325 mg
NOON CHRIST Administration
Folic Acid 1 mg 05/09/24 08:00 05/10/24 07:37
Folic Acid 1 Mg Tablet PO 06/06/24 07:59 1 mg
DAILY CHRIST Administration
Glucagon 1 mg 05/09/24 02:00
Glucagon 1 Mg Vial IM 06/06/24 01:59
PRN PRN
hypoglycemia - no IV access
Protocol
Vancomycin HCl 1 each/ Device 0 mls @ 0 mls/hr 05/09/24 01:12
IV
PER PROTOCOL CHRIST
As Directed
Insulin Glargine 10 units/ 0.1 mls @ 0 mls/hr 05/09/24 22:00 05/09/24 22:31
Device SC 06/06/24 21:59 0.1 mls
HS CHRIST Administration
As Directed
Valproate Sodium 2,000 mg/ 70 mls @ 55 mls/hr 05/10/24 14:52
Sodium Chloride IV 05/10/24 16:08
NOW STA
Insulin Aspart 3 units 05/09/24 07:30 05/10/24 12:39
Insulin Aspart (100 Units/Ml) 3 Ml Flexpen SC 06/06/24 07:29 3 units
AC CHRIST Administration
Insulin Aspart 0 units 05/09/24 07:30 05/10/24 12:40
Insulin Aspart Low Resistance 300 Units/3 Ml Pen.Injctr SC 06/06/24 07:29 1 units
AC CHRIST Administration
Protocol
Lorazepam 2 mg 05/10/24 13:14
Lorazepam 2 Mg/Ml Vial IV 06/07/24 13:13
Q4HPRN PRN
Seizure
Melatonin 3 mg 05/09/24 01:12
Melatonin 3 Mg Tablet PO
HSPRN PRN
sleep
Midodrine 10 mg 05/09/24 01:12
Midodrine 5 Mg Tablet PO 06/06/24 01:11
Q4HPRN PRN
for SBP < 90
Pantoprazole Sodium 40 mg 05/09/24 08:00 05/10/24 07:37
Pantoprazole 40 Mg Delayed Release Tablet PO 06/06/24 07:59 40 mg
DAILY CHRIST Administration
Polyethylene Glycol 17 grams 05/09/24 01:12
Polyethylene Glycol Powder 17 Grams Packet PO 06/06/24 01:11
DAILYPRN PRN
constipation
Sodium Chloride 0 flush 05/08/24 23:00
Sodium Chloride 0.9% (Flush) Syringe IV 06/05/24 22:59
PER PROTOCOL CHRIST
Sodium Chloride 0 ml 05/10/24 14:00
Sodium Chloride 0.9% (Preservative Free) 10 Ml Vial IV 06/07/24 13:59
PRN PRN
IV Lorazepam dilution
Protocol
Sterile Water 10 ml 05/09/24 10:00 05/10/24 10:22
Sterile Water For Injection 10 Ml Vial IV 06/06/24 09:59 10 ml
Q24H CHRIST Administration
Thiamine HCl 100 mg 05/09/24 12:00 05/10/24 12:40
Thiamine 100 Mg Tablet PO 06/06/24 11:59 100 mg
NOON CHRIST Administration
Vitamin B Complex/Vit C/Folic Acid 1 capsule 05/09/24 22:00 05/09/24 22:33
Renal Cap (Nephrocap) Capsule PO 06/06/24 21:59 1 capsule
HS CHRIST Administration
Home Medications
�Medication �Instructions �Recorded
acetaminophen 325 mg tablet 650 mg PO Q4HPRN PRN mild pain 04/30/24
(Tylenol)
atorvastatin 40 mg tablet (Lipitor) 40 mg PO HS High Cholesterol 04/30/24
bisacodyl 10 mg rectal suppository 10 mg IA DAILYPRN PRN 04/30/24
(Dulcolax (bisacodyl)) constipaiton, no result from mom
calcitriol 0.25 mcg capsule 0.25 mcg PO DAILY 04/30/24
carvedilol 25 mg tablet (Coreg) 25 mg PO BID Heart 04/30/24
Disease/Condition
cyanocobalamin (vitamin B-12) 1,000 mcg PO DAILY Supplement 04/30/24
1,000 mcg tablet
ezetimibe 10 mg tablet (Zetia) 10 mg PO HS High Cholesterol 04/30/24
ferrous sulfate 325 mg (65 mg 325 mg PO NOON Supplement 04/30/24
iron) tablet
folic acid 1 mg tablet 1 mg PO DAILY Supplement 04/30/24
insulin glargine 100 unit/mL (3 10 unit SC HS Diabetes 04/30/24
mL) subcutaneous pen (Lantus
Solostar U-100 Insulin)
ipratropium 0.5 mg-albuterol 3 mg 3 ml inhalation R Q6HPRN PRN sob 04/30/24
(2.5 mg base)/3 mL nebulization
soln
melatonin 1 mg tablet 1 mg PO HSPRN PRN sleep 04/30/24
ondansetron 4 mg disintegrating 4 mg PO Q6HPRN PRN nausea 04/30/24
tablet
pantoprazole 40 mg tablet,delayed 40 mg PO DAILY Gastrointestinal 04/30/24
release (Protonix) Issue
polyethylene glycol 3350 17 gram 17 g PO DAILYPRN PRN constipation 04/30/24
oral powder packet (Miralax)
thiamine HCl (vitamin B1) 100 mg 100 mg PO NOON Supplement 04/30/24
tablet
insulin aspart U-100 100 unit/mL 3 unit (0.03 mL) SC AC 30 days 05/06/24
(3 mL) subcutaneous pen #2.7 mL
albuterol 90 mcg-budesonide 80 1 inh inhalation R Q8HPRN PRN sob 05/08/24
mcg/actuation HFA aerosol inhaler
amiodarone 200 mg tablet 200 mg PO BID Arrhythmia 05/08/24
budesonide-formoterol HFA 160 2 puff inhalation R BID 05/08/24
mcg-4.5 mcg/actuation aerosol Lung/Breathing Issues
inhaler
calcium acetate 667 mg tablet 667 mg PO BID Supplement 05/08/24
divalproex 125 mg capsule,delayed 250 mg PO BID 05/08/24
release sprinkle
famotidine 10 mg tablet 10 mg PO HS Gastrointestinal Issue 05/08/24
vitamin B complex and vitamin C 1 cap PO HS Supplement 05/08/24
no.20-folic acid 1 mg capsule
(Renal Caps)
Past History
Past History
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
seizures,)
ED Past Surgical History: Cardiac (mechanical mitral valve replacement, bioprosthetic aortic valve replacement) and Other (hemodialysis via PermCath)
Social History
Tobacco: Other (unknown)
Alcohol: Other (unknown)
Drug: Other (unknown)
Living: [facility]
Employment: Not employed
Family History
Family History: Unable to obtain
--- NOTE | 2024-05-10 15:08 | CON.ID ---
Consultation
-
Date/Time Consultation Requested: May 10, 2024 1330
Date/Time Consultation Performed: May 10, 2024 1510
Requesting Provider: Dr. Mason Alvarado
Performing Provider: Dr. Debora Vallecillo
Reason for Consultation: Bacteremia, multiple antibiotic allergies
Chief Complaint / Past History
Chief Complaint
Fever
History of Present Illness
History obtained from review of medical records since patient has cognitive impairment and unable to provide a full meaningful history. She is a 64-year-old female with diabetes mellitus, COPD, CAD, heart failure with reduced EF, smoldering
multiple myeloma, ESRD on HD via catheter, bioprosthetic aortic valve replacement, mechanical mitral valve replacement was on Coumadin which has been on hold due to recent fall with intracranial hemorrhage, rectal sheath hematoma and GI bleed
March 2024 hospitalized at [facility] then discharged to [facility] April 29. She was recently admitted to [facility] April 30 to May 06 with CHF exacerbation and persistent supratherapeutic INR. She developed fever and
lethargy at SNF and therefore was readmitted to [facility] May 08. Temperature was 104.5, white count 13.5. She was started on vancomycin and aztreonam. From record patient with possible anaphylaxis leading to cardiac arrest due to
ceftriaxone December 2023. Admission blood culture 1 out of 1 positive for group B streptococcus. Repeat blood culture on May 09 positive for GPC in chains. Patient unable to provide any history.
Past History
Additional Past Medical History:
Cognitive impairment
Diabetes mellitus
End-stage renal disease on hemodialysis
Smoldering multiple myeloma
COPD
Chronic hypoxic respiratory failure on 2L O2
atrial fibrillation
CAD
Heart failure with reduced EF
hx ICD placement 2006 subsequently removed 2015 due to endocarditis
CVA
Chronic pain
Seizure
Intracranial hemorrhage amd rectal sheath hematoma after Fall04/20/24
Mechanical mitral valve replacement 2018 (Coumadin on hold due to bleed)
Bioprosthetic aortic valve replacement 2006
Allergy History:
ARGENIS Inhibitors Allergy (Unknown, Verified 04/30/24 14:44)
Unknown
nitroglycerin Allergy (Unknown, Verified 04/30/24 16:00)
Unknown
Penicillins Allergy (Unknown, Verified 04/30/24 14:44)
Unknown
aspirin Allergy (Verified 04/30/24 20:20)
Hives
ceftriaxone Allergy (Verified 04/30/24 14:44)
Unknown
cyclobenzaprine Allergy (Verified 04/30/24 14:44)
Unknown
gabapentin Allergy (Verified 04/30/24 14:44)
Unknown
hydromorphone Allergy (Verified 04/30/24 14:44)
Unknown
Iodinated Contrast Media Allergy (Verified 04/30/24 14:45)
Hives
isosorbide Allergy (Verified 04/30/24 14:44)
Unknown
lactose Allergy (Verified 04/30/24 14:44)
Unknown
lactulose Allergy (Verified 04/30/24 14:44)
Unknown
metformin Allergy (Verified 04/30/24 14:44)
Unknown
nortriptyline Allergy (Verified 04/30/24 14:44)
Unknown
NSAIDS (Non-Steroidal Anti-Inflamma Allergy (Verified 04/30/24 14:44)
Unknown
pregabalin Allergy (Verified 04/30/24 14:44)
Unknown
tramadol Allergy (Verified 04/30/24 14:44)
Unknown
Medications Reviewed: Yes
Current Antibiotics:
Aztreonam d2
Vancomycin d3
Social History
Tobacco: Non-Smoker
Alcohol: None
Drug: None
Personal:
Living: [facility] Living ([facility])
Family History
Family History: Not Pertinent
Review of Systems
Review of Systems
Unable to obtain due to cognitive impairment
Vital Signs
Temp Pulse Resp BP Pulse Ox
98.4 F 102 24 123/86 96
05/10/24 14:46 05/10/24 14:46 05/10/24 14:46 05/10/24 14:46 05/10/24 14:49
Physical Exam
Physical Exam
Constitutional: Chronically Ill
Head: Other (No frontal or maxillaru sinus tenderness)
Eyes: No Conjunctival Hemorrhage and Sclera Anicteric
Cardiovascular: Regular Rate and S1/S2; Negative Murmur
Pulmonary: Clear
Gastrointestinal: Soft, Non Tender, Non Distended and Normal Bowel Sounds
Genito-Urinary: Negative CVA Tenderness
Extremities: Negative Edema, Splinter Hemorrhage or [place] Lesions
Skin: Negative Rash
Neurological: Awake; Negative Meningeal Signs
Lab / Diagnostic Study Results
05/10/24 03:45
05/10/24 03:45
Abs Immat Gran (auto) 0.1 10^3/uL (0-0.05) H 05/08/24 13:55
Absolute Neuts (auto) 12.4 10^3/uL (1.4-6.5) H 05/08/24 13:55
Absolute Lymphs (auto) 0.5 10^3/uL (1.2-3.4) L 05/08/24 13:55
Absolute Monos (auto) 0.5 10^3/uL (0.1-0.6) 05/08/24 13:55
Absolute Basos (auto) 0.0 10^3/uL (0-0.2) 05/08/24 13:55
Immature Gran % 0.7 % (0-0.5) H 05/08/24 13:55
Neutrophils % 91.6 % (42.2-75.2) H 05/08/24 13:55
Lymphocytes % 3.7 % (20.5-51.1) L 05/08/24 13:55
Monocytes % 3.7 % (1.7-9.3) 05/08/24 13:55
Eosinophils % 0.1 % (0-6) 05/08/24 13:55
Basophils % 0.2 % (0-2) 05/08/24 13:55
PT 22.3 Sec (11.4-14.6) H 05/08/24 14:22
INR 1.94 05/08/24 14:22
Lactic Acid Cancelled 05/10/24 21:00
Procalcitonin 38.63 ng/ml (0.0-0.25) H* 05/09/24 04:22
Microbiology Results
Micro:
05/08/24 23:28 Blood Culture - Preliminary
Blood/Venous Streptococcus agalactiae
Gram Stain - Preliminary
05/09/24 09:37 Blood Culture - Preliminary
Blood/Venous Positive culture in progress
Gram Stain - Preliminary
05/09/24 04:15 Nasal Screen MRSA (PCR) - Final
Nose MRSA not detected - performed by PCR methodology.
05/08/24 14:07 Influenza Types A & B (FAIZAN) - Final
Nasal Swab Negative for Influenza A & B, NAAT
Negative results must be combined with clinical observations
and patient history.
Nucleic Acid Amplification test (NAAT)performed on the
[employer] platform.
05/09/[address]: No evidence of pneumonia. Consider congestive heart failure or volume overload.
05/08/24 CT a/p: 5 x 10 x 15 cm hematoma in the subcutaneous tissues of the right anterolateral pelvis extending down to the inguinal region 2). Small bilateral pleural effusions with associated compressive atelectasis at the lung bases.
Assessment / Plan
# Group B strep bacteremia 2 sets
# s/p Sepsis; fever, leukocytosis resolved
# ESRD on HD
# hx of mechanical MVR (Coumadin on hold due to recent ICH)
# hx of bio - AVR
# Allergy to ceftriaxone (cardiac-arrest) and PCN
- Source of GBS bacteremia unclear at this time
Possible source include endocarditis violette in setting of prosthetic valves vs discitis (CT T7-T8 erosive changes endplate), HD catheter infection
- Repeat bcx x 2 in am
- Agree with repeat TTE. If neg consider BETTY. Although pt is not surgical candidate, BETTY can help with length of abx therapy and/or need for chronic suppressive therapy.
- MRI T- spine to assess for discitis. Check CRP
- DC aztreonam.
- Continue Vancomycin.
# Conditions prior to admission
Cognitive impairment
Diabetes mellitus
End-stage renal disease on hemodialysis
Smoldering multiple myeloma
COPD
Chronic hypoxic respiratory failure on 2L O2
atrial fibrillation
CAD
Heart failure with reduced EF
hx ICD placement 2006 subsequently removed 2015 due to endocarditis
CVA
Chronic pain
Seizure
Intracranial hemorrhage amd rectal sheath hematoma after Fall04/20/24
Mechanical mitral valve replacement 2018 (Coumadin on hold due to bleed)
Bioprosthetic aortic valve replacement 2006
[2024-05-10] MEDS: DEPACON 70 MG IV (15:17)
--- NOTE | 2024-05-10 15:51 | PTCARENOTE ---
Update and assessment at bedside with Neurology, medications as ordered with ct scan follow up awaiting. Dr Vallecillo at bedside with patient will follow up cultures labs and antibiotics as ordered. Continue bedside rounds.
[2024-05-10 16:28] LABS: Glucose - Point of Care 128 mg/dl (70-99)
[2024-05-10] MEDS: NOVOLOG FLEXPEN-LOW RESISTANCE SC (16:40)
--- NOTE | 2024-05-10 17:18 | CON.INTV ---
Consultation
Consultation Request
Date/Time Consultation Requested: 05/10/2024 - 165
Date/Time Consultation Performed: 05/10/2024 - 170
Requesting Provider: Dr. Alvarado
Performing Provider: Dr. Campbell
Reason for Consultation: Concern for status epilepticus
Medical History
-
Chief Complaint: Fever, diaphoretic with right upper thigh and lower right abdomen hematoma
History of Present Illness:
64-year-old female with a past medical history of ESRD on HD, DM type I, chronic hypoxic respiratory failure on home O2 at 2 L/min, history of mechanical MVR + bioprosthetic AVR, history of paroxysmal A-fib previously on Coumadin (stopped s/p recent
ICH), chronic HFpEF, history of seizures and chronic pain syndrome who presented from [facility] with fever, diaphoresis and bruising on the RLQ + right upper thigh. She was initially admitted to telemetry and treated for sepsis
with possible pneumonia as initial CXR showed diffuse groundglass opacities. Subsequent CT chest on 04/30/2024 showed fluid in both fissures bilaterally with bilateral pleural effusions (slightly improved compared to recent CT chest on 04/30/2024),
with no evidence for pneumonia. She was continued on antibiotics for GBS bacteremia. On 05/09/2024 she developed bilateral jerking movements and treated with Valium. She was then transferred to the IMU for further care. EEG obtained on 05/10/2024
showing concern for status epilepticus. Patient then given AED with valproic acid and transferred to the ICU for further care.
When I saw the patient she was resting in bed, occasionally awakening and being combative, using expletives and clearly is confused. Heart rate 129, saturating 96% on room air and BP 119/73.
PMHx: ESRD on HD via right anterior chest wall permacath, DM type I, anemia chronic kidney disease, chronic hypoxic respiratory failure on home O2 at 2 L/min, s/p mechanical MVR, s/p bioprosthetic AVR, history of paroxysmal A-fib previously on
Coumadin (removed s/p recent ICH), smoldering myeloma with chronic anemia/thrombocytopenia, CHF, history of seizures, chronic pain syndrome
PSHx: Mechanical mitral valve, bioprosthetic aortic valve,
Past Medical History
Past Medical History: Other (Above as per HPI)
Past Surgical History: Other (Above as per HPI)
Social History
Tobacco: Non-smoker
Alcohol: None
Drug: None
Personal: Single
Living: [facility]
Family History
Family History: Reviewed & Not Pertinent
Allergies / Home Medications
Allergies
Allergy/AdvReac Type Severity Reaction Status Date / Time
ARGENIS Inhibitors Allergy Unknown Unknown Verified 04/30/24 14:44
nitroglycerin Allergy Unknown Unknown Verified 04/30/24 16:00
Penicillins Allergy Unknown possible Verified 05/10/24 15:51
anaphylaxis,
cardiac
arrest
01/12
aspirin Allergy Hives Verified 04/30/24 20:20
ceftriaxone Allergy Unknown Verified 04/30/24 14:44
cyclobenzaprine Allergy Unknown Verified 04/30/24 14:44
gabapentin Allergy Unknown Verified 04/30/24 14:44
hydromorphone Allergy Unknown Verified 04/30/24 14:44
Iodinated Contrast Media Allergy Hives Verified 04/30/24 14:45
isosorbide Allergy Unknown Verified 04/30/24 14:44
lactose Allergy Unknown Verified 04/30/24 14:44
lactulose Allergy Unknown Verified 04/30/24 14:44
metformin Allergy Unknown Verified 04/30/24 14:44
nortriptyline Allergy Unknown Verified 04/30/24 14:44
NSAIDS (Non-Steroidal Allergy Unknown Verified 04/30/24 14:44
Anti-Inflamma
pregabalin Allergy Unknown Verified 04/30/24 14:44
tramadol Allergy Unknown Verified 04/30/24 14:44
Home Medications
�Medication �Instructions �Recorded �Confirmed �Last Taken �Type
acetaminophen 325 mg tablet 650 mg PO Q4HPRN PRN mild pain 04/30/24 05/08/24 Unknown History
(Tylenol)
atorvastatin 40 mg tablet (Lipitor) 40 mg PO HS High Cholesterol 04/30/24 05/08/24 Unknown History
bisacodyl 10 mg rectal suppository 10 mg [place] DAILYPRN PRN 04/30/24 05/08/24 Unknown History
(Dulcolax (bisacodyl)) constipaiton, no result from mom
calcitriol 0.25 mcg capsule 0.25 mcg PO DAILY 04/30/24 05/08/24 Unknown History
carvedilol 25 mg tablet (Coreg) 25 mg PO BID Heart 04/30/24 05/08/24 Unknown History
Disease/Condition
cyanocobalamin (vitamin B-12) 1,000 mcg PO DAILY Supplement 04/30/24 05/08/24 Unknown History
1,000 mcg tablet
ezetimibe 10 mg tablet (Zetia) 10 mg PO HS High Cholesterol 04/30/24 05/08/24 Unknown History
ferrous sulfate 325 mg (65 mg 325 mg PO NOON Supplement 04/30/24 05/08/24 Unknown History
iron) tablet
folic acid 1 mg tablet 1 mg PO DAILY Supplement 04/30/24 05/08/24 Unknown History
insulin glargine 100 unit/mL (3 10 unit SC HS Diabetes 04/30/24 05/08/24 Unknown History
mL) subcutaneous pen (Lantus
Solostar U-100 Insulin)
ipratropium 0.5 mg-albuterol 3 mg 3 ml inhalation R Q6HPRN PRN sob 04/30/24 05/08/24 Unknown History
(2.5 mg base)/3 mL nebulization
soln
melatonin 1 mg tablet 1 mg PO HSPRN PRN sleep 04/30/24 05/08/24 Unknown History
ondansetron 4 mg disintegrating 4 mg PO Q6HPRN PRN nausea 04/30/24 05/08/24 Unknown History
tablet
pantoprazole 40 mg tablet,delayed 40 mg PO DAILY Gastrointestinal 04/30/24 05/08/24 Unknown History
release (Protonix) Issue
polyethylene glycol 3350 17 gram 17 g PO DAILYPRN PRN constipation 04/30/24 05/08/24 Unknown History
oral powder packet (Miralax)
thiamine HCl (vitamin B1) 100 mg 100 mg PO NOON Supplement 04/30/24 05/08/24 Unknown History
tablet
insulin aspart U-100 100 unit/mL 3 unit (0.03 mL) SC AC 30 days 05/06/24 05/08/24 Unknown Rx
(3 mL) subcutaneous pen #2.7 mL
albuterol 90 mcg-budesonide 80 1 inh inhalation R Q8HPRN PRN sob 05/08/24 05/08/24 Unknown History
mcg/actuation HFA aerosol inhaler
amiodarone 200 mg tablet 200 mg PO BID Arrhythmia 05/08/24 05/08/24 Unknown History
budesonide-formoterol HFA 160 2 puff inhalation R BID 05/08/24 05/08/24 Unknown History
mcg-4.5 mcg/actuation aerosol Lung/Breathing Issues
inhaler
calcium acetate 667 mg tablet 667 mg PO BID Supplement 05/08/24 05/08/24 Unknown History
divalproex 125 mg capsule,delayed 250 mg PO BID 05/08/24 05/08/24 Unknown History
release sprinkle
famotidine 10 mg tablet 10 mg PO HS Gastrointestinal Issue 05/08/24 05/08/24 Unknown History
vitamin B complex and vitamin C 1 cap PO HS Supplement 05/08/24 05/08/24 Unknown History
no.20-folic acid 1 mg capsule
(Renal Caps)
Review of Systems
-
Unable to Obtain full review of systems at this time due to: Acuity
Vitals / Labs / Diagnostic Testing
Vital Signs
Temp Pulse Resp BP Pulse Ox
98.4 F 120 28 113/79 96
05/10/24 14:46 05/10/24 17:24 05/10/24 17:00 05/10/24 17:24 05/10/24 14:49
Lab Data
05/10/24 03:45
05/10/24 03:45
Microbiology
05/08/24 23:28 Blood/Venous Blood Culture - Preliminary
Streptococcus agalactiae
05/08/24 23:28 Blood/Venous Gram Stain - Preliminary
05/09/24 09:37 Blood/Venous Blood Culture - Preliminary
Positive culture in progress
05/09/24 09:37 Blood/Venous Gram Stain - Preliminary
05/09/24 04:15 Nose Nasal Screen MRSA (PCR) - Final
MRSA not detected - performed by PCR methodology.
05/08/24 14:07 Nasal Swab Influenza Types A & B (FAIZAN) - Final
Negative for Influenza A & B, NAAT
Negative results must be combined with clinical observations
and patient history.
Nucleic Acid Amplification test (NAAT)performed on the
[employer] platform.
Diagnostic Testing:
Physical Exam
-
HEENT: Normocephalic and Anicteric
Cardiovascular: S1/S2, Peripheral Edema (trace LE edema bilaterally) and Other (Tachycardic)
Respiratory: Wheeze (negative), Rales (negative), Rhonchi (negative) and Non-Labored Respirations
GI: Soft, Non Distended, Non Tender and Normal Bowel Sounds
Neurology: Tremors (positive) and Other (Labile with lethargy and combativeness)
Skin: Warm and Dry
General: Respiratory Distress (negative), Comfortable, Fever (negative) and Chills (negative)
Assessment
-
Assessment: 64-year-old female with a past medical history of ESRD on HD, DM type I, chronic hypoxic respiratory failure on home O2 at 2 L/min, history of mechanical MVR + bioprosthetic AVR, history of paroxysmal A-fib previously on Coumadin
(stopped s/p recent ICH), chronic HFpEF, history of seizures and chronic pain syndrome who presented from [facility] with fever, diaphoresis and bruising on the RLQ + right upper thigh. She was initially admitted to telemetry and
treated for sepsis with possible pneumonia as initial CXR showed diffuse groundglass opacities. Subsequent CT chest on 04/30/2024 showed fluid in both fissures bilaterally with bilateral pleural effusions (slightly improved compared to recent CT
chest on 04/30/2024), with no evidence for pneumonia. She was continued on antibiotics due to GBS bacteremia. On 05/09/2024 she developed bilateral jerking movements and treated with Valium. She was then transferred to the IMU for further care.
EEG obtained on 05/10/2024 showing concern for status epilepticus. Patient then given AED with valproic acid and transferred to the ICU for further care.
Chronic conditions [employer]: ESRD on HD via right anterior chest wall permacath, DM type I, anemia chronic kidney disease, chronic hypoxic respiratory failure on home O2 at 2 L/min, s/p mechanical MVR, s/p bioprosthetic AVR, history of paroxysmal A-fib
previously on Coumadin (removed s/p recent ICH), smoldering myeloma with chronic anemia/thrombocytopenia, CHF, history of seizures, chronic pain syndrome
Impression:
#Altered mental status with concern for status epilepticus
#Acute on chronic HFpEF exacerbation
#GBS bacteremia
#Lactic acidosis due to sepsis
#Acute on chronic thrombocytopenia likely due to sepsis
#DM type I complicated by hyperglycemia (HbA1c: 6.4 on 05/01/2024)
#History of A-fib on amiodarone
#ESRD on HD via right anterior chest wall permacath
#CAD with history of NSTEMI
#History of CVA with recent ICH
#History of mechanical mitral valve replacement + bioprosthetic aortic valve replacement with moderate�severe TR and severe pulmonary hypertension (per TTE from 04/30/2024)
#History of COPD
#History of fall with rectus sheath hematoma and ICH
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
#Cognitive impairment
#Smoldering multiple myeloma
#Chronic anemia
Plan:
- Antiepileptic drugs per neurology
- Valproic acid started and follow VPA levels
- Awaiting CT head to rule out intracranial hemorrhage
- If no ICH seen on CT head, then start aspirin. She has an allergy to aspirin in the past with hives as a reaction. Will start aspirin desensitization protocol if no bleed seen on CT head
-If ICH seen on CT head, consult neurosurgery and consider mannitol vs hypertonic saline if increased ICP with midline shift
- Consider continuous EEG, deferred to neurology
- Continue fluid removal per HD
- Maintain SpO2 88-95% (reported Hx of COPD) with supplemental O2 and wean down as tolerated
- Maintain net negative fluid balance as tolerated
- Continue with empiric antibiotics, currently on IV vancomycin + aztreonam
- ID consulted and recommendations appreciated
- Blood cultures from 05/08/2024 have grown group B strep; blood culture from 05/09/2024 is also positive with GPCs and chains --> follow-up species
- Source of GBS bacteremia is unclear, with HD catheter infection and prosthetic aortic valves being top source possibilities; discitis is also possible - MRI T-spine is pending. Repeat TTE is also pending and if negative will consider BETTY
- Maintain MAP>65
- Replete electrolytes with K>4, Mg>2
- Maintain euglycemia with goal BG 140-180
- Trend H/H and transfuse if needed to keep Hb>7g/dL; keep plt>20k, unless there is concern for bleeding then keep plt>50k
- prn nebulized bronchodilators - not currently bronchospastic
- DVT ppx: SCDs for now until CT head is read
Critical care statement: A total of 42 minutes of critical care time was provided for this patient today. This includes management of unstable vital signs, evaluation of the patient at bedside, reviewing the patient's pertinent medical records
including radiographs, microbiology, laboratory evaluations, and discussion with primary team, consultants, pharmacy, nutrition, physical therapy, case management, charge nurse, critical care nursing, and respiratory therapy.
Data:
CT Chest w/o Contrast 05/09/2024:
No evidence of pneumonia.
Findings as described. Consider congestive heart failure or volume overload.
More localized opacity suggested in the mid to upper lung zones on recent chest radiograph appears to correspond to increased attenuation secondary to fluid within the major fissure, right greater than left.
Stable appearance at T7-8. As stated previously, possibly degenerative in nature, though recommend clinical correlation to exclude the possibility of infection.
[2024-05-10] MEDS: COREG 6.25 MG PO ×2 (17:24→19:24)
--- NOTE | 2024-05-10 17:31 | PTCARENOTE ---
Await CT scan team. Updated plan of cares. VS as documented. Medications via Emar. Patient neuro status unchanged. Patient yelling out at times. Some commands some interaction with staff still with twitching patter. Wire Twister team at bedside.
Updates plan of cares, continue skin cares. Patient return to yelling at staff and pushing staff away when attempting to turn. Prep for ct scan now.
--- NOTE | 2024-05-10 17:45 | EEG.RPT ---
Electroencephalogram Report
Recording
Date of EE05/10/24
Type of EEG: Routine
Length of EEG recordin minutes
Done with Video Recording: Yes
Patient Status: Inpatient
Recording Conditions: Awake and Drowsy
Hyperventilation Performed: No
Photic Stimulation Performed: Yes
Report
GREATER THAN 1 HOUR REPORT
GREATER THAN 1 HOUR EEG INTERPRETATION:
Severely abnormal EEG for age in wakefulness through drowsiness due to nearly continuous 2/s high amplitude left central discharges consistent with periodic rhythmic discharges
CLINICAL CORRELATION:
This study was suggestive of status epilepticus based on sudden discontinuance of the above listed periodic rhythmic discharges. Immediate clinical correlation is advised.
METHODS:
A 21 channel digitized electroencephalogram (EEG) was performed in the Clinical Neurophysiology Laboratory. The 10/20 international system of electrode placement was used with ECG and lateral/vertical eye movements recorded. Video was recorded. The
[employer] quantitative EEG system was utilized.
Quality of study
Good
Background
Rarely, there was an unremarkable, well maintained, low amplitude theta-frequency and unclear anterior-posterior voltage gradient
Sleep
Drowsiness present
Photic Stimulation
Failed to activate the record.
ECG
Normal sinus rhythm
--- NOTE | 2024-05-10 18:27 | PTCARENOTE ---
Update with auto clutch specialist post ct scan at bedside. Update with critical care team, hospitalist and neurology await updated plan of cares. NPO since lunch today secondary to testing. Will await follow up orders and plan.
[2024-05-10] MEDS: DEPAKOTE SPRINKLE 500 MG PO (19:24)
--- NOTE | 2024-05-10 19:30 | PTCARENOTE ---
Attempted to clarify amio BID/amio daily order with Pharmacy. Unsuccessful in clarifying order.
--- NOTE | 2024-05-10 20:00 | PTCARENOTE ---
Pt received start of shift, HR ST w/ BBB on telemetry. AAOx0. Pt responds to Chiquita, but when prompted states her name is Lottie. Pt cannot state where she is or when it is. Pt occasionally with confused conversation and expressive aphasia, unable
to fully finish sentences. Pupils b/l 6mm, reactive. Blinks spontaneously. Pt w/ rhythmic jerking in b/l LE. R arm residual from previous CVA, hand grasp absent. Pt on RA, SpO2 97%. Shallow breathing. Anuric. Afebrile.
[2024-05-10] MEDS: LANTUS 0.1 UNITS SC (23:33)
[2024-05-10] MEDS: PEPCID 10 MG PO (23:35)
[2024-05-10] MEDS: ZETIA 10 MG PO (23:35)
[2024-05-10] MEDS: LIPITOR 40 MG PO (23:35)
[2024-05-10] MEDS: NEPHROCAP 1 CAPSULE PO (23:35)
[2024-05-10 23:45] LABS: Glucose - Point of Care 106 mg/dl (70-99)
[2024-05-11] VITALS (49 sets, daily range): BP systolic 71–143; BP diastolic 46–99; BMI 22.5
--- NOTE | 2024-05-11 00:54 | PTCARENOTE ---
Pt reassessed. L arm IV not functioning, removed and new line placed. Pt tolerating pills w/ applesauce. Pt obeying simple commands like open your mouth and open your eyes. Pt agitated. Assessment otherwise unchanged.
[2024-05-11 05:04] LABS: % Basophils 0.1 % (0-2); % Immature Granulocytes 0.7 % (0-0.5); % Lymphocytes 9.3 % (20.5-51.1); % Monocytes 7.4 % (1.7-9.3); % Neutrophils 82.5 % (42.2-75.2); Absolute Immature Granulocytes 0.1 10^3/uL (0-0.05); Absolute Lymphocytes 0.9 10^3/uL (1.2-3.4); Absolute Monocytes 0.7 10^3/uL (0.1-0.6); Absolute Neutrophils 7.5 10^3/uL (1.4-6.5); Hematocrit 23.5 % (37.0-47.0); Hemoglobin 7.9 g/dL (12.0-16.0); Mean Corp Hgb Conc. 33.6 g/dL (33.0-37.0); Mean Corpuscular Hgb 31.7 pg (27.0-31.0); Mean Corpuscular Volume 94.4 fL (81.0-99.0); Mean Platelet Volume 12.1 fL (7.4-10.4); Nucleated Red Blood Cells % 1.2 %; Platelet Count 62 10^3/uL (130-400); Red Blood Cell Count 2.49 10^6/uL (4.20-5.40); Red Cell Dist. Width 19.9 % (11.5-14.5); White Blood Cell Count 9.1 10^3/uL (4.8-10.8)
[2024-05-11 05:20] LABS: Blood Urea Nitrogen 31 mg/dl (7-17); Calcium 7.6 mg/dl (8.4-10.2); Carbon Dioxide 26 mmol/L (22-30); Chloride 97 mmol/L (98-107); Estimated Creatinine Clearance 16 ml/min; Glucose 102 mg/dl (70-99); Sodium 137 mmol/L (135-145); eGFR 14.67
--- NOTE | 2024-05-11 05:31 | PTCARENOTE ---
Labs drawn. Mouth brushed w/ suction swab. CHG bath. New gown. Reassessed, no change since last assessment.
--- NOTE | 2024-05-11 07:45 | W.PN.NEURO.1 ---
Addendum entered and electronically signed by John Marrero MD 05/11/24 16:21:
Presence of vasogenic edema is an appropriate diagnosis and untreatable at this time
Original Note:
Today's Communication / Plan
-
Repeat greater than 1 hour EEG to determine if improvement in electrical function of the brain, change director to continuous EEG if appears abnormal
Add lacosamide if patient continues to demonstrate epileptiform changes
follow VPA levels
Would not start aspirin desensitization protocol at this time based on continued hemorrhagic components, patient will need to eventually be returned to use of warfarin due to prosthetic valve
Re-image in [address] of head for determination of improvement
DVT prophylaxis with enoxaparin despite ICH
Neuro Assessment/Plan
Assessment
Acute onset change in mental status in patient with numerous risk factors for same including metabolic challenges and recent intracranial hemorrhage with prior seizures.
Initial EEG performed suggestive of near�continuous rhythmic discharges which appeared to be typically left posterior or central in location.
Intracranial hemorrhage demonstrated by CT of the head, with subacute and acute blood
Plan
Repeat greater than 1 hour EEG to determine if improvement in electrical function of the brain, change director to continuous EEG if appears abnormal
Add lacosamide if patient continues to demonstrate epileptiform changes
follow VPA levels
Would not start aspirin desensitization protocol at this time based on continued hemorrhagic components, patient will need to eventually be returned to use of warfarin due to prosthetic valve
Re-image in [address] of head for determination of improvement
DVT prophylaxis with enoxaparin despite ICH
Will follow
Subjective/Objective
Subjective Data
Date of Service: May 11, 2024
Patient unable provide her own medical history due to lethargy. Patient described as having generalized tonic-clonic event approximately 30 minutes prior to this examiner's arrival.
Objective Data
Vital Signs
Temp Pulse Resp BP Pulse Ox
37.2 C 133 30 128/99 96
05/11/24 05:00 01/21/25 06:00 05/11/24 06:00 05/11/24 06:00 05/11/24 05:00
Lab Results
05/11/24 04:34
05/11/24 04:34
PT 22.3 Sec (11.4-14.6) H 05/08/24 14:22
INR 1.94 05/08/24 14:22
Sodium 137 mmol/L (135-145) 05/11/24 04:34
Potassium 4.0 mmol/L (3.5-5.1) 05/11/24 04:34
BUN 31 mg/dl (7-17) H 05/11/24 04:34
Glucose 102 mg/dl (70-99) H 05/11/24 04:34
Calcium 7.6 mg/dl (8.4-10.2) L 05/11/24 04:34
Patient Allergies
ARGENIS Inhibitors Allergy (Unknown, Verified 04/30/24 14:44)
Unknown
nitroglycerin Allergy (Unknown, Verified 04/30/24 16:00)
Unknown
Penicillins Allergy (Unknown, Verified 05/10/24 15:51)
possible anaphylaxis, cardiac arrest 01/12
aspirin Allergy (Verified 04/30/24 20:20)
Hives
ceftriaxone Allergy (Verified 04/30/24 14:44)
Unknown
cyclobenzaprine Allergy (Verified 04/30/24 14:44)
Unknown
gabapentin Allergy (Verified 04/30/24 14:44)
Unknown
hydromorphone Allergy (Verified 04/30/24 14:44)
Unknown
Iodinated Contrast Media Allergy (Verified 04/30/24 14:45)
Hives
isosorbide Allergy (Verified 04/30/24 14:44)
Unknown
lactose Allergy (Verified 04/30/24 14:44)
Unknown
lactulose Allergy (Verified 04/30/24 14:44)
Unknown
metformin Allergy (Verified 04/30/24 14:44)
Unknown
nortriptyline Allergy (Verified 04/30/24 14:44)
Unknown
NSAIDS (Non-Steroidal Anti-Inflamma Allergy (Verified 04/30/24 14:44)
Unknown
pregabalin Allergy (Verified 04/30/24 14:44)
Unknown
tramadol Allergy (Verified 04/30/24 14:44)
Unknown
Review of Systems
-
Unable to obtain full review of systems at this time due to: Lethargy
History Source: Patient
All other systems: Reviewed and negative
Physical Exam
-
General: No Apparent Distress and Appears Stated Age
Eyes: Round OU and [place] Conjunctivae
HEENT: Anicteric and Moist Mucous Membranes
Neck: Full Range of Motion
Respiratory: No Dyspnea
Cardiac: No JVD
GI: Non-distended
Skin: Unremarkable
Extremities: No Clubbing, No Cyanosis and No Edema
Psych: Unable to Assess
Extended Neurological Exam
Mood & Affect: Unable to Assess
Attention Span & Concentration: Unable to Perform 2 Step Request and Other (Unable to perform single step requests); Negative Awake, Alert or Interactive
Memory: Unable to Assess
Tremor: Hand Tremor Absent and Head Tremor Absent
Involuntary Movement: Other (Low amplitude semirhythmic right foot myoclonic movements)
Speech: Mute
Cranial Nerve II: Left Eye: Pupillary Reactivity Unremarkable, Pupillary Size Unremarkable and Unable to Assess Visual Vallecillo
Cranial Nerve II: Right Eye: Pupillary Reactivity Unremarkable, Pupillary Size Unremarkable and Unable to Assess Visual Vallecillo
Cranial Nerves III, IV, : Extraocular Movement: Unable to Assess
Cranial Nerve VII: Facial Symmetry: Normal Facial Symmetry
Cranial Nerve VIII: Hearing: Unremarkable Hearing to Normal Conversational Volume
Cranial Nerves IX, X: Palate Movement: Unable to Assess
Cranial Nerve XI: Shoulder Shrug: Unable to Assess
Cranial Nerve XII: Tongue Protusion: Unable to Assess
Muscle Strength, Overall: Spontaneously Moves (All extremities, rarely, typically after passive movement of the limb, minimally)
Muscle Bulk & Tone: Bulk Unremarkable and Tone Unremarkable
Pronator Drift: Unable to Assess
Cold Sensation: Unable to Assess
Vibration Sensation: Unable to Assess
Touch Sensation: Negative Withdrawal to Pain
Coordination: Unable to Assess
Gait & Station: Unable to Assess
Data Reviewed
-
CT Head: Report Reviewed and Image Reviewed
EEG: Ordered and Report Reviewed
Labs: Report Reviewed
Reviewed with: Physician and Nurse
Old Records: Summarized
Past History
Past History
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
seizures)
ED Past Surgical History: Cardiac (mechanical mitral valve replacement, bio-prosthetic aortic valve replacement) and Other (hemodialysis via PermCath)
Social History
Tobacco: Other (unknown)
Alcohol: Other (unknown)
Drug: Other (unknown)
Living: skilled nursing
Employment: Not employed
Family History
Family History: Unable to obtain
Medications
-
Medications:
Generic Name Dose Route Start Last Admin
Trade Name Freq PRN Reason Stop Dose Admin
Acetaminophen 650 mg 05/09/24 01:12 05/10/24 12:40
Acetaminophen 325 Mg Tablet PO 06/06/24 01:11 650 mg
Q4HPRN PRN Administration
mild pain
Albuterol/Ipratropium 3 ml 05/09/24 01:12
Ipratropium 0.5/Albuterol 3 Mg (3 Ml Ampul) INH
R Q6HPRN PRN
sob
Protocol
Amiodarone HCl 200 mg 05/17/24 08:00
Amiodarone 200 Mg Tablet PO 06/14/24 07:59
DAILY CHRIST
Atorvastatin Calcium 40 mg 05/09/24 22:00 05/10/24 23:35
Atorvastatin (Lipitor) 40 Mg Tablet PO 06/06/24 21:59 40 mg
HS CHRIST Administration
Bisacodyl 10 mg 05/09/24 01:12
Bisacodyl 10 Mg Rectal Suppository RECTAL 06/06/24 01:11
DAILYPRN PRN
constipaiton, no result from m
Budesonide/Formoterol Fumarate 2 puff 05/09/24 08:00 05/10/24 20:46
Symbicort Inhaler 160/4.5 INH 06/06/24 07:59 2 puff
R BID CHRIST Administration
Protocol
Calcitriol 0.25 mcg 05/09/24 08:00 05/10/24 07:36
Calcitriol 0.25 Microgram Capsule PO 06/06/24 07:59 0.25 mcg
DAILY CHRIST Administration
Calcium Acetate 667 mg 05/09/24 08:00 05/10/24 16:40
Calcium Acetate 667 Mg Tablet PO 06/06/24 07:59 667 mg
BID AT 0800,1700 CHRIST Administration
Carvedilol 6.25 mg 05/10/24 17:00 05/10/24 19:24
Carvedilol 6.25 Mg Tablet PO 06/07/24 16:59 6.25 mg
BID CHRIST Administration
Cyanocobalamin 1,000 mcg 05/09/24 08:00 05/10/24 07:37
Cyanocobalamin 1,000 Mcg Tablet PO 06/06/24 07:59 1,000 mcg
DAILY CHRIST Administration
Dextrose 12.5 grams 05/09/24 02:00
Dextrose 50% (0.5 Grams/Ml) 50 Ml Syringe IV 06/06/24 01:59
[id number] PRN
hypoglycemia
Protocol
Divalproex Sodium 500 mg 05/10/24 13:13 05/10/24 19:24
Divalproex Sodium 125 Mg Sprinkle Capsule PO 06/06/24 07:59 500 mg
BID CHRIST Administration
Ezetimibe 10 mg 05/09/24 22:00 05/10/24 23:35
Ezetimibe (Zetia) 10 Mg Tablet PO 06/06/24 21:59 10 mg
HS CHRIST Administration
Famotidine 10 mg 05/09/24 22:00 05/10/24 23:35
Famotidine 20 Mg Tablet PO 06/06/24 21:59 10 mg
HS CHRIST Administration
Ferrous Sulfate 325 mg 05/09/24 12:00 05/10/24 12:40
Ferrous Sulfate 325 Mg Tablet PO 06/06/24 11:59 325 mg
NOON CHRIST Administration
Folic Acid 1 mg 05/09/24 08:00 05/10/24 07:37
Folic Acid 1 Mg Tablet PO 06/06/24 07:59 1 mg
DAILY CHRIST Administration
Glucagon 1 mg 05/09/24 02:00
Glucagon 1 Mg Vial IM 06/06/24 01:59
PRN PRN
hypoglycemia - no IV access
Protocol
Vancomycin HCl 1 each/ Device 0 mls @ 0 mls/hr 05/09/24 01:12
IV
PER PROTOCOL CHRIST
As Directed
Insulin Glargine 10 units/ 0.1 mls @ 0 mls/hr 05/09/24 22:00 05/10/24 23:33
Device SC 06/06/24 21:59 0.1 mls
HS CHRIST Administration
As Directed
Insulin Aspart 3 units 05/09/24 07:30 05/10/24 16:40
Insulin Aspart (100 Units/Ml) 3 Ml Flexpen SC 06/06/24 07:29 3 units
AC CHRIST Administration
Insulin Aspart 0 units 05/09/24 07:30 05/10/24 16:40
Insulin Aspart Low Resistance 300 Units/3 Ml Pen.Injctr SC 06/06/24 07:29 Not Given
AC CHRIST
Protocol
Lorazepam 2 mg 05/10/24 13:14
Lorazepam 2 Mg/Ml Vial IV 06/07/24 13:13
Q4HPRN PRN
Seizure
Melatonin 3 mg 05/09/24 01:12
Melatonin 3 Mg Tablet PO
HSPRN PRN
sleep
Midodrine 10 mg 05/09/24 01:12
Midodrine 5 Mg Tablet PO 06/06/24 01:11
Q4HPRN PRN
for SBP < 90
Pantoprazole Sodium 40 mg 05/09/24 08:00 05/10/24 07:37
Pantoprazole 40 Mg Delayed Release Tablet PO 06/06/24 07:59 40 mg
DAILY CHRIST Administration
Polyethylene Glycol 17 grams 05/09/24 01:12
Polyethylene Glycol Powder 17 Grams Packet PO 06/06/24 01:11
DAILYPRN PRN
constipation
Sodium Chloride 0 flush 05/08/24 23:00
Sodium Chloride 0.9% (Flush) Syringe IV 06/05/24 22:59
PER PROTOCOL CHRIST
Sodium Chloride 0 ml 05/10/24 14:00
Sodium Chloride 0.9% (Preservative Free) 10 Ml Vial IV 06/07/24 13:59
PRN PRN
IV Lorazepam dilution
Protocol
Thiamine HCl 100 mg 05/09/24 12:00 05/10/24 12:40
Thiamine 100 Mg Tablet PO 06/06/24 11:59 100 mg
NOON CHRIST Administration
Vitamin B Complex/Vit C/Folic Acid 1 capsule 05/09/24 22:00 05/10/24 23:35
Renal Cap (Nephrocap) Capsule PO 06/06/24 21:59 1 capsule
HS CHRIST Administration
[2024-05-11] MEDS: SYMBICORT 160/4.5 MCG INHALER INH (08:03)
[2024-05-11] MEDS: ATIVAN 2 MG IV (08:07)
[2024-05-11] MEDS: NSS (PRESERVATIVE FREE) 1 ML IV (08:08)
[2024-05-11] MEDS: NOVOLOG FLEXPEN-LOW RESISTANCE SC ×3 (08:10→18:54)
[2024-05-11] MEDS: NOVOLOG FLEXPEN SC ×3 (08:10→18:54)
--- NOTE | 2024-05-11 08:10 | PTCARENOTE ---
Assumed care of pt at 0715 following shift report. Upon entering pt's room at 0800, pt found to have seizure like activity-rhythmic twitching of all four extremities and pt not responding to verbal or tactile stimuli. Ordered prn Ativan 2mg IV given
w/ a stop in notable seizure activity following administration. Pt somnolent. RR 22-28. POx 98% on RA. HR 130-140's during seizure activity, down to 100's AFib. TT to Wesley Cruz w/ update in noted seizure activity and administration of
Ativan.
[2024-05-11 08:20] LABS: Glucose - Point of Care 84 mg/dl (70-99)
--- NOTE | 2024-05-11 08:27 | W.PN.INTV ---
Today's Communication / Plan
Recommendations
Abx as per ID
AEDs as per neurology
cEEG
Aspiration precautions
May need to be intubated if we continue to add AEDs
Poor prognosis - family coming to hospital and we will discuss GOC/code status
Assessment
-
Assessment: 64-year-old female with a past medical history of ESRD on HD, DM type I, chronic hypoxic respiratory failure on home O2 at 2 L/min, history of mechanical MVR + bioprosthetic AVR, history of paroxysmal A-fib previously on Coumadin
(stopped s/p recent ICH), chronic HFpEF, history of seizures and chronic pain syndrome who presented from [facility] with fever, diaphoresis and bruising on the RLQ + right upper thigh. She was initially admitted to telemetry and
treated for sepsis with possible pneumonia as initial CXR showed diffuse groundglass opacities. Subsequent CT chest on 04/30/2024 showed fluid in both fissures bilaterally with bilateral pleural effusions (slightly improved compared to recent CT
chest on 04/30/2024), with no evidence for pneumonia. She was continued on antibiotics due to GBS bacteremia. On 05/09/2024 she developed bilateral jerking movements and treated with Valium. She was then transferred to the IMU for further care.
EEG obtained on 05/10/2024 showing concern for status epilepticus. Patient then given AED with valproic acid and transferred to the ICU for further care.
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
previously on Coumadin (removed s/p recent ICH), smoldering myeloma with chronic anemia/thrombocytopenia, CHF, history of seizures, chronic pain syndrome
Impression:
#Altered mental status with concern for status epilepticus
#Acute on chronic HFpEF exacerbation
#GBS bacteremia due to Streptococcus agalactiae
#Lactic acidosis due to sepsis
#Acute on chronic thrombocytopenia likely due to sepsis
#DM type I complicated by hyperglycemia (HbA1c: 6.4 on 05/01/2024)
#History of A-fib on amiodarone
#ESRD on HD via right anterior chest wall permacath
#CAD with history of NSTEMI
#History of CVA with recent ICH
#History of mechanical mitral valve replacement + bioprosthetic aortic valve replacement with moderate�severe TR and severe pulmonary hypertension (per TTE from 04/30/2024)
#History of COPD
#History of fall with rectus sheath hematoma and ICH
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
#Cognitive impairment
#Smoldering multiple myeloma
#Chronic anemia
Plan:
- Antiepileptic drugs per neurology
- Valproic acid started and follow VPA levels
- CT head shows a 2.1cm acute IPH in the superior left parietal lobe, however neurology compared this imaging to recent OSH imaging at [facility], and this is a similar IPH and thus it is not acute but rather acute/subacute.
- Neurology is ok with us starting chemical ppx
- cEEG started today by neurology
- Continue fluid removal per HD
- Maintain SpO2 88-95% (reported Hx of COPD) with supplemental O2 and wean down as tolerated
- Maintain net negative fluid balance as tolerated
- Continue with empiric antibiotics, currently on IV vancomycin + aztreonam
- ID consulted and recommendations appreciated
- Blood cultures from 05/08/2024 have grown group B strep; blood culture from 05/09/2024 is also positive with Strept agalactiae; repeat BCx today x2
- Source of GBS bacteremia is unclear, with HD catheter infection and prosthetic aortic valves being top source possibilities; discitis is also possible - MRI T-spine is pending. Repeat TTE is also pending and if negative will consider BETTY
- Maintain MAP>65
- Replete electrolytes with K>4, Mg>2
- Maintain euglycemia with goal BG 140-180
- Trend H/H and transfuse if needed to keep Hb>7g/dL; keep plt>20k, unless there is concern for bleeding then keep plt>50k
- prn nebulized bronchodilators - not currently bronchospastic
- DVT ppx: Ok for chemical ppx per neurology - monitor Hb and her r-sided hematoma, and stop if Hb drops of hematoma expands
Poor prognosis - family coming in and we will discuss goals of care/code status.
Critical care statement: A total of 46 minutes of critical care time was provided for this patient today. This includes management of unstable vital signs, evaluation of the patient at bedside, reviewing the patient's pertinent medical records
including radiographs, microbiology, laboratory evaluations, and discussion with primary team, consultants, pharmacy, nutrition, physical therapy, case management, charge nurse, critical care nursing, and respiratory therapy.
Data:
CT Chest w/o Contrast 05/09/2024:
No evidence of pneumonia.
Findings as described. Consider congestive heart failure or volume overload.
More localized opacity suggested in the mid to upper lung zones on recent chest radiograph appears to correspond to increased attenuation secondary to fluid within the major fissure, right greater than left.
Stable appearance at T7-8. As stated previously, possibly degenerative in nature, though recommend clinical correlation to exclude the possibility of infection.
Subjective Dataa
Subjective Data
Date of Service:
Date of Service: May 11, 2024
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
Subjective:
Patient seen and evaluated this morning. Seizure-like activity seen this morning and Ativan provided, but she became lethargic but still responding to verbal stimulation. BP also dropped with SBP in 70s --> berhane started. Currently at 120mcg/min.
cEEG started. Placed on 2L/min. Family coming in to discuss goals of care.
Review of Systems
General: Unobtainable - Pat Unresp
Objective Data
Data Reviewed
Vital Signs / I&O / Oxygen:
Vital Signs
Temp Pulse Resp BP Pulse Ox
97.7 F 133 30 128/99 96
05/11/24 07:45 05/11/24 06:00 05/11/24 06:00 05/11/24 06:00 05/11/24 05:00
Intake and Output
05/10/24 05/11/24 05/12/24
06:59 06:59 06:59
Intake Total 750 / 750 960 / 960
Output Total 0 / 0 0 / 0
Balance 750 / 750 960 / 960
SaO2 96
Nasal Cannula flow liters per 3
minute
Physical Exam
General: Respiratory Distress (negative), Chills (negative) and Sweats (negative)
HEENT: Normocephalic and Anicteric
Cardiovascular: S1-S2 and Peripheral Edema (negative)
Respiratory: Wheeze (negative), Crackles (negative), Rhonchi (negative) and Non-Labored Respirations
GI: Soft, Non Distended, Non Tender and Normal Bowel Sounds
Neurology: Tremors (positive) and Unresponsive (minimally response to verbal and tactile stimuli)
Skin: Warm, Dry, Cyanosis (negative) and Jaundice (negative)
Labs/Micro/Reports
Lab Data
05/11/24 04:34
05/11/24 04:34
Microbiology
05/08/24 23:28 Blood/Venous Blood Culture - Preliminary
Streptococcus agalactiae
05/08/24 23:28 Blood/Venous Gram Stain - Preliminary
05/09/24 09:37 Blood/Venous Blood Culture - Preliminary
Positive culture in progress
05/09/24 09:37 Blood/Venous Gram Stain - Preliminary
05/09/24 04:15 Nose Nasal Screen MRSA (PCR) - Final
MRSA not detected - performed by PCR methodology.
05/08/24 14:07 Nasal Swab Influenza Types A & B (FAIZAN) - Final
Negative for Influenza A & B, NAAT
Negative results must be combined with clinical observations
and patient history.
Nucleic Acid Amplification test (NAAT)performed on the
[employer] ID NOW platform.
--- NOTE | 2024-05-11 08:49 | PHA.VAN.FU ---
Vancomycin Assessment / Plan
- Assessment
Hemodialysis Schedule: MWF
Last Hemodialysis performed: Wednesday 05/10
WBC's are: WNL
In the past 24 hrs, patient has been: Afebrile
- Dosing Plan
Dosing by Level: Hold off on dosing today
- Monitoring Plan
Random Level: 05/12 prior to HD
- Follow Up
Pharmacy will continue to follow.
Vancomycin Follow UP
- -
Patient Age: 64
Patient Sex: Female
Vancomycin Day #: 4
Indication: Pulmonary/Respiratory
Requesting Provider: Dr. Mercado / [facility]
Pertinent Antimicrobial Allergies:
penicillin - unknown
ceftriaxone - unknown
Height / Weight:
Height 5 ft 6 in
Actual Weight 63.2 kg
Pertinent Past Medical History: ESRD - HD MWF, DM, CHF
- Vital Signs / Lab Results
Temp Pulse Resp BP Pulse Ox
99 F 133 30 128/99 96
05/11/24 05:00 05/11/24 06:00 05/11/24 06:00 05/11/24 06:00 05/11/24 05:00
Lab Results - Hematology
05/08/24 05/09/24 05/09/24
13:55 04:22 18:59
WBC 13.5 H 11.7 H 12.1 H
05/10/24 05/11/24
03:45 04:34
WBC 8.4 9.1
Lab Results - Chemistry
05/08/24 05/09/24 05/09/24
13:55 04:22 18:59
BUN 29 H 38 H 48 H
Creatinine 3.6 H 3.7 H 4.6 H*
Estimated Creat Clear 15 12
Albumin 3.8 3.6
05/10/24 05/11/24
03:45 04:34
BUN 54 H 31 H
Creatinine 5.6 H* 3.4 H
Estimated Creat Clear 10 16
Albumin 3.0 L
05/08/24 05/09/24 05/09/24
13:55 09:37 20:27
Lactic Acid 5.2 H* 1.4 5.3 H*
05/10/24 05/10/24 05/10/24
03:45 09:00 15:00
Lactic Acid 2.1 H Cancelled Cancelled
05/10/24
21:00
Lactic Acid Cancelled
Microbiology Results
05/08/24 23:28 Blood Culture - Preliminary
Blood/Venous Streptococcus agalactiae
Gram Stain - Preliminary
05/09/24 09:37 Blood Culture - Preliminary
Blood/Venous Positive culture in progress
Gram Stain - Preliminary
05/09/24 04:15 Nasal Screen MRSA (PCR) - Final
Nose MRSA not detected - performed by PCR methodology.
Therapeutic Drug Monitoring
Random Vancomycin 20.1 ug/ml 05/10/24 03:45
--- NOTE | 2024-05-11 09:15 | PTCARENOTE ---
Pt's SBP in 70's. Dr Major on unit and updated on seizure activity w/ Ativan administration and current SBP in 70's. Order for Jett gtt received and started (see worklist intervention). Wesley Marrero and Christiano to bedside to evaluate pt. EEG in
progress. RT in room to draw ordered ABG. IV Team RN notified of need for PICC.
--- NOTE | 2024-05-11 09:40 | PTCARENOTE ---
Dr Vallecillo at bedside to evaluate pt- updated on events of this AM and current plan of care. Per Dr Vallecillo, ordered MRI can be held until pt stable.
--- NOTE | 2024-05-11 09:40 | W.PN.ID1 ---
Date of Service
Date of Service: May 11, 2024
Today's Communication
Poor prognosis.
Assessment / Plan
# Group B strep bacteremia 2 sets
# s/p Sepsis; fever, leukocytosis resolved
# Seizure/status epilepticus
# hx of mechanical MVR (Coumadin on hold due to recent ICH)
# hx of bio - AVR
# Allergy to ceftriaxone (cardiac-arrest) and PCN
# Recent ICH, right pelvic hematoma at [facility] 03/2024
# ESRD on HD
- Source of GBS bacteremia unclear at this time
Possible source include endocarditis violette in setting of prosthetic valves vs discitis (CT T7-T8 erosive changes endplate), HD catheter infection
- Repeat bcx x 2 today
- Agree with repeat TTE. If neg consider BETTY. Although pt is not surgical candidate, BETTY can help with length of abx therapy and/or need for chronic suppressive therapy.
- MRI T- spine to assess for discitis, when stable. CRP elevated
- Continue Vancomycin IV.
- Head CT 2.1 cm ACUTE INTRAPARENCHYMAL HEMORRHAGE in the SUPERIOR LEFT PARIETAL LOBE. Of note recent ICH. Obtain medical records from [place].
Overall prognosis is poor.
# Conditions prior to admission
Cognitive impairment
Diabetes mellitus
End-stage renal disease on hemodialysis
Smoldering multiple myeloma
COPD
Chronic hypoxic respiratory failure on 2L O2
atrial fibrillation
CAD
Heart failure with reduced EF
hx ICD placement 2006 subsequently removed 2015 due to endocarditis
CVA
Chronic pain
Seizure
Intracranial hemorrhage amd rectal sheath hematoma after Fall04/20/24
Mechanical mitral valve replacement 2018 (Coumadin on hold due to bleed)
Bioprosthetic aortic valve replacement 2006
Chief Complaint
-: Bacteremia
Subjective / Review of Systems
Spoke to nurse, pt was seizing this am.
Vital Signs / Physical Exam
Vital Signs
Vital Signs
Temp Pulse Resp BP Pulse Ox
97.7 F 133 30 128/99 96
05/11/24 07:45 05/11/24 06:00 05/11/24 06:00 05/11/24 06:00 05/11/24 05:00
Physical Exam
Constitutional: Acutely Ill and Chronically Ill
Eyes: No Conjunctival Hemorrhage and Sclera Anicteric
Cardiovascular: S1/S2 and Other (tachycardic)
Pulmonary: Clear (anteriorly)
Gastrointestinal: Soft, Non Tender, Non Distended and Other (right pelvis/groin/thigh with ecchymotic firm induration )
Extremities: Negative Edema
Neurological: Other (lethargic)
Lines: HD Cath (RCW: no erythema)
Objective Data
Lab Data
Lab Results
05/11/24 04:34
05/11/24 04:34
PT 22.3 Sec (11.4-14.6) H 05/08/24 14:22
INR 1.94 05/08/24 14:22
Estimated Creat Clear 16 ml/min 05/11/24 04:34
Lactic Acid Cancelled 05/10/24 21:00
Total Bilirubin 0.7 mg/dl (0.2-1.3) 05/10/24 03:45
AST 20 U/L (14-36) 05/10/24 03:45
ALT 15 U/L (0-35) 05/10/24 03:45
Alkaline Phosphatase 65 U/L (38-126) 05/10/24 03:45
C-Reactive Protein 53.80 mg/L (0.0-10.00) H 05/11/24 04:34
Most recent labs reviewed.
Micro Results:
05/11/24 04:34 Blood Culture - Pending
Blood/Venous
05/11/24 05:12 Blood Culture - Pending
Blood/Venous
05/08/24 23:28 Blood Culture - Preliminary
Blood/Venous Streptococcus agalactiae
Gram Stain - Preliminary
05/09/24 09:37 Blood Culture - Preliminary
Blood/Venous Positive culture in progress
Gram Stain - Preliminary
05/09/24 04:15 Nasal Screen MRSA (PCR) - Final
Nose MRSA not detected - performed by PCR methodology.
05/08/24 14:07 Influenza Types A & B (FAIZAN) - Final
Nasal Swab Negative for Influenza A & B, NAAT
Negative results must be combined with clinical observations
and patient history.
Nucleic Acid Amplification test (NAAT)performed on the
[employer] platform.
05/09/[address]: No evidence of pneumonia. Consider congestive heart failure or volume overload.
05/08/24 CT a/p: 5 x 10 x 15 cm hematoma in the subcutaneous tissues of the right anterolateral pelvis extending down to the inguinal region 2). Small bilateral pleural effusions with associated compressive atelectasis at the lung bases.
05/10/[address]: 2.1 cm ACUTE INTRAPARENCHYMAL HEMORRHAGE in the SUPERIOR LEFT PARIETAL LOBE qnta-[id number] matter junction surrounded by a large amount of vasogenic edema (hemorrhage volume 2.94 cc)
Care Review
Plan reviewed with: Nurse
[2024-05-11 09:43] LABS: B.E. 1.8 mmol/L; HCO3 25.3 mmol/L (21-28); O2 Saturation % 93.6 % (94-98); PCO2 34 mmHg (32-35); PO2 60 mmHg (83-108); pH 7.48 (7.35-7.45)
[2024-05-11] MEDS: VIMPAT 200 MG IV (09:44)
--- NOTE | 2024-05-11 09:58 | PTCARENOTE ---
ABG results noted. O2 applied at 2l/min w/ POx 98%. RR 22. Remains somnolent- grimaces to noxious stimuli and resists care at times otherwise unresponsive. EEG continues. No evidence of seizure activity noted at this time. Titrating Jett gtt per
ordered parameters.
--- NOTE | 2024-05-11 10:53 | VATNOTE ---
Attempted to place left sided PICC line as patient has right arm limb restriction. Minimal vessels same, able to access left brachial vein and easily thread wine into position. While passing PICC line, unable to fully insert PICC. at 15cm ECL, PICC
difficult to flush. at 10cm ECL, unable to flush PICC or draw back blood. Attempted multiple times to pass PICC; patient became restless and displaced PICC during one attempt, and PICC was no longer able be threaded more than a few centimeters.
Procedure aborted and JABARI Valdes made aware. Recommend IRAD intervention for central access needs.
--- NOTE | 2024-05-11 11:45 | PTCARENOTE ---
Pt continues to rest quietly- no further seizure-like activity noted. EEG continues. Neosynephrine gtt as documented. Pt remains somnolent- resists oral care but nonverbal and not following any commands. No distress. POx 100% on O2 at 2l/min.
Repositioned and comfort care provided q2hr or more frequently. No additional changes from previous assessment findings.
[2024-05-11 11:47] LABS: Glucose - Point of Care 87 mg/dl (70-99)
--- NOTE | 2024-05-11 12:02 | CM ---
CM following re: discharge planning.
Reviewed pt's chart, met with pt.
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 No auth required
for pt to return back to [facility].
[facility] nursing report to: [phone]
Fax report to: [phone]
D/C plan: return back to [facility] for a shelter care.
CM will follow with discharge plan updates as hospitalization progresses
--- NOTE | 2024-05-11 12:03 | W.PN.NEPH.PH ---
Today's Communication / Plan
-
HD tomorrow
Assessment/Plan
-
Impression:
ESRD MWF
Metabolic acidosis
Hyperkalemia
DM
Hypoxia with pulmonary edema and possible pneumonia
Diabetes (insulin requiring)
Secondary parathyroidism
A-fib
History of recent intracranial hemorrhage
Mechanical mitral heart valve replacement
Positive troponin/ischemic cardiomyopathy
Coronary artery disease with history of
Anemia
History of seizure
History of CVA
History of smoldering myeloma
History of GI bleed
Right IJ dialysis cath
Plan:
HD tomorrow
Heparin free
Antibiotics per infectious disease
Prognosis is poor
-
-
Date of Service: May 11, 2024
CC / HPI / ROS
-
Chief Complaint:
ESRD
History of Present Illness:
Tolerated dialysis yesterday
Poorly communicative
Blood pressure stable
Review of Systems:
No chest pain or shortness of breath
Labs
-
Labs:
WBC 9.1 10^3/uL (4.8-10.8) 05/11/24 04:34
RBC 2.49 10^6/uL (4.20-5.40) L 05/11/24 04:34
Hgb 7.9 g/dL (12.0-16.0) L 05/11/24 04:34
Hct 23.5 % (37.0-47.0) L 05/11/24 04:34
Plt Count 62 10^3/uL (130-400) L D 05/11/24 04:34
Sodium 137 mmol/L (135-145) 05/11/24 04:34
Potassium 4.0 mmol/L (3.5-5.1) 05/11/24 04:34
Chloride 97 mmol/L (98-107) L 05/11/24 04:34
Carbon Dioxide 26 mmol/L (22-30) 05/11/24 04:34
BUN 31 mg/dl (7-17) H 05/11/24 04:34
Creatinine 3.4 mg/dL (0.6-1.0) H 05/11/24 04:34
eGFR 14.67 05/11/24 04:34
Glucose 102 mg/dl (70-99) H 05/11/24 04:34
Calcium 7.6 mg/dl (8.4-10.2) L 05/11/24 04:34
Albumin 3.0 g/dl (3.5-5.0) L 05/10/24 03:45
Physical Exam
-
Vital Signs:
Vital Signs
Temp Pulse Resp BP Pulse Ox
97.7 F 101 20 104/84 100
05/11/24 07:45 05/11/24 11:45 05/11/24 11:45 05/11/24 11:45 05/11/24 11:45
Cardiovascular:: Regular rate and rhythm
Respiratory:: Bilateral: Coarse
Lung Excursion:: Normal
Abdomen:: Nontender and Soft
Bowel Sounds:: Normal
Extremity Edema:: None: Bilateral:
[2024-05-11] MEDS: COREG PO (12:05)
[2024-05-11] MEDS: PHOSLO PO ×2 (12:06→18:54)
[2024-05-11] MEDS: FOLVITE PO (12:06)
[2024-05-11] MEDS: PROTONIX PO (12:06)
[2024-05-11] MEDS: DEPAKOTE SPRINKLE PO (12:06)
[2024-05-11] MEDS: ROCALTROL PO (12:07)
[2024-05-11] MEDS: VITAMIN B-12 PO (12:07)
[2024-05-11] MEDS: FEOSOL PO (12:08)
[2024-05-11] MEDS: FOLVITE 50.2 MG IV (12:08)
--- NOTE | 2024-05-11 12:34 | PTCARENOTE ---
Pt's son visiting at bedside. Updated on pt's condition, plan of care. Questions answered and emotional support provided. Pt's son indicates pt has total of 6 children (4 sons, 2 dtrs) and confirmed family's decision to change pt to DNR status.
[2024-05-11 14:04] LABS: Depakane 75.2 ug/ml (50.0-120.0)
--- NOTE | 2024-05-11 14:59 | W.PN.HOSP.TC ---
Addendum entered and electronically signed by Mason Alvarado DO 05/11/24 16:08:
CDI: Chronic HFpEF, stage II sacral pressure injury, metabolic encephalopathy secondary to seizure
Original Note:
Today's Communication/Plan
-
Goals of care discussion with family
Possible hospice
If full treatment will plan for intubation and AED drip
Assessment / Plan
Assessment / Plan
#Sepstic shock
#Bacteremia with group B streptococcus
-Presented with positive SIRS criteria, blood cultures growing strep agalactiae; cannot rule out endocarditis versus infected permacath versus discitis
-Only 1 blood culture taken in the ED that returned positive, repeat blood culture also positive
-Suspicion for infected permacath though does not appear infectious, no tenderness or erythema
-MRSA swab returned negative; currently on vancomycin and aztreonam due to allergy history
-Per Reyes criteria, 1 major and 1 to minor criteria for failed indicating possibility of endocarditis
-Remains hemodynamically stable without vasopressors
-ID consulted, narrowed antibiotics to vancomycin only
Plan
-Order echocardiogram to assess for vegetations
-Continue with vancomycin for now
-Follow-up repeat blood cultures from today
-Trend CBC and temperature curve
-Continue Levophed for MAP goal >60
#Status epilepsy
-Likely secondary to subacute left parietal ICH serving as nidus for seizure active
-Does have a history of seizures related to her ICH; on Depakote for seizure prophylaxis
-Developed myoclonic like spasms of her lower extremities here
-Labs on arrival did show Depakote levels were low
-Has retained consciousness, possibly muscle spasms versus partial seizure
-Remains in status today, now on lacosamide and VPA
Plan
-Continue with lacosamide and VPA
-Consider midazolam drip versus hospice
-May require intubation if family pursues full treat
#Hematoma
-The hematoma described on CT appears similar to the rectus sheath hematoma previously noted in prior notes.
-Holding anticoagulation due to recurrent ICH
-Trend CBC, consider repeat CT of hemoglobin drops
#ICH
-Most recent intracranial hemorrhage event in March 2024, has had multiple
-Was previously on warfarin; now on hold for recurrent ICH
-No anticoagulation until seen by neurosurgery as OP
#Recent NSTEMI
-Trop 1.5, trending down from recent admission
-will not trend further
-no chest pain
#Chronic HFrecEF
#Pulmonary HTN
#H/O LBBB
-Was recommended by cardiology to continue with conservative measures
-Continue with beta-jeet for GDMT of HFrecEF
-Volume status removal with dialysis sessions
#AFL
#H/O Paroxysmal AF
-Elevated [id number] though also significant ICH and GIB history
-Home medications include amiodarone and carvedilol; now off of warfarin
-Carvedilol was held upon admission for hypotension related to sepsis
-Currently tachycardic but regular; Continue on telemetry
-Poor candidate for DCCV or ablation
#S/P mechanical MVR
#S/P bioprosthetic AVR
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
-Was previously on warfarin however now DC'd due to ICH in 03/2024
#Chronic hypoxemic respiratory failure
-Per records, baseline 2 L oxygen via nasal cannula
-Likely secondary to heart failure and chronic volume overload
-No signs of hypercapnia; no history of ILD or other primary lung disease
-Home medications include bronchodilators as needed; no standing inhaler
#ESRD
#Secondary hyperparathyroidism
#Anemia of chronic kidney disease
-Suspect ESRD associated with T1DM history, possibly multifactorial
-Home medications include calcitriol for bone mineral disease
-Started on MANOLO for anemia, and midodrine for HotN previously
-Nephrology consulted to resume HD schedule
#T1DM
-Suspect that this is associated with ESRD
-Home regimen includes Lantus 10 units daily, Aspart 3U AC; no recent A1c
-Likely well-controlled due to her end-stage renal disease
-Accu-Cheks were added, as well as ISS
-Blood glucose goal 140-180
#Smoldering myeloma
-Unclear if this is still smoldering or has progressed
-Was started on dialysis within the last few months, light chain nephropathy (?)
-Should have repeat SPE, UPEP, Light chains as outpatient with oncology
-No evidence of hypercalcemia or bone lesions
#H/O multiple ICH from falls
-Multiple falls with ICH while on warfarin for AF and mechanical valve
-Currently off of warfarin; remains subtherapeutic
#H/O GIB
-Remains on warfarin due to mechanical valve
#Chronic constipation
-On as needed bowel regimen
#Chronic pain
-Remains on home as needed oxycodone regimen
DVT prophylaxis: Home warfarin, SCDs
Diet: Renal diet
CODE STATUS: Full code, GOC to be had with the daughter
DVT PPX: SCDs
Diet: Standard renal
Code status: DNR
GOC: Family currently considering comfort measures. Expected to reach decision to
Anticipated Discharge: > 48 hours
Subjective/Interval History
-
Date of Service: May 11, 2024
Seen and examined at the bedside. Overnight CT head demonstrated subacute infarct of the left parietal lobe. EEG demonstrated status epilepticus. Continuous EEG showing persistent status despite therapy with VPA and lacosamide.
As of this morning she became hemodynamically unstable with hypotension, was started on Levophed for vasopressor support. Family has elected for DNR status. Currently considering comfort measures versus otherwise full medical treatment.
Objective Data
-
Labs:
Laboratory Results
05/11/24 05/11/24
04:34 09:34
WBC 9.1
Hgb 7.9 L
Hct 23.5 L
Plt Count 62 L D
HCO3 25.3
Sodium 137
Potassium 4.0
Chloride 97 L
Carbon Dioxide 26
BUN 31 H
Creatinine 3.4 H
Glucose 102 H
Calcium 7.6 L
Vital Signs:
Vital Signs
Temp Pulse Resp BP Pulse Ox
98.2 F 108 22 128/82 100
05/11/24 12:23 05/11/24 13:45 05/11/24 13:45 05/11/24 13:45 05/11/24 13:45
I&O
05/10/24 05/11/24 05/12/24
06:59 06:59 06:59
Intake Total 750 / 750 960 / 960 126 / 126
Output Total 0 / 0 0 / 0
Balance 750 / 750 960 / 960 126 / 126
Review of Systems
-
Unable to obtain full review of systems at this time due to: Acuity
Physical Exam
-
General: Well Developed, Appears Chronically Ill and Other (Encephalopathic, minimally responsive, maintaining airway)
HEENT: Normocephalic, Atraumatic and Moist Mucous Membranes
Respiratory: Clear to Auscultation and Non Labored Respirations
Cardiac: S1/S2, Irregular Rhythm, Murmur and Tachycardic; Negative Rub or Gallop
GI: Soft, Nontender, Nondistended and Normal Bowel Sounds
Musculoskeletal: No Clubbing, No Cyanosis and No Edema
Skin: Warm and Dry; Negative Rash
Neuro: Other (Minimally responsive, occasional seizure activity with lower extremity and facial spasms. )
Data Reviewed
-
CT Scan: Report Reviewed by me and Discussed with Physician (Neurologist)
Labs: Labs Reviewed by me, Discussed with Physician (Ophthalmic Dispenser) and Discussed with Patient
--- NOTE | 2024-05-11 15:45 | PTCARENOTE ---
PT's daughter, two sons and pt's sister at bedside. Wesley Alvarado and Moriah in room to talk w/ family. Family talking about making pt comfort care. Multiple questions answered and emotional support provided to family members. Per Dr Beltran,
holding ordered Briviac pending family imminent decision re: goals of care. Pt's daughter stating 'I think her body is telling us it's time to stop, I just don't want to let her go'. With family's agreement, hospital electrical continuity inspector contacted and asked to
come to bedside.
--- NOTE | 2024-05-11 15:47 | PN.CDI ---
CDI
- -
CDI:
Physician Documentation Request
Admit Date: 05/08/24 23:19
Dear Doctor Christiano,
Please review the following and provide your response in the progress notes.
Clinical Indicators:
Pt admitted with sepsis 2/2 possible infected permacath vs other / AMS/ ICH
Documented per Nursing Wound care documentation 05/09,' Present on admission Sacrum pressure injury stage 2 ..treatment provided border foam placed. '
Physician documentation of the type and location of wounds is required for compliant documentation. Based on the above clinical findings and your assessment, please provide the following in your progress note:
1. Location of the ulcer/wound, including laterality.
2. Type (etiology) of ulcer/wound:
- Pressure (decubitus) ulcer
- Non-pressure ulcer
- Other ( please specify)
Use of terms such as suspected, likely, concern for, or probable (associated with a specific diagnosis that is being evaluated, monitored, or treated as if it exists) are acceptable and can be coded in the inpatient setting, when documented at the
time of discharge.
Thank you,
Concepcion Hernandes RN
CDI Specialist
[place] Text
Please use your independent medical judgment in providing your response.
*Source: National Pressure Ulcer Advisory Panel (NPUAP)
--- NOTE | 2024-05-11 15:51 | PN.CDI ---
CDI
- -
CDI:
Physician Documentation Request
Admit Date: 05/08/24 23:19
Dear Doctor Christiano,
Please review the following and provide your response in the progress notes.
Clinical Indicators:
Pt admitted with sepsis 2/2 possible infected permacath vs other / AMS/ ICH
There is potentially conflicting documentation in the record regarding CHF.
Documented per Progress note 05/09'pAFIB and CHF - rate controlled, appears euvolemic... UF per HD...'
Progress note 05/11, ' Chronic HFrecEF...-Volume status removal with dialysis sessions....'
Lead Php Developer consult, ' #Acute on chronic HFpEF exacerbation...'
ECHo 04/30/24 ,' Left ventricular ejection fraction is 50% by volumetric assessment. Diastolic function indeterminate.'
Please provide further specificity regarding the most likely type and acuity of CHF you are evaluating, treating or monitoring.
Chronic Diastolic CHF
Acute on Chronic Diastolic CHF
Chronic Systolic CHF
Other ( please specify)
Use of terms such as suspected, likely, concern for, or probable (associated with a specific diagnosis that is being evaluated, monitored, or treated as if it exists) are acceptable and can be coded in the inpatient setting, when documented at the
time of discharge.
Thank you,
Concepcion Hernandes RN
CDI Specialist
[place] Text
Please use your independent medical judgment in providing your response.
--- NOTE | 2024-05-11 16:01 | PN.CDI ---
CDI
- -
CDI:
Physician Documentation Request
Admit Date: 05/08/24 23:19
Dear Doctor Christiano,
Please review the following and provide your response in the progress notes.
Clinical Indicators:
Pt admitted with sepsis 2/2 possible infected permacath vs other / AMS/ ICH
Documented per ED, ' ...emergency department from the retirement where she resides after she was noted to have a change in mental status...'
Progress note 05/11,'(Encephalopathic, minimally responsive...'
Neurology consult,' Acute onset change in mental status in patient with numerous risk factors for same including metabolic challenges and recent intracranial hemorrhage with prior seizures.'
Based on the above, could you clarify in the Progress Notes and Discharge Summary which, if any of the following, is the most likely etiology of the confusion/altered mental status.
Metabolic Encephalopathy
Toxic Metabolic Encephalopathy
Other Encephalopathy ( please specify)
Use of terms such as suspected, likely, concern for, or probable (associated with a specific diagnosis that is being evaluated, monitored, or treated as if it exists) are acceptable and can be coded in the inpatient setting, when documented at the
time of discharge.
Thank you,
Concepcion Hernandes RN
CDI Specialist
[place] Text
Please use your independent medical judgment in providing your response.
--- NOTE | 2024-05-11 16:07 | PN.CDI ---
CDI
- -
CDI:
Physician Documentation Request
Admit Date: 05/08/24 23:19
Dear Doctor,
Please review the following and provide your response in the progress notes.
Clinical Indicators:
The diagnosis of Vasogenic Edema was included in the signed Head CT 05/10.
Additional clinical indicators in the chart include:
Neurology progress note 05/11, ' Acute onset change in mental status in patient with numerous risk factors for same including metabolic challenges and recent intracranial hemorrhage with prior seizures....Intracranial hemorrhage demonstrated by CT
of the head, with subacute and acute blood...'
Head CT 05/10,' 2.1 cm ACUTE INTRAPARENCHYMAL HEMORRHAGE in the SUPERIOR LEFT PARIETAL LOBE ecrh-dlirg-xccbb matter junction surrounded by a large amount of vasogenic edema (hemorrhage volume 2.94 cc)...'
Please indicate in your progress notes if you are in agreement that the above diagnosis is valid for this patient:
____ - Vasogenic edema is a valid diagnosis (Please include it in your progress notes)
____ - Vasogenic edema is not a valid diagnosis for this patient
____ - Other ( please specify)
Use of terms such as suspected, likely, concern for, or probable are acceptable for a diagnosis that is being evaluated, monitored or treated as if it exists and can be coded in the inpatient setting, when documented at the time of discharge.
Thank you,
Concepcion Hernandes RN
CDI Specialist
[place] Text
Please use your independent medical judgment in providing your response.
--- NOTE | 2024-05-11 16:28 | CHAP ---
Emotional and spiritual support provided. Prayer blanket given. Family aware of 24 hr binding cutter synthetic cloth coverage. rn call center binding cutter synthetic cloth apprised of situation. Will follow.
--- NOTE | 2024-05-11 17:05 | W.PN.UPDATE ---
Addendum entered and electronically signed by Rigo Campbell MD 05/12/24 09:05:
Patient now comfort care. No additional recommendations at this time. Furniture Detailer/Pulmonary service will now sign off. Thank you for allowing us to be involved in the care of this patient. Please reconsult if there are any additional
questions/concerns, or if patient's respiratory status deteriorates.
Original Note:
Update Note
Progress Note Update
Spoke with the family after goals of care discussion held earlier this afternoon with Dr. Alvarado. Family discussed the patient's clinical status amongst themselves and they have decided they want to transition to comfort care. City Controller already saw
the patient. All questions were answered and emotional support was provided. Bedside nurse updated and we will stop her vasopressors, AEDs and EEG and transition to comfort care now. Keep in ICU tonight in case she passes away. Will consult
hospice as well.
--- NOTE | 2024-05-11 17:09 | PTCARENOTE ---
Dr Major in room to talk w/ family. Decision reached by family to place pt on comfort care. Dr Major to place orders. TT to 's Jb w/ family's decision.technician chemical cleaning notified to d/c EEG monitoring. Emotional support provided to
family. Pt remains somnolent- no obvious seizure activity noted this afternoon.
--- NOTE | 2024-05-11 18:00 | PTCARENOTE ---
Neosynephrine gtt stopped. Pt requesting that O2 and SCD's be left in place. communication coordinator removed. Pt M/S and comfort level of care. CHG bath completed w/ assistance of pt's daughter- oral care and comfort care provided. Pt opens eyes to
stimulation and occasionally stating 'I'm cold' Warmed blankets applied. Safe environment maintained. Emotional support provided.
--- NOTE | 2024-05-11 18:16 | EEGC.RPT ---
Continuous EEG Report
Recording
Start Date of Data Reviewed: 05/11/24
Start Time of Data Reviewed: 09:20
End Date of Data Reviewed: 05/11/24
End Time of Data Reviewed: 17:00
Type of EEG: Continuous
Done with Video Recording: Yes
Study Sequence: Initiation of Study
Electrocardiogram: Unremarkable
Report
CONTINUOUS EEG REPORT
CONTINUOUS EEG INTERPRETATION:
Severely abnormal EEG for age in wakefulness through drowsiness due to:
Burst suppression pattern of activity during lack of unresponsiveness.
CLINICAL CORRELATION:
This study was suggestive of severe bihemispheric cortical dysfunction.
Clinical correlation is advised.
METHODS:
A 21 channel digitized electroencephalogram (EEG) was performed at the bedside in the intensive care unit. The 10/20 international system of electrode placement was used. ECG was monitored. Persyst quantitative analysis was performed.
ELECTROENCEPHALOGRAPHER IMPRESSION(S):
Quality
Good
Background
Maximum: Delta, poorly organized
Amplitude: Medium
Anterior-posterior gradient: Absent
Photic stimulation
Failed to produce activation of the record
Sleep
Not demonstrated
Abnormal EEG activity
Constant as the record progressed suppressions lasting for approximately 1-2 seconds were interrupted by bursts of poorly organized delta activity lasting for approximately 1 second.
Electrocardiogram
Regular
[2024-05-12 00:52] VITALS: BP 108/66
[2024-05-12] MEDS: DILAUDID 0.5 MG IV ×3 (01:15→18:06)
--- NOTE | 2024-05-12 02:34 | DOWNTIME ---
There was a [employer] Client Service Desk Manager Downtime on 05/12/2024 from 0100 to 05/12/2023 at 0205 . Downtime documentation of patient's care, including medication administrations, has been reconciled in the electronic record per guidelines. Refer to the
patient's paper chart under the miscellaneous tab to see printed paper medication records and downtime forms.
--- NOTE | 2024-05-12 08:23 | PTCARENOTE ---
Assumed care of pt at 0715 following shift report. Pt resting quietly, awake with two sons at bedside. No distress noted. Occasional inappropriate/confused comment. Physical assessment as documented. Pt taking sips of apple juice w/o complication at
pt's request. At 0800 pt's son requesting pain med for pt. Pt more agitated and yelling 'ouch'. Existing peripheral IV site sluggish and painful to flush. IV Team RN contacted to place new IV site. Transfer report called to 'Rekha BARBOZA'. Pt to
transfer to Rm 420. Family aware
[2024-05-12 08:30] VITALS: BP 96/71
[2024-05-12 09:02] VITALS: BP 105/74
--- NOTE | 2024-05-12 10:31 | W.PN.HOSP.TC ---
Today's Communication/Plan
-
Inpatient hospice
Morphine drip and other comfort measures as needed
Assessment / Plan
Assessment / Plan
#Sepstic shock
#Bacteremia with group B streptococcus
-Presented with positive SIRS criteria, blood cultures growing strep agalactiae; cannot rule out endocarditis versus infected permacath versus discitis
-Only 1 blood culture taken in the ED that returned positive, repeat blood culture also positive
-Suspicion for infected permacath though does not appear infectious, no tenderness or erythema
-MRSA swab returned negative; currently on vancomycin and aztreonam due to allergy history
-Per Reyes criteria, 1 major and 1 to minor criteria for failed indicating possibility of endocarditis
-Remains hemodynamically stable without vasopressors
-ID consulted, narrowed antibiotics to vancomycin only
-Now on comfort measures
#Status epilepsy
-Likely secondary to subacute left parietal ICH serving as nidus for seizure active
-Does have a history of seizures related to her ICH; on Depakote for seizure prophylaxis
-Developed myoclonic like spasms of her lower extremities here
-Labs on arrival did show Depakote levels were low
-Has retained consciousness, possibly muscle spasms versus partial seizure
-Remains in status today, now on lacosamide and VPA
-Now on comfort measures
#Hematoma
-The hematoma described on CT appears similar to the rectus sheath hematoma previously noted in prior notes.
-Holding anticoagulation due to recurrent ICH
-Trend CBC, consider repeat CT of hemoglobin drops
#ICH
-Most recent intracranial hemorrhage event in March 2024, has had multiple
-Was previously on warfarin; now on hold for recurrent ICH
-No anticoagulation until seen by neurosurgery as OP
#Recent NSTEMI
-Trop 1.5, trending down from recent admission
-will not trend further
-no chest pain
#Chronic HFrecEF
#Pulmonary HTN
#H/O LBBB
-Was recommended by cardiology to continue with conservative measures
-Continue with beta-jeet for GDMT of HFrecEF
-Volume status removal with dialysis sessions
#AFL
#H/O Paroxysmal AF
-Elevated [id number] though also significant ICH and GIB history
-Home medications include amiodarone and carvedilol; now off of warfarin
-Carvedilol was held upon admission for hypotension related to sepsis
-Currently tachycardic but regular; Continue on telemetry
-Poor candidate for DCCV or ablation
#S/P mechanical MVR
#S/P bioprosthetic AVR
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
-Was previously on warfarin however now DC'd due to ICH in 03/2024
#Chronic hypoxemic respiratory failure
-Per records, baseline 2 L oxygen via nasal cannula
-Likely secondary to heart failure and chronic volume overload
-No signs of hypercapnia; no history of ILD or other primary lung disease
-Home medications include bronchodilators as needed; no standing inhaler
#ESRD
#Secondary hyperparathyroidism
#Anemia of chronic kidney disease
-Suspect ESRD associated with T1DM history, possibly multifactorial
-Home medications include calcitriol for bone mineral disease
-Started on MANOLO for anemia, and midodrine for HotN previously
-Nephrology consulted to resume HD schedule
#T1DM
-Suspect that this is associated with ESRD
-Home regimen includes Lantus 10 units daily, Aspart 3U AC; no recent A1c
-Likely well-controlled due to her end-stage renal disease
-Accu-Cheks were added, as well as ISS
-Blood glucose goal 140-180
#Smoldering myeloma
-Unclear if this is still smoldering or has progressed
-Was started on dialysis within the last few months, light chain nephropathy (?)
-Should have repeat SPE, UPEP, Light chains as outpatient with oncology
-No evidence of hypercalcemia or bone lesions
#H/O multiple ICH from falls
-Multiple falls with ICH while on warfarin for AF and mechanical valve
-Currently off of warfarin; remains subtherapeutic
#H/O GIB
-Remains on warfarin due to mechanical valve
#Chronic constipation
-On as needed bowel regimen
#Chronic pain
-Remains on home as needed oxycodone regimen
DVT prophylaxis: Home warfarin, SCDs
Diet: Renal diet
CODE STATUS: Full code, GOC to be had with the daughter
DVT PPX: SCDs
Diet: Standard renal
Code status: DNR
Anticipated Discharge: Within 24 hours
Subjective/Interval History
-
Date of Service: May 12, 2024
Seen and examined at the bedside. Currently on hospice measures. Appears comfortable in the room.
Son at the bedside, will provide a work note for him.
Objective Data
-
Vital Signs:
Vital Signs
Temp Pulse Resp BP Pulse Ox
98.7 F 98 16 105/74 100
05/12/24 09:02 05/12/24 09:02 05/12/24 09:02 05/12/24 09:02 05/12/24 09:02
I&O
05/11/24 05/12/24 05/13/24
06:59 06:59 06:59
Intake Total 960 / 960 213.5 / 213.5
Output Total 0 / 0
Balance 960 / 960 213.5 / 213.5
Review of Systems
-
Unable to obtain full review of systems at this time due to: Dementia and Acuity
Physical Exam
-
General: Well Developed, No Apparent Distress and Comfortable
HEENT: Normocephalic, Atraumatic and Moist Mucous Membranes
Respiratory: Clear to Auscultation and Non Labored Respirations
Cardiac: S1/S2, Murmur and Tachycardic
GI: Soft, Nontender, Nondistended and Normal Bowel Sounds
Musculoskeletal: No Clubbing, No Cyanosis and No Edema
Skin: Warm and Dry; Negative Rash
Neuro: Sedated
Psych: Calm
[2024-05-12] MEDS: ATIVAN 2 MG IV (13:32)
[2024-05-12 19:00] VITALS: BP 112/75
[2024-05-12 23:00] VITALS: BP 101/64
[2024-05-13 03:00] VITALS: BP 107/75
[2024-05-13] MEDS: DILAUDID 0.5 MG IV ×5 (04:19→21:14)
[2024-05-13 07:00] VITALS: BP 119/66
--- NOTE | 2024-05-13 10:51 | W.PN.HOSP.TC ---
Today's Communication/Plan
-
Comfort measures
Assessment / Plan
Assessment / Plan
#Sepstic shock
#Bacteremia with group B streptococcus
-Presented with positive SIRS criteria, blood cultures growing strep agalactiae; cannot rule out endocarditis versus infected permacath versus discitis
-Only 1 blood culture taken in the ED that returned positive, repeat blood culture also positive
-Suspicion for infected permacath though does not appear infectious, no tenderness or erythema
-MRSA swab returned negative; currently on vancomycin and aztreonam due to allergy history
-Per Reyes criteria, 1 major and 1 to minor criteria for failed indicating possibility of endocarditis
-Remains hemodynamically stable without vasopressors
-ID consulted, narrowed antibiotics to vancomycin only
-Now on comfort measures
#Status epilepsy
-Likely secondary to subacute left parietal ICH serving as nidus for seizure active
-Does have a history of seizures related to her ICH; on Depakote for seizure prophylaxis
-Developed myoclonic like spasms of her lower extremities here
-Labs on arrival did show Depakote levels were low
-Has retained consciousness, possibly muscle spasms versus partial seizure
-Remains in status today, now on lacosamide and VPA
-Now on comfort measures
#Hematoma
-The hematoma described on CT appears similar to the rectus sheath hematoma previously noted in prior notes.
-Holding anticoagulation due to recurrent ICH
-Trend CBC, consider repeat CT of hemoglobin drops
#ICH
-Most recent intracranial hemorrhage event in March 2024, has had multiple
-Was previously on warfarin; now on hold for recurrent ICH
-No anticoagulation until seen by neurosurgery as OP
#Recent NSTEMI
-Trop 1.5, trending down from recent admission
-will not trend further
-no chest pain
#Chronic HFrecEF
#Pulmonary HTN
#H/O LBBB
-Was recommended by cardiology to continue with conservative measures
-Continue with beta-jeet for GDMT of HFrecEF
-Volume status removal with dialysis sessions
#AFL
#H/O Paroxysmal AF
-Elevated [id number] though also significant ICH and GIB history
-Home medications include amiodarone and carvedilol; now off of warfarin
-Carvedilol was held upon admission for hypotension related to sepsis
-Currently tachycardic but regular; Continue on telemetry
-Poor candidate for DCCV or ablation
#S/P mechanical MVR
#S/P bioprosthetic AVR
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
-Was previously on warfarin however now DC'd due to ICH in 03/2024
#Chronic hypoxemic respiratory failure
-Per records, baseline 2 L oxygen via nasal cannula
-Likely secondary to heart failure and chronic volume overload
-No signs of hypercapnia; no history of ILD or other primary lung disease
-Home medications include bronchodilators as needed; no standing inhaler
#ESRD
#Secondary hyperparathyroidism
#Anemia of chronic kidney disease
-Suspect ESRD associated with T1DM history, possibly multifactorial
-Home medications include calcitriol for bone mineral disease
-Started on MANOLO for anemia, and midodrine for HotN previously
-Nephrology consulted to resume HD schedule
#T1DM
-Suspect that this is associated with ESRD
-Home regimen includes Lantus 10 units daily, Aspart 3U AC; no recent A1c
-Likely well-controlled due to her end-stage renal disease
-Accu-Cheks were added, as well as ISS
-Blood glucose goal 140-180
#Smoldering myeloma
-Unclear if this is still smoldering or has progressed
-Was started on dialysis within the last few months, light chain nephropathy (?)
-Should have repeat SPE, UPEP, Light chains as outpatient with oncology
-No evidence of hypercalcemia or bone lesions
#H/O multiple ICH from falls
-Multiple falls with ICH while on warfarin for AF and mechanical valve
-Currently off of warfarin; remains subtherapeutic
#H/O GIB
-Remains on warfarin due to mechanical valve
#Chronic constipation
-On as needed bowel regimen
#Chronic pain
-Remains on home as needed oxycodone regimen
DVT prophylaxis: Home warfarin, SCDs
Diet: Renal diet
CODE STATUS: Full code, GOC to be had with the daughter
DVT PPX: SCDs
Diet: Full liquid for comfort
Code status: DNR
Disposition: Remains inpatient hospice appropriate, not currently receiving her dialysis. Plan to discuss outpatient hospice options soon unless course changes
Anticipated Discharge: Within 24 hours
Subjective/Interval History
-
Date of Service: May 13, 2024
Seen and examined at bedside. No acute events overnight. AFVSS. Appears comfortable at time of my evaluation
Her son was present at the bedside and updated
Objective Data
-
Vital Signs:
Vital Signs
Temp Pulse Resp BP Pulse Ox
98.5 F 109 16 119/66 96
05/13/24 07:00 05/13/24 07:00 05/13/24 07:00 05/13/24 07:00 05/13/24 03:00
I&O
05/12/24 05/13/24 05/14/24
06:59 06:59 06:59
Intake Total 213.5 / 213.5 125 / 125
Output Total 0 / 0
Balance 213.5 / 213.5 125 / 125
Review of Systems
-
Unable to obtain full review of systems at this time due to: Acuity
Physical Exam
-
General: No Apparent Distress and Comfortable
HEENT: Normocephalic, Atraumatic and Moist Mucous Membranes
Respiratory: Clear to Auscultation and Non Labored Respirations
Cardiac: Regular Rhythm, S1/S2, Murmur and Tachycardic
GI: Soft, Nontender, Nondistended and Normal Bowel Sounds
Musculoskeletal: No Clubbing, No Cyanosis and No Edema
Skin: Warm and Dry; Negative Rash
Neuro: Sedated
Psych: Calm
--- NOTE | 2024-05-13 11:01 | HOSPNOTE ---
Spoke with daughter Lottie and discussed comfort care. I will continue to follow patient daily at this point patient will remain on comfort and does not meet inpatient criteria. The daughter understands that the patient may go back to [facility] with hospice services if the patient does not pass away within the next few days. I will continue to follow.
--- NOTE | 2024-05-13 13:57 | CM ---
CM reviewed chart, patient remains on comfort care. Referral made to hospice, will continue to follow patient daily. CM will continue to follow for all discharge planning needs.
Plan; Hospice following vs return to [facility] with Hospice.
[2024-05-13 19:00] VITALS: BP 120/79
[2024-05-14] MEDS: DILAUDID 0.5 MG IV ×5 (04:38→20:18)
[2024-05-14 07:00] VITALS: BP 123/69
--- NOTE | 2024-05-14 11:22 | W.PN.HOSP.TC ---
Today's Communication/Plan
-
Comfort measures
Inpatient versus outpatient hospice
Assessment / Plan
Assessment / Plan
#Sepstic shock
#Bacteremia with group B streptococcus
-Presented with positive SIRS criteria, blood cultures growing strep agalactiae; cannot rule out endocarditis versus infected permacath versus discitis
-Only 1 blood culture taken in the ED that returned positive, repeat blood culture also positive
-Suspicion for infected permacath though does not appear infectious, no tenderness or erythema
-MRSA swab returned negative; currently on vancomycin and aztreonam due to allergy history
-Per Reyes criteria, 1 major and 1 to minor criteria for failed indicating possibility of endocarditis
-Remains hemodynamically stable without vasopressors
-ID consulted, narrowed antibiotics to vancomycin only
-Now on comfort measures
#Status epilepsy
-Likely secondary to subacute left parietal ICH serving as nidus for seizure active
-Does have a history of seizures related to her ICH; on Depakote for seizure prophylaxis
-Developed myoclonic like spasms of her lower extremities here
-Labs on arrival did show Depakote levels were low
-Has retained consciousness, possibly muscle spasms versus partial seizure
-Remains in status today, now on lacosamide and VPA
-Now on comfort measures
#Hematoma
-The hematoma described on CT appears similar to the rectus sheath hematoma previously noted in prior notes.
-Holding anticoagulation due to recurrent ICH
-Trend CBC, consider repeat CT of hemoglobin drops
#ICH
-Most recent intracranial hemorrhage event in March 2024, has had multiple
-Was previously on warfarin; now on hold for recurrent ICH
-No anticoagulation until seen by neurosurgery as OP
#Recent NSTEMI
-Trop 1.5, trending down from recent admission
-will not trend further
-no chest pain
#Chronic HFrecEF
#Pulmonary HTN
#H/O LBBB
-Was recommended by cardiology to continue with conservative measures
-Continue with beta-jeet for GDMT of HFrecEF
-Volume status removal with dialysis sessions
#AFL
#H/O Paroxysmal AF
-Elevated [id number] though also significant ICH and GIB history
-Home medications include amiodarone and carvedilol; now off of warfarin
-Carvedilol was held upon admission for hypotension related to sepsis
-Currently tachycardic but regular; Continue on telemetry
-Poor candidate for DCCV or ablation
#S/P mechanical MVR
#S/P bioprosthetic AVR
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
-Was previously on warfarin however now DC'd due to ICH in 03/2024
#Chronic hypoxemic respiratory failure
-Per records, baseline 2 L oxygen via nasal cannula
-Likely secondary to heart failure and chronic volume overload
-No signs of hypercapnia; no history of ILD or other primary lung disease
-Home medications include bronchodilators as needed; no standing inhaler
#ESRD
#Secondary hyperparathyroidism
#Anemia of chronic kidney disease
-Suspect ESRD associated with T1DM history, possibly multifactorial
-Home medications include calcitriol for bone mineral disease
-Started on MANOLO for anemia, and midodrine for HotN previously
-Nephrology consulted to resume HD schedule
#T1DM
-Suspect that this is associated with ESRD
-Home regimen includes Lantus 10 units daily, Aspart 3U AC; no recent A1c
-Likely well-controlled due to her end-stage renal disease
-Accu-Cheks were added, as well as ISS
-Blood glucose goal 140-180
#Smoldering myeloma
-Unclear if this is still smoldering or has progressed
-Was started on dialysis within the last few months, light chain nephropathy (?)
-Should have repeat SPE, UPEP, Light chains as outpatient with oncology
-No evidence of hypercalcemia or bone lesions
#H/O multiple ICH from falls
-Multiple falls with ICH while on warfarin for AF and mechanical valve
-Currently off of warfarin; remains subtherapeutic
#H/O GIB
-Remains on warfarin due to mechanical valve
#Chronic constipation
-On as needed bowel regimen
#Chronic pain
-Remains on home as needed oxycodone regimen
DVT prophylaxis: Home warfarin, SCDs
Diet: Renal diet
CODE STATUS: Full code, GOC to be had with the daughter
DVT PPX: SCDs
Diet: Full liquid for comfort
Code status: DNR
Disposition: Remains inpatient hospice appropriate, not currently receiving her dialysis. Plan to discuss outpatient hospice options soon unless course changes
Anticipated Discharge: Within 24 hours
Subjective/Interval History
-
Date of Service: May 14, 2024
Seen and examined the bedside. No acute events overnight. Patient comfortable in the room
Objective Data
-
Vital Signs:
Vital Signs
Temp Pulse Resp BP Pulse Ox
97.6 F 110 18 123/69 100
05/13/24 19:00 05/14/24 07:00 05/14/24 07:00 05/14/24 07:00 05/14/24 07:00
I&O
05/13/24 05/14/24 05/15/24
06:59 06:59 06:59
Intake Total 125 / 125 100 / 100
Output Total 0 / 0
Balance 125 / 125 100 / 100
Review of Systems
-
Unable to obtain full review of systems at this time due to: Acuity
History Source: Patient
All other systems: Reviewed and negative
Physical Exam
-
General: Well Developed, Well Nourished and Comfortable
HEENT: Normocephalic, Atraumatic and Moist Mucous Membranes
Respiratory: Clear to Auscultation and Non Labored Respirations
Cardiac: Regular Rhythm, S1/S2 and Murmur
GI: Soft, Nontender and Nondistended
Musculoskeletal: No Clubbing, No Cyanosis and No Edema
Skin: Warm and Dry; Negative Rash
Neuro: Sedated
Psych: Calm
[2024-05-14 20:00] VITALS: BP 109/74
[2024-05-14] MEDS: NSS (PRESERVATIVE FREE) 1 ML IV ×2 (21:17→23:39)
[2024-05-14] MEDS: ATIVAN 2 MG IV ×2 (21:17→23:38)
[2024-05-15] MEDS: DILAUDID 0.5 MG IV ×3 (06:27→15:18)
--- NOTE | 2024-05-15 10:55 | W.PN.HOSP.TC ---
Today's Communication/Plan
-
Hospice here versus OP
Assessment / Plan
Assessment / Plan
#Sepstic shock
#Bacteremia with group B streptococcus
-Presented with positive SIRS criteria, blood cultures growing strep agalactiae; cannot rule out endocarditis versus infected permacath versus discitis
-Only 1 blood culture taken in the ED that returned positive, repeat blood culture also positive
-Suspicion for infected permacath though does not appear infectious, no tenderness or erythema
-MRSA swab returned negative; currently on vancomycin and aztreonam due to allergy history
-Per Reyes criteria, 1 major and 1 to minor criteria for failed indicating possibility of endocarditis
-Remains hemodynamically stable without vasopressors
-ID consulted, narrowed antibiotics to vancomycin only
-Now on comfort measures
#Status epilepsy
-Likely secondary to subacute left parietal ICH serving as nidus for seizure active
-Does have a history of seizures related to her ICH; on Depakote for seizure prophylaxis
-Developed myoclonic like spasms of her lower extremities here
-Labs on arrival did show Depakote levels were low
-Has retained consciousness, possibly muscle spasms versus partial seizure
-Remains in status today, now on lacosamide and VPA
-Now on comfort measures
#Hematoma
-The hematoma described on CT appears similar to the rectus sheath hematoma previously noted in prior notes.
-Holding anticoagulation due to recurrent ICH
-Trend CBC, consider repeat CT of hemoglobin drops
#ICH
-Most recent intracranial hemorrhage event in March 2024, has had multiple
-Was previously on warfarin; now on hold for recurrent ICH
-No anticoagulation until seen by neurosurgery as OP
#Recent NSTEMI
-Trop 1.5, trending down from recent admission
-will not trend further
-no chest pain
#Chronic HFrecEF
#Pulmonary HTN
#H/O LBBB
-Was recommended by cardiology to continue with conservative measures
-Continue with beta-jeet for GDMT of HFrecEF
-Volume status removal with dialysis sessions
#AFL
#H/O Paroxysmal AF
-Elevated [id number] though also significant ICH and GIB history
-Home medications include amiodarone and carvedilol; now off of warfarin
-Carvedilol was held upon admission for hypotension related to sepsis
-Currently tachycardic but regular; Continue on telemetry
-Poor candidate for DCCV or ablation
#S/P mechanical MVR
#S/P bioprosthetic AVR
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
-Was previously on warfarin however now DC'd due to ICH in 03/2024
#Chronic hypoxemic respiratory failure
-Per records, baseline 2 L oxygen via nasal cannula
-Likely secondary to heart failure and chronic volume overload
-No signs of hypercapnia; no history of ILD or other primary lung disease
-Home medications include bronchodilators as needed; no standing inhaler
#ESRD
#Secondary hyperparathyroidism
#Anemia of chronic kidney disease
-Suspect ESRD associated with T1DM history, possibly multifactorial
-Home medications include calcitriol for bone mineral disease
-Started on MANOLO for anemia, and midodrine for HotN previously
-Nephrology consulted to resume HD schedule
#T1DM
-Suspect that this is associated with ESRD
-Home regimen includes Lantus 10 units daily, Aspart 3U AC; no recent A1c
-Likely well-controlled due to her end-stage renal disease
-Accu-Cheks were added, as well as ISS
-Blood glucose goal 140-180
#Smoldering myeloma
-Unclear if this is still smoldering or has progressed
-Was started on dialysis within the last few months, light chain nephropathy (?)
-Should have repeat SPE, UPEP, Light chains as outpatient with oncology
-No evidence of hypercalcemia or bone lesions
#H/O multiple ICH from falls
-Multiple falls with ICH while on warfarin for AF and mechanical valve
-Currently off of warfarin; remains subtherapeutic
#H/O GIB
-Remains on warfarin due to mechanical valve
#Chronic constipation
-On as needed bowel regimen
#Chronic pain
-Remains on home as needed oxycodone regimen
DVT prophylaxis: Home warfarin, SCDs
Diet: Renal diet
CODE STATUS: Full code, GOC to be had with the daughter
DVT PPX: SCDs
Diet: Full liquid for comfort
Code status: DNR
Disposition: Remains inpatient hospice appropriate, not currently receiving her dialysis. Plan to discuss outpatient hospice options soon unless course changes
Anticipated Discharge: 24 - 48 hours
Subjective/Interval History
-
Date of Service: May 15, 2024
Seen and examined at the bedside. Remains on comfort measures. No signs of distress
Objective Data
-
Vital Signs:
Vital Signs
Temp Pulse Resp BP Pulse Ox
97.6 F 172 22 109/74 100
05/14/24 20:00 05/14/24 20:00 05/14/24 20:00 05/14/24 20:00 05/14/24 20:00
I&O
05/14/24 05/15/24 05/16/24
06:59 06:59 06:59
Intake Total 100 / 100
Balance 100 / 100
Review of Systems
-
Unable to obtain full review of systems at this time due to: Acuity
Physical Exam
-
General: Well Developed, No Apparent Distress and Comfortable
HEENT: Normocephalic, Atraumatic and Moist Mucous Membranes
Respiratory: Clear to Auscultation and Non Labored Respirations
Cardiac: S1/S2, Murmur and Tachycardic
GI: Soft, Nontender and Nondistended
Musculoskeletal: No Clubbing, No Cyanosis and No Edema
Skin: Warm and Dry
Neuro: Sedated
[2024-05-15 11:58] VITALS: BP 94/64
[2024-05-15 23:37] VITALS: BP 91/61
[2024-05-16] MEDS: DILAUDID 0.5 MG IV ×6 (00:04→19:23)
[2024-05-16 07:48] VITALS: BP 114/60
--- NOTE | 2024-05-16 11:30 | W.PN.HOSP.TC ---
Today's Communication/Plan
-
Comfort measures
Assessment / Plan
Assessment / Plan
#Sepstic shock
#Bacteremia with group B streptococcus
-Presented with positive SIRS criteria, blood cultures growing strep agalactiae; cannot rule out endocarditis versus infected permacath versus discitis
-Only 1 blood culture taken in the ED that returned positive, repeat blood culture also positive
-Suspicion for infected permacath though does not appear infectious, no tenderness or erythema
-MRSA swab returned negative; currently on vancomycin and aztreonam due to allergy history
-Per Reyes criteria, 1 major and 1 to minor criteria for failed indicating possibility of endocarditis
-Remains hemodynamically stable without vasopressors
-ID consulted, narrowed antibiotics to vancomycin only
-Now on comfort measures
#Status epilepsy
-Likely secondary to subacute left parietal ICH serving as nidus for seizure active
-Does have a history of seizures related to her ICH; on Depakote for seizure prophylaxis
-Developed myoclonic like spasms of her lower extremities here
-Labs on arrival did show Depakote levels were low
-Has retained consciousness, possibly muscle spasms versus partial seizure
-Remains in status today, now on lacosamide and VPA
-Now on comfort measures
#Hematoma
-The hematoma described on CT appears similar to the rectus sheath hematoma previously noted in prior notes.
-Holding anticoagulation due to recurrent ICH
-Trend CBC, consider repeat CT of hemoglobin drops
#ICH
-Most recent intracranial hemorrhage event in March 2024, has had multiple
-Was previously on warfarin; now on hold for recurrent ICH
-No anticoagulation until seen by neurosurgery as OP
#Recent NSTEMI
-Trop 1.5, trending down from recent admission
-will not trend further
-no chest pain
#Chronic HFrecEF
#Pulmonary HTN
#H/O LBBB
-Was recommended by cardiology to continue with conservative measures
-Continue with beta-jeet for GDMT of HFrecEF
-Volume status removal with dialysis sessions
#AFL
#H/O Paroxysmal AF
-Elevated [id number] though also significant ICH and GIB history
-Home medications include amiodarone and carvedilol; now off of warfarin
-Carvedilol was held upon admission for hypotension related to sepsis
-Currently tachycardic but regular; Continue on telemetry
-Poor candidate for DCCV or ablation
#S/P mechanical MVR
#S/P bioprosthetic AVR
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
-Was previously on warfarin however now DC'd due to ICH in 03/2024
#Chronic hypoxemic respiratory failure
-Per records, baseline 2 L oxygen via nasal cannula
-Likely secondary to heart failure and chronic volume overload
-No signs of hypercapnia; no history of ILD or other primary lung disease
-Home medications include bronchodilators as needed; no standing inhaler
#ESRD
#Secondary hyperparathyroidism
#Anemia of chronic kidney disease
-Suspect ESRD associated with T1DM history, possibly multifactorial
-Home medications include calcitriol for bone mineral disease
-Started on MANOLO for anemia, and midodrine for HotN previously
-Nephrology consulted to resume HD schedule
#T1DM
-Suspect that this is associated with ESRD
-Home regimen includes Lantus 10 units daily, Aspart 3U AC; no recent A1c
-Likely well-controlled due to her end-stage renal disease
-Accu-Cheks were added, as well as ISS
-Blood glucose goal 140-180
#Smoldering myeloma
-Unclear if this is still smoldering or has progressed
-Was started on dialysis within the last few months, light chain nephropathy (?)
-Should have repeat SPE, UPEP, Light chains as outpatient with oncology
-No evidence of hypercalcemia or bone lesions
#H/O multiple ICH from falls
-Multiple falls with ICH while on warfarin for AF and mechanical valve
-Currently off of warfarin; remains subtherapeutic
#H/O GIB
-Remains on warfarin due to mechanical valve
#Chronic constipation
-On as needed bowel regimen
#Chronic pain
-Remains on home as needed oxycodone regimen
DVT prophylaxis: Home warfarin, SCDs
Diet: Renal diet
CODE STATUS: Full code, GOC to be had with the daughter
DVT PPX: SCDs
Diet: Full liquid for comfort
Code status: DNR
Disposition: Remains inpatient hospice appropriate, not currently receiving her dialysis. Plan to discuss outpatient hospice options soon unless course changes
Anticipated Discharge: 24 - 48 hours
Subjective/Interval History
-
Date of Service: May 16, 2024
Seen and examined at the bedside. No acute events overnight. Patient appears comfortable. Spoke with the patient's , who is at the bedside, and daughter Lottie via the phone for updates
Objective Data
-
Vital Signs:
Vital Signs
Temp Pulse Resp BP Pulse Ox
98.3 F 67 16 114/60 100
05/16/24 07:48 05/16/24 07:48 05/16/24 07:48 05/16/24 07:48 05/16/24 07:48
Review of Systems
-
Unable to obtain full review of systems at this time due to: Dementia
Physical Exam
-
General: No Apparent Distress and Comfortable
HEENT: Normocephalic and Atraumatic
Respiratory: Clear to Auscultation and Non Labored Respirations
Cardiac: Regular Rhythm, S1/S2 and Murmur
GI: Soft, Nontender and Nondistended
Skin: Warm and Dry
Neuro: Sedated
Psych: Calm
--- NOTE | 2024-05-16 15:38 | CHAP ---
Kenny was minimally responsive. She had a visitor at her side - he welcomed prayer for her. Emotional and spiritual support provided.
[2024-05-16] MEDS: ATIVAN 2 MG IV (19:24)
[2024-05-16] MEDS: NSS (PRESERVATIVE FREE) 1 ML IV (19:24)
[2024-05-16 22:56] VITALS: BP 104/51
[2024-05-17] MEDS: ATIVAN 2 MG IV ×2 (04:25→17:13)
[2024-05-17] MEDS: NSS (PRESERVATIVE FREE) 1 ML IV (04:25)
[2024-05-17] MEDS: DILAUDID 0.5 MG IV ×5 (05:47→22:22)
[2024-05-17 07:25] VITALS: BP 116/54
--- NOTE | 2024-05-17 13:19 | PTCARENOTE ---
Pt resting comfortably in bed. sacral/buttock foam changed. Q2T continues, jessica care and [place]. Pt's family at bedside. No change in assessment.
--- NOTE | 2024-05-17 15:06 | W.PN.HOSP.TC ---
Today's Communication/Plan
-
Comfort measures
Assessment / Plan
Assessment / Plan
#Sepstic shock
#Bacteremia with group B streptococcus
-Presented with positive SIRS criteria, blood cultures growing strep agalactiae; cannot rule out endocarditis versus infected permacath versus discitis
-Only 1 blood culture taken in the ED that returned positive, repeat blood culture also positive
-Suspicion for infected permacath though does not appear infectious, no tenderness or erythema
-MRSA swab returned negative; currently on vancomycin and aztreonam due to allergy history
-Per Reyes criteria, 1 major and 1 to minor criteria for failed indicating possibility of endocarditis
-Remains hemodynamically stable without vasopressors
-ID consulted, narrowed antibiotics to vancomycin only
-Now on comfort measures
#Status epilepsy
-Likely secondary to subacute left parietal ICH serving as nidus for seizure active
-Does have a history of seizures related to her ICH; on Depakote for seizure prophylaxis
-Developed myoclonic like spasms of her lower extremities here
-Labs on arrival did show Depakote levels were low
-Has retained consciousness, possibly muscle spasms versus partial seizure
-Remains in status today, now on lacosamide and VPA
-Now on comfort measures
#Hematoma
-The hematoma described on CT appears similar to the rectus sheath hematoma previously noted in prior notes.
-Holding anticoagulation due to recurrent ICH
-Trend CBC, consider repeat CT of hemoglobin drops
#ICH
-Most recent intracranial hemorrhage event in March 2024, has had multiple
-Was previously on warfarin; now on hold for recurrent ICH
-No anticoagulation until seen by neurosurgery as OP
#Recent NSTEMI
-Trop 1.5, trending down from recent admission
-will not trend further
-no chest pain
#Chronic HFrecEF
#Pulmonary HTN
#H/O LBBB
-Was recommended by cardiology to continue with conservative measures
-Continue with beta-jeet for GDMT of HFrecEF
-Volume status removal with dialysis sessions
#AFL
#H/O Paroxysmal AF
-Elevated [id number] though also significant ICH and GIB history
-Home medications include amiodarone and carvedilol; now off of warfarin
-Carvedilol was held upon admission for hypotension related to sepsis
-Currently tachycardic but regular; Continue on telemetry
-Poor candidate for DCCV or ablation
#S/P mechanical MVR
#S/P bioprosthetic AVR
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
-Was previously on warfarin however now DC'd due to ICH in 03/2024
#Chronic hypoxemic respiratory failure
-Per records, baseline 2 L oxygen via nasal cannula
-Likely secondary to heart failure and chronic volume overload
-No signs of hypercapnia; no history of ILD or other primary lung disease
-Home medications include bronchodilators as needed; no standing inhaler
#ESRD
#Secondary hyperparathyroidism
#Anemia of chronic kidney disease
-Suspect ESRD associated with T1DM history, possibly multifactorial
-Home medications include calcitriol for bone mineral disease
-Started on MANOLO for anemia, and midodrine for HotN previously
-Nephrology consulted to resume HD schedule
#T1DM
-Suspect that this is associated with ESRD
-Home regimen includes Lantus 10 units daily, Aspart 3U AC; no recent A1c
-Likely well-controlled due to her end-stage renal disease
-Accu-Cheks were added, as well as ISS
-Blood glucose goal 140-180
#Smoldering myeloma
-Unclear if this is still smoldering or has progressed
-Was started on dialysis within the last few months, light chain nephropathy (?)
-Should have repeat SPE, UPEP, Light chains as outpatient with oncology
-No evidence of hypercalcemia or bone lesions
#H/O multiple ICH from falls
-Multiple falls with ICH while on warfarin for AF and mechanical valve
-Currently off of warfarin; remains subtherapeutic
#H/O GIB
-Remains on warfarin due to mechanical valve
#Chronic constipation
-On as needed bowel regimen
#Chronic pain
-Remains on home as needed oxycodone regimen
DVT prophylaxis: Home warfarin, SCDs
Diet: Renal diet
CODE STATUS: Full code, GOC to be had with the daughter
DVT PPX: SCDs
Diet: Full liquid for comfort
Code status: DNR
Disposition: Remains inpatient hospice appropriate, not currently receiving her dialysis. Plan to discuss outpatient hospice options soon unless course changes
Anticipated Discharge: 24 - 48 hours
Subjective/Interval History
-
Date of Service: May 17, 2024
No acute events
Objective Data
-
Vital Signs:
Vital Signs
Temp Pulse Resp BP Pulse Ox
98.3 F 61 16 116/54 97
05/17/24 07:25 05/17/24 07:25 05/17/24 07:25 05/17/24 07:25 05/17/24 12:12
Review of Systems
-
History Source: Patient
All other systems: Not reviewed unless documented
Physical Exam
-
General: No Apparent Distress and Comfortable
HEENT: Normocephalic and Atraumatic
Respiratory: Clear to Auscultation and Non Labored Respirations
Cardiac: Regular Rhythm, S1/S2 and Murmur
GI: Soft, Nontender and Nondistended
Skin: Warm and Dry
Neuro: Sedated
Psych: Calm
[2024-05-17] MEDS: NSS (PRESERVATIVE FREE) 0.5 ML IV (17:12)
[2024-05-17 19:45] VITALS: BP 123/56
[2024-05-18] MEDS: DILAUDID 0.5 MG IV ×5 (06:28→23:34)
[2024-05-18 07:00] VITALS: BP 110/50
[2024-05-18] MEDS: ATIVAN 2 MG IV (08:22)
[2024-05-18] MEDS: NSS (PRESERVATIVE FREE) 1 ML IV (08:22)
--- NOTE | 2024-05-18 12:30 | PTCARENOTE ---
12:25 Pt opened eyes and express one to two words, continue comfort measures. Reposition pt in bed with 2 staff assist. Noted pt moaning at times. Dilaudid 0.5 mg IV given as ordered for discomfort. Pt son at bedside, continue to monitor pt cedric.
--- NOTE | 2024-05-18 13:14 | W.PN.HOSP.TC ---
Today's Communication/Plan
-
comfort
Assessment / Plan
Assessment / Plan
#Sepstic shock
#Bacteremia with group B streptococcus
-Presented with positive SIRS criteria, blood cultures growing strep agalactiae; cannot rule out endocarditis versus infected permacath versus discitis
-Only 1 blood culture taken in the ED that returned positive, repeat blood culture also positive
-Suspicion for infected permacath though does not appear infectious, no tenderness or erythema
-MRSA swab returned negative; currently on vancomycin and aztreonam due to allergy history
-Per Reyes criteria, 1 major and 1 to minor criteria for failed indicating possibility of endocarditis
-Remains hemodynamically stable without vasopressors
-ID consulted, narrowed antibiotics to vancomycin only
-Now on comfort measures
#Status epilepsy
-Likely secondary to subacute left parietal ICH serving as nidus for seizure active
-Does have a history of seizures related to her ICH; on Depakote for seizure prophylaxis
-Developed myoclonic like spasms of her lower extremities here
-Labs on arrival did show Depakote levels were low
-Has retained consciousness, possibly muscle spasms versus partial seizure
-Remains in status today, now on lacosamide and VPA
-Now on comfort measures
#Hematoma
-The hematoma described on CT appears similar to the rectus sheath hematoma previously noted in prior notes.
-Holding anticoagulation due to recurrent ICH
-Trend CBC, consider repeat CT of hemoglobin drops
#ICH
-Most recent intracranial hemorrhage event in March 2024, has had multiple
-Was previously on warfarin; now on hold for recurrent ICH
-No anticoagulation until seen by neurosurgery as OP
#Recent NSTEMI
-Trop 1.5, trending down from recent admission
-will not trend further
-no chest pain
#Chronic HFrecEF
#Pulmonary HTN
#H/O LBBB
-Was recommended by cardiology to continue with conservative measures
-Continue with beta-jeet for GDMT of HFrecEF
-Volume status removal with dialysis sessions
#AFL
#H/O Paroxysmal AF
-Elevated [id number] though also significant ICH and GIB history
-Home medications include amiodarone and carvedilol; now off of warfarin
-Carvedilol was held upon admission for hypotension related to sepsis
-Currently tachycardic but regular; Continue on telemetry
-Poor candidate for DCCV or ablation
#S/P mechanical MVR
#S/P bioprosthetic AVR
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
-Was previously on warfarin however now DC'd due to ICH in 03/2024
#Chronic hypoxemic respiratory failure
-Per records, baseline 2 L oxygen via nasal cannula
-Likely secondary to heart failure and chronic volume overload
-No signs of hypercapnia; no history of ILD or other primary lung disease
-Home medications include bronchodilators as needed; no standing inhaler
#ESRD
#Secondary hyperparathyroidism
#Anemia of chronic kidney disease
-Suspect ESRD associated with T1DM history, possibly multifactorial
-Home medications include calcitriol for bone mineral disease
-Started on MANOLO for anemia, and midodrine for HotN previously
-Nephrology consulted to resume HD schedule
#T1DM
-Suspect that this is associated with ESRD
-Home regimen includes Lantus 10 units daily, Aspart 3U AC; no recent A1c
-Likely well-controlled due to her end-stage renal disease
-Accu-Cheks were added, as well as ISS
-Blood glucose goal 140-180
#Smoldering myeloma
-Unclear if this is still smoldering or has progressed
-Was started on dialysis within the last few months, light chain nephropathy (?)
-Should have repeat SPE, UPEP, Light chains as outpatient with oncology
-No evidence of hypercalcemia or bone lesions
#H/O multiple ICH from falls
-Multiple falls with ICH while on warfarin for AF and mechanical valve
-Currently off of warfarin; remains subtherapeutic
#H/O GIB
-Remains on warfarin due to mechanical valve
#Chronic constipation
-On as needed bowel regimen
#Chronic pain
-Remains on home as needed oxycodone regimen
DVT prophylaxis: Home warfarin, SCDs
Diet: Renal diet
CODE STATUS: Full code, GOC to be had with the daughter
DVT PPX: SCDs
Diet: Full liquid for comfort
Code status: DNR
Disposition: Dispo: Hospice at facility
More than 30 minutes spent in discharge including
Final examination of the patient
Summarizing hospital stay
Instructions for continuing care to all relevant caregivers
Preparation of discharge records, prescriptions, and referral forms
Total time spent (36 in minutes):
Anticipated Discharge: Today
Subjective/Interval History
-
Date of Service: May 18, 2024
no acute events
Objective Data
-
Vital Signs:
Vital Signs
Temp Pulse Resp BP Pulse Ox
97.5 F 71 20 110/50 93
05/18/24 07:00 05/18/24 07:00 05/18/24 07:00 05/18/24 07:00 05/18/24 08:15
I&O
05/17/24 05/18/24 05/19/24
06:59 06:59 06:59
Intake Total 0 / 0
Output Total 0 / 0
Balance 0 / 0
Review of Systems
-
History Source: Patient
All other systems: Not reviewed unless documented
Physical Exam
-
General: No Apparent Distress and Comfortable
HEENT: Normocephalic and Atraumatic
Respiratory: Clear to Auscultation and Non Labored Respirations
Cardiac: Regular Rhythm, S1/S2 and Murmur
GI: Soft, Nontender and Nondistended
Skin: Warm and Dry
Neuro: Sedated
Psych: Calm
Data Reviewed
-
Labs: Labs Reviewed by me and Discussed with Physician
--- NOTE | 2024-05-18 13:17 | W.DS.TRANS ---
DC Summary - [employer]
-
Discharge Instructions:
Sleep Apnea Risk Low
Discharge Diagnosis/Procedures #Septic shock
#Bacteremia with group B streptococcus
#Comfort
Instructions:
Stand-Alone Forms:
Changes to Home Medications: Yes
Discharge Medications:
DC Medications w/original date entered in [facility]
hyoscyamine sulfate 0.125 mg/mL oral drops 0.125 mg sublingual Q4HPRN PRN excessive secretions #0 mL 05/18/24
Home Medication Changes
hyoscyamine sulfate 0.125 mg/mL oral drops 0.125 mg sublingual Q4HPRN PRN excessive secretions #0 mL 05/18/24
Pending Results: No
--- NOTE | 2024-05-18 14:34 | CM ---
CM reviewed chart, reviewed with Hospitalist and Hospice, patient stable for transition back to [facility] with Hospice. Updated clinicals sent to [facility], able to admit patient with Hospice services. Voicemail left for patients
daughter to discuss discharge planning. Patient seen bedside with son, reports he would like to wait for his sister to get here to discuss. Patient seen again with son and daughter, discussed patient able to return to [facility] with Hospice
services. Family upset, requesting to speak to Hospitalist and requesting Risk Management contact, provided to daughter. TT to Hospitalist with update. CM will continue to follow for all discharge planning needs.
Plan; return to with hospice services likely, will need ambulance transport.
[2024-05-18 18:00] VITALS: BMI 22.5
[2024-05-18 19:37] VITALS: BP 149/65
[2024-05-19] MEDS: DILAUDID 0.5 MG IV ×4 (01:53→14:53)
[2024-05-19] MEDS: ATIVAN 2 MG IV (02:08)
[2024-05-19] MEDS: NSS (PRESERVATIVE FREE) 1 ML IV (02:09)
[2024-05-19 07:00] VITALS: BP 137/58
--- NOTE | 2024-05-19 11:35 | CM ---
CM reviewed chart, patient for discharge today to [facility] with hospice services. CM spoke with patients daughter, Lottie, discussed [facility] will sign patient on to Hospice once returns to facility. Daughter verbalizes being upset
about patient returning to facility and lack of communication, CM provide support to daughter, daughter asked CM to call her once there is a time set up for patient and ended call. Patient seen bedside with son, discussed 3:00 p.m. to facility, will
sign on to Hospice once at facility. Bonita in admissions at [facility] aware of discharge plan. CM will continue to follow for all discharge planning needs.
Plan; return to [facility] with Hospice to sign on at facility, 3:00 p.m. transport, will need OOH DNR.
[facility]:
Report: [phone]
--- NOTE | 2024-05-19 13:36 | W.PN.HOSP.TC ---
Addendum entered and electronically signed by Travis Horton MD 05/19/24 16:43:
[id number]
Original Note:
Today's Communication/Plan
-
comfort
dc to hospice
Assessment / Plan
Assessment / Plan
#Sepstic shock
#Bacteremia with group B streptococcus
-Presented with positive SIRS criteria, blood cultures growing strep agalactiae; cannot rule out endocarditis versus infected permacath versus discitis
-Only 1 blood culture taken in the ED that returned positive, repeat blood culture also positive
-Suspicion for infected permacath though does not appear infectious, no tenderness or erythema
-MRSA swab returned negative; currently on vancomycin and aztreonam due to allergy history
-Per Reyes criteria, 1 major and 1 to minor criteria for failed indicating possibility of endocarditis
-Remains hemodynamically stable without vasopressors
-ID consulted, narrowed antibiotics to vancomycin only
-Now on comfort measures
#Status epilepsy
-Likely secondary to subacute left parietal ICH serving as nidus for seizure active
-Does have a history of seizures related to her ICH; on Depakote for seizure prophylaxis
-Developed myoclonic like spasms of her lower extremities here
-Labs on arrival did show Depakote levels were low
-Has retained consciousness, possibly muscle spasms versus partial seizure
-Remains in status today, now on lacosamide and VPA
-Now on comfort measures
#Hematoma
-The hematoma described on CT appears similar to the rectus sheath hematoma previously noted in prior notes.
-Holding anticoagulation due to recurrent ICH
-Trend CBC, consider repeat CT of hemoglobin drops
#ICH
-Most recent intracranial hemorrhage event in March 2024, has had multiple
-Was previously on warfarin; now on hold for recurrent ICH
-No anticoagulation until seen by neurosurgery as OP
#Recent NSTEMI
-Trop 1.5, trending down from recent admission
-will not trend further
-no chest pain
#Chronic HFrecEF
#Pulmonary HTN
#H/O LBBB
-Was recommended by cardiology to continue with conservative measures
-Continue with beta-jeet for GDMT of HFrecEF
-Volume status removal with dialysis sessions
#AFL
#H/O Paroxysmal AF
-Elevated [id number] though also significant ICH and GIB history
-Home medications include amiodarone and carvedilol; now off of warfarin
-Carvedilol was held upon admission for hypotension related to sepsis
-Currently tachycardic but regular; Continue on telemetry
-Poor candidate for DCCV or ablation
#S/P mechanical MVR
#S/P bioprosthetic AVR
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
-Was previously on warfarin however now DC'd due to ICH in 03/2024
#Chronic hypoxemic respiratory failure
-Per records, baseline 2 L oxygen via nasal cannula
-Likely secondary to heart failure and chronic volume overload
-No signs of hypercapnia; no history of ILD or other primary lung disease
-Home medications include bronchodilators as needed; no standing inhaler
#ESRD
#Secondary hyperparathyroidism
#Anemia of chronic kidney disease
-Suspect ESRD associated with T1DM history, possibly multifactorial
-Home medications include calcitriol for bone mineral disease
-Started on MANOLO for anemia, and midodrine for HotN previously
-Nephrology consulted to resume HD schedule
#T1DM
-Suspect that this is associated with ESRD
-Home regimen includes Lantus 10 units daily, Aspart 3U AC; no recent A1c
-Likely well-controlled due to her end-stage renal disease
-Accu-Cheks were added, as well as ISS
-Blood glucose goal 140-180
#Smoldering myeloma
-Unclear if this is still smoldering or has progressed
-Was started on dialysis within the last few months, light chain nephropathy (?)
-Should have repeat SPE, UPEP, Light chains as outpatient with oncology
-No evidence of hypercalcemia or bone lesions
#H/O multiple ICH from falls
-Multiple falls with ICH while on warfarin for AF and mechanical valve
-Currently off of warfarin; remains subtherapeutic
#H/O GIB
-Remains on warfarin due to mechanical valve
#Chronic constipation
-On as needed bowel regimen
#Chronic pain
-Remains on home as needed oxycodone regimen
DVT prophylaxis: Home warfarin, SCDs
Diet: Renal diet
CODE STATUS: Full code, GOC to be had with the daughter
DVT PPX: SCDs
Diet: Full liquid for comfort
Code status: DNR
Disposition: Dispo: Hospice at facility
More than 30 minutes spent in discharge including
Final examination of the patient
Summarizing hospital stay
Instructions for continuing care to all relevant caregivers
Preparation of discharge records, prescriptions, and referral forms
Total time spent (36 in minutes):
Anticipated Discharge: Today
Subjective/Interval History
-
Date of Service: May 19, 2024
No acute events
Objective Data
-
Vital Signs:
Vital Signs
Temp Pulse Resp BP Pulse Ox
98.0 F 65 20 137/58 100
05/19/24 07:00 05/19/24 07:00 05/19/24 07:00 05/19/24 07:00 05/19/24 07:00
I&O
05/18/24 05/19/24 05/20/24
06:59 06:59 06:59
Intake Total 0 / 0 0 / 0
Output Total 0 / 0 0 / 0
Balance 0 / 0 0 / 0
Review of Systems
-
History Source: Patient
All other systems: Not reviewed unless documented
Data Reviewed
-
Labs: Labs Reviewed by me and Discussed with Physician
== END 2024-05-19 15:18 | disposition hospice, inpatient (51) | DRG 64 ==
LOC: 4 WEST ACU 23:19
PROVIDERS: Internal Medicine; Nurse Practitioner Family; Student in an Organized Health Care Education/Training Program; ADMITTING PHYSICIAN Internal Medicine; ATTENDING PHYSICIAN Internal Medicine; CONSULT PHYSICIAN Internal Medicine Infectious Disease; CONSULT PHYSICIAN Internal Medicine Nephrology; CONSULT PHYSICIAN Psychiatry & Neurology Neurology; EMERGENCY PHYSICIAN Emergency Medicine; FAMILY PHYSICIAN Family Medicine; OTHER PHYSICIAN Internal Medicine Critical Care Medicine
PROC: 5A1D70Z Performance of Urinary Filtration, Intermittent, Less than 6 Hours Per Day (ICD-10-PCS; 2024-05-10)
DX: I62.9 Nontraumatic intracranial hemorrhage, unspecified (principal); A40.1 Sepsis due to streptococcus, group B; I21.4 Non-ST elevation (NSTEMI) myocardial infarction; G93.41 Metabolic encephalopathy; G93.6 Cerebral edema; J18.9 Pneumonia, unspecified organism; N18.6 End stage renal disease; R65.21 Severe sepsis with septic shock; T80.211A Bloodstream infection due to central venous catheter, initial encounter; Z66 Do not resuscitate; Z51.5 Encounter for palliative care; I13.2 Hypertensive heart and chronic kidney disease with heart failure and with stage 5 chronic kidney disease, or end stage renal disease; N25.81 Secondary hyperparathyroidism of renal origin; J96.11 Chronic respiratory failure with hypoxia; E87.20 Acidosis, unspecified; J44.0 Chronic obstructive pulmonary disease with (acute) lower respiratory infection; I50.32 Chronic diastolic (congestive) heart failure; E10.22 Type 1 diabetes mellitus with diabetic chronic kidney disease; I25.2 Old myocardial infarction; I48.0 Paroxysmal atrial fibrillation; E87.5 Hyperkalemia; D47.2 Monoclonal gammopathy; Y71.2 Prosthetic and other implants, materials and accessory cardiovascular devices associated with adverse incidents; G40.901 Epilepsy, unspecified, not intractable, with status epilepticus; G89.4 Chronic pain syndrome; D63.1 Anemia in chronic kidney disease; D69.6 Thrombocytopenia, unspecified; K59.09 Other constipation; L89.152 Pressure ulcer of sacral region, stage 2; I25.5 Ischemic cardiomyopathy; I25.10 Atherosclerotic heart disease of native coronary artery without angina pectoris; Z99.81 Dependence on supplemental oxygen; Z99.2 Dependence on renal dialysis; Z95.3 Presence of xenogenic heart valve; Z91.041 Radiographic dye allergy status; Z88.8 Allergy status to other drugs, medicaments and biological substances; Z88.6 Allergy status to analgesic agent; Z88.5 Allergy status to narcotic agent; Z88.1 Allergy status to other antibiotic agents; Z88.0 Allergy status to penicillin; Z79.899 Other long term (current) drug therapy; Z86.73 Personal history of transient ischemic attack (TIA), and cerebral infarction without residual deficits; Z86.74 Personal history of sudden cardiac arrest; Z87.892 Personal history of anaphylaxis; Z11.52 Encounter for screening for COVID-19
CPT/HCPCS: 36600; 70450; 71046; 71250; 74176; 80048; 80053; 80164; 80202; 82330; 82805; 82962; 83605; 84145; 84484; 85025; 85027; 85610; 86140; 87040; 87077; 87147; 87205; 87502; 87641; 87811; 93005; 94640; 95714; 95813; 96361; 96365; 96366; 96375; 99285; C9254; G0257; P9047; Q5106